=== PATIENT | male | born 1950 | race Caucasian/White ===

== ENCOUNTER 2019-10-03 09:22 | Outpatient (CLI) | payer MEDICARE, MEDICAID, SELFPAY ==
[2019-10-03 09:47] LABS: Basophils # 0.1 10^3/uL (0.0-0.1); Basophils % 0.7 %; Eosinophils # 0.1 10^3/uL (0.0-0.8); Hematocrit 51.9 % (42.0-52.0); Hemoglobin 16.6 g/dL (11.7-16.6); Lymphocytes # 1.9 10^3/uL (0.8-4.8); Mean Corpuscular Hemoglobin 32.9 pg (28.0-34.0); Mean Corpuscular Volume 102.8 fL (80-94); Mean Platelet Volume 9.7 fL (7.4-10.4); Monocytes # 0.8 10^3/uL (0.2-0.9); Monocytes % 8.4 %; Neutrophils # 6.6 10^3/uL (1.8-7.7); Neutrophils % 69.5 %; Nucleated Red Blood Cells % 0 %; Platelet Count 248 10^3/cmm (130-400); Red Blood Count 5.05 10^6/uL (4.1-5.3); Red Cell Distribution Width 13.2 % (12.1-15.1); White Blood Count 9.5 10^3/uL (4.0-10.0)
[2019-10-03 10:20] LABS: Estmated Average Glucose 157; Hemoglobin A1C 7.1 % (4.0-6.0)
[2019-10-03 10:49] LABS: Alanine Aminotransferase 20 U/L (0-41); Albumin Level 4.3 g/dL (3.5-5.2); Alkaline Phosphatase 73 IU/L (40-130); Anion Gap 18.2 (5-19); Aspartate Amino Transferase 20 U/L (0-40); Blood Urea Nitrogen 7 mg/dL (8-23); Calcium 9.3 mg/dL (8.5-10.5); Carbon Dioxide 30 mmol/L (22-29); Chloride 93 mmol/L (98-107); Chol HDL Ratio 4.61 mg/dL (1.0-5.00); Cholesterol 235 mg/dL (0-200); Globulin 3.3 g/dL (1.3-4.6); Glomerular Filtration Rate 83.9 mL/min (90-130); Glucose 134 mg/dL (65-115); HDL Cholesterol 51 mg/dL (60-100); LDL Cholesterol Calculated 143 mg/dL (50-129); Lactate Dehydrogenase 101 U/L (135-225); Magnesium 1.9 mg/dL (1.7-2.3); Osmolality Calculated 280 mOsm/kg (285-295); Potassium 5.2 mmol/L (3.5-5.1); Sodium 136 mmol/L (136-145); Total Bilirubin 0.6 mg/dL (0.15-1.2); Total Protein 7.6 g/dL (6.6-8.7); Triglycerides 206 mg/dL (0-150)
[2019-10-03 11:14] LABS: Prostate Specific Antigen 0.36 ng/mL (0-4)
== END 2019-10-03 09:23 | disposition home or self-care (01) ==
LOC: LAB 09:26
PROVIDERS: Family Provider Family Medicine; PCP Family Medicine; Visit Provider Family Medicine
DX: E11.65 Type 2 diabetes mellitus with hyperglycemia (principal); N42.9 Disorder of prostate, unspecified; I10 Essential (primary) hypertension; I48.91 Unspecified atrial fibrillation; J44.9 Chronic obstructive pulmonary disease, unspecified; E78.00 Pure hypercholesterolemia, unspecified
CPT/HCPCS: 80053; 80061; 82248; 83036; 83615; 83735; 84153; 85025

== ENCOUNTER 2019-12-28 13:21 | Outpatient (CLI) | payer MEDICARE, MEDICAID, SELFPAY ==
--- NOTE | 2019-12-28 13:32 | XR_ITS ---
WS: [id number] LUMBAR SPINE TECHNIQUE: 3 views of the lumbar spine CLINICAL INFORMATION: LOW BACK PAIN COMPARISON: None. FINDINGS: Osteopenia. Mild lumbar curve convex left. Disc space narrowing worse L4-5. Slight anterolisthesis L5 on S1 measuring 5.4 mm. Mild chronic compression superior endplate L3. Aortic calcification. Moderat e facet arthropathy L4-L5 and L5-S1. XR/XR lumbar spine 2-3V* [id number] IMPRESSION: 1. Mild lumbar curve convex left. Osteopenia. 2. Disc space narrowing worse L4-5. 3. Mild chronic compression inferior endplate L3. 4. 5.4 mm anterolisthesis L5 on S1.
--- NOTE | 2019-12-28 13:32 | XR_ITS ---
WS: [id number] HIP WITH PELVIS RIGHT TECHNIQUE: 3 views of the right hip with pelvis CLINICAL INFORMATION: RIGHT HIP PAIN COMPARISON: None. FINDINGS: Osteopenia. Moderate degenerative arthritis right hip. Joint space narrowing. No acute fractures. XR/XR hip RT 2-3V wo/w pel* [id number] IMPRESSION: Moderate degenerative arthritis right hip.
== END 2019-12-28 13:22 | disposition home or self-care (01) ==
LOC: LAB 13:27
PROVIDERS: Family Provider Family Medicine; PCP Family Medicine; Visit Provider Nurse Practitioner Family
DX: M54.5 Low back pain (principal); M25.551 Pain in right hip; M85.88 Other specified disorders of bone density and structure, other site; M48.56XA Collapsed vertebra, not elsewhere classified, lumbar region, initial encounter for fracture; M16.11 Unilateral primary osteoarthritis, right hip
CPT/HCPCS: 72100; 73502

== ENCOUNTER 2020-01-25 07:54 | Outpatient (CLI) | payer MEDICARE, MEDICAID, SELFPAY ==
--- NOTE | 2020-01-25 08:15 | CT_ITS ---
WS: [id number] CT LUMBAR SPINE TECHNIQUE: Noncontrast CT of the lumbar spine with coronal and sagittal reformatted images. CLINICAL INFORMATION: Low back pain COMPARISON: Radiograph December 28, 2019 DLP: 2043.[address] scans at [facility] use at least one of these dose optimization techniques: automat ed exposure control; mA and/or kV adjustment per patient size (includes targeted exams where dose is matched to clinical indication); or iterative reconstruction. FINDINGS: Mild lumbar curve convex left. Mild compression of the inferior endplate L3 with a small fracture steve ft. No retropulsion. This is new since 2017. Fracture cleft has a subacute appearance. Recommend shanta elation for low back pain. Small amount of sclerosis along the fracture. L1-L2: Normal. L2-L3: Disc osteophyte complex with slight impingement on the left subarticular recess. Mild central canal stenosis. Moderate facet arthropathy. Mild to moderate left and no significant right foraminal narrowing. Contact of the exiting left L2 nerve root. Mild facet arthropathy. L3-L4: Shallow right pericentral protrusion. Impingement on the traversing L3 nerve root. Moderate ce ntral canal stenosis. Mild left foraminal narrowing. Mild to moderate facet arthropathy. L4-L5: Disc osteophytic ridging. Slight effacement of ventral thecal sac. Mild central canal stenosis . Impingement on the exiting right L4 nerve root with moderate right foraminal narrowing. Mild left f oraminal narrowing. Moderate facet arthropathy. L5-S1: Tiny shallow central protrusion. Slight effacement of ventral thecal sac. Mild left and no sig nificant right foraminal narrowing. Mild facet arthropathy. Slightly ectatic distal abdominal aorta measuring 2.1 x 2.[address]/CT lumbar spine wo con* [id number] IMPRESSION: 1. Mild lumbar curve. 2. Mild compression of the inferior endplate L3 with fracture cleft has a suba cute appearance. Small amount of surrounding sclerosis. No retropulsion. Recomm end correlation for low back pain. This is new since 2017. 3. Mild central canal stenosis L2-L3, moderate central canal stenosis L3-4, an d mild central canal stenosis L4-5. 4. Shallow right subarticular protrusion L3-4 impinges the traversing right L4 nerve root. 5. Disc osteophyte complex L4-5 impinges the exiting right L4 nerve root with moderate right foraminal narrowing. Impingement right subarticular recess at th is level on traversing right L5 nerve root. 6. Shallow central protrusion L5-S1 with slight contact of the traversing S1 n erve roots without significant impingement.
--- NOTE | 2020-01-25 08:30 | XR_ITS ---
WS: [id number] LUMBAR SPINE FLEXION AND EXTENSION TECHNIQUE: 3 views of the lumbar spine: Lateral neutral, flexion, and extension views. CLINICAL INFORMATION: Low back pain COMPARISON: None. FINDINGS: Advanced spondylitic changes. Aortic calcification. Advanced facet arthropathy L5-S1 with bony forami nal narrowing. Mild compression inferior endplate L3 described on lumbar spine CT. Disc space narrowi ng worse at L4-L5. Osteopenia. No instability on flexion-extension. XR/XR lumbar spine f/e only [id number] IMPRESSION: 1. Mild compression inferior endplate L3 described on the lumbar spine CT. 2. Osteopenia. 3. No instability on flexion extension. 4. Disc space narrowing worse L4-5.
== END 2020-01-25 07:55 | disposition home or self-care (01) ==
LOC: RADWPI 07:57
PROVIDERS: Family Provider Family Medicine; PCP Family Medicine; Visit Provider Licensed Practical Nurse
DX: M48.56XA Collapsed vertebra, not elsewhere classified, lumbar region, initial encounter for fracture (principal); M85.88 Other specified disorders of bone density and structure, other site; M48.061 Spinal stenosis, lumbar region without neurogenic claudication; M25.78 Osteophyte, vertebrae; M51.27 Other intervertebral disc displacement, lumbosacral region
CPT/HCPCS: 72120; 72131

== ENCOUNTER 2020-02-28 09:44 | Outpatient (CLI) | payer MEDICARE, MEDICAID, SELFPAY ==
--- NOTE | 2020-02-28 10:00 | CT_ITS ---
WS: [id number] CT LUMBAR SPINE, noncontrast. HISTORY: Fracture TECHNIQUE: Contiguous 2.5 mm axial imaging are performed. Sagittal and coronal reformats are submitte d and reviewed. All CT scans at [facility] use at least one of these dose optimization te chniques: automated exposure control; mA and/or kV adjustment per patient size (includes targeted exa ms where dose is matched to clinical indication); or iterative reconstruction. IV contrast: None DLP: 1836.28 mGycm COMPARISON: 01/25/2020 Mild curvature the lower lumbar spine to the LEFT. There is asymmetric disc space narrowing at L4-5 w ith more significant narrowing on the RIGHT. Mild compression of the inferior endplate of L3 with a f racture still identified. No progression of the fracture and no displacement posteriorly. Approximate ly 20% fracture. L1-2: Normal. L2-3: Disc osteophyte complex encroaching upon the LEFT subarticular recess. Mild central stenosis du e to annular disc bulging, osteophytes and facet disease. Mild LEFT foraminal stenosis. L3-4: Mild annular disc bulging and facet arthritis. Mild osteophyte contact on the LEFT L3 nerve claude t. L4-5: Diffuse annular disc bulging and osteophytic ridging. Mild central stenosis and moderate RIGHT foraminal stenosis due to combination of osteophyte and facet arthritis. Mild stenosis LEFT foramen. L5-S1: Mild annular disc bulging with a central disc protrusion, mild effacement of the ventral theca l sac. Mild bilateral foraminal stenosis. Moderate atherosclerosis of aorta. Mild ectasia with no aneurysm. CT/CT lumbar spine wo con* [id number] IMPRESSION: 1. Unchanged subacute L3 compression fracture involving the inferior endplate without retropulsion. No progression. 2. Moderate RIGHT foraminal stenosis at L4-5 with mild central and LEFT forami nal stenosis, unchanged. 3. Are bilateral foraminal stenosis at L5-S1. 4. Disc osteophyte encroachment into the LEFT subarticular recess at L2-3 with mild LEFT foraminal stenosis. 5. Mild central stenosis at L2-3 and L3-4.
== END 2020-02-28 09:45 | disposition home or self-care (01) ==
LOC: RADWPI 09:47
PROVIDERS: Family Provider Family Medicine; PCP Family Medicine; Visit Provider Licensed Practical Nurse
DX: S32.030A Wedge compression fracture of third lumbar vertebra, initial encounter for closed fracture (principal); X58.XXXA Exposure to other specified factors, initial encounter; M48.061 Spinal stenosis, lumbar region without neurogenic claudication; M48.07 Spinal stenosis, lumbosacral region; M25.78 Osteophyte, vertebrae
CPT/HCPCS: 72131

== ENCOUNTER → 2020-03-01 13:26 | Outpatient (BNVA) | payer MEDICARE, MEDICAID, SELFPAY | PROVIDERS: Family Provider Family Medicine; PCP Family Medicine; Visit Provider Licensed Practical Nurse | DX: S32.030S Wedge compression fracture of third lumbar vertebra, sequela (principal); X58.XXXS Exposure to other specified factors, sequela; M51.16 Intervertebral disc disorders with radiculopathy, lumbar region; M48.062 Spinal stenosis, lumbar region with neurogenic claudication; M43.17 Spondylolisthesis, lumbosacral region; F17.210 Nicotine dependence, cigarettes, uncomplicated | CPT/HCPCS: 99213 ==

== ENCOUNTER → 2020-03-07 08:35 | Outpatient (BNVA) | payer MEDICARE, MEDICAID, SELFPAY | PROVIDERS: Family Provider Family Medicine; PCP Family Medicine; Visit Provider Urology | DX: Z12.5 Encounter for screening for malignant neoplasm of prostate (principal); N40.0 Benign prostatic hyperplasia without lower urinary tract symptoms; N40.1 Benign prostatic hyperplasia with lower urinary tract symptoms; N13.8 Other obstructive and reflux uropathy | CPT/HCPCS: 81001; 84153 ==

== ENCOUNTER → 2020-03-29 11:03 | Outpatient (BNVA) | payer MEDICARE, MEDICAID, SELFPAY | PROVIDERS: Family Provider Family Medicine; PCP Family Medicine; Visit Provider Specialist | DX: R05 Cough (principal); F17.210 Nicotine dependence, cigarettes, uncomplicated | CPT/HCPCS: 99213 ==

== ENCOUNTER 2020-05-01 09:37 | Outpatient (CLI) | payer MEDICARE, MEDICAID, SELFPAY ==
--- NOTE | 2020-05-01 10:00 | CT_ITS ---
WS: [id number] CT LUMBAR SPINE TECHNIQUE: Noncontrast CT of the lumbar spine with coronal and sagittal reformatted images. CLINICAL INFORMATION: Fracture COMPARISON: CT February 28, 2020 and 01/25/2020 DLP: 1798.[address] scans at [facility] use at least one of these dose optimization techniques: automat ed exposure control; mA and/or kV adjustment per patient size (includes targeted exams where dose is matched to clinical indication); or iterative reconstruction. FINDINGS: Mild lumbar curve. Again seen is mild compression inferior endplate L3 with fracture cleft. Small amount of sclerosis along the inferior endplate fracture cleft. No significant progression of the compression fracture. No significant retropulsion. Approximately 20% loss vertebral body height Disc space narrowing worse L4-5 with endplate sclerosis. L1-L2: Normal. L2-L3: Disc osteophyte complex with slight impingement on the left subarticular recess. Mild central canal stenosis. Moderate facet arthropathy. Mild to moderate left and no significant right foraminal narrowing. Contact of the exiting left L2 nerve root. Mild facet arthropathy. L3-L4: Shallow right pericentral protrusion. Impingement on the traversing right L3 nerve root. Moder ate central canal stenosis. Mild left foraminal narrowing. Mild to moderate facet arthropathy. L4-L5: Disc osteophytic ridging. Slight effacement of ventral thecal sac. Mild central canal stenosis . Impingement on the exiting right L4 nerve root with moderate right foraminal narrowing. Mild left f oraminal narrowing. Moderate facet arthropathy. L5-S1: Tiny shallow central protrusion. Slight effacement of ventral thecal sac. Mild left and no sig nificant right foraminal narrowing. Mild facet arthropathy. Slightly ectatic distal abdominal aorta measuring 2.1 x 2.[address]/CT lumbar spine wo con* [id number] IMPRESSION: 1. Unchanged L3 compression fracture involving the inferior endplate measuring approximately 20%. No retropulsion. This is unchanged. 2. No other significant changes from the prior examinations. 3. Stable ectatic distal abdominal aorta.
== END 2020-05-01 09:38 | disposition home or self-care (01) ==
LOC: RADWPI 09:47
PROVIDERS: Family Provider Family Medicine; PCP Family Medicine; Visit Provider Licensed Practical Nurse
DX: S32.030A Wedge compression fracture of third lumbar vertebra, initial encounter for closed fracture (principal); X58.XXXA Exposure to other specified factors, initial encounter; I77.811 Abdominal aortic ectasia
CPT/HCPCS: 72131

== ENCOUNTER → 2020-05-24 10:47 | Outpatient (BNVA) | payer MEDICARE, MEDICAID, SELFPAY | PROVIDERS: Family Provider Family Medicine; PCP Family Medicine; Visit Provider Licensed Practical Nurse | DX: S32.030S Wedge compression fracture of third lumbar vertebra, sequela (principal); M51.16 Intervertebral disc disorders with radiculopathy, lumbar region; M48.062 Spinal stenosis, lumbar region with neurogenic claudication; M43.17 Spondylolisthesis, lumbosacral region; X58.XXXS Exposure to other specified factors, sequela; F17.210 Nicotine dependence, cigarettes, uncomplicated | CPT/HCPCS: 99213 ==

== ENCOUNTER → 2020-06-12 10:34 | Outpatient (BNVA) | payer MEDICARE, MEDICAID, SELFPAY | PROVIDERS: Family Provider Family Medicine; PCP Family Medicine; Referring Provider Licensed Practical Nurse; Visit Provider Anesthesiology Pain Medicine | DX: M51.16 Intervertebral disc disorders with radiculopathy, lumbar region (principal); M47.816 Spondylosis without myelopathy or radiculopathy, lumbar region; M54.9 Dorsalgia, unspecified; S32.030S Wedge compression fracture of third lumbar vertebra, sequela; X58.XXXS Exposure to other specified factors, sequela; F17.210 Nicotine dependence, cigarettes, uncomplicated | CPT/HCPCS: 99204 ==

== ENCOUNTER → 2020-06-21 13:15 | Outpatient (BNVA) | payer MEDICARE, MEDICAID, SELFPAY | PROVIDERS: Family Provider Family Medicine; PCP Family Medicine; Visit Provider Anesthesiology Pain Medicine | DX: M51.16 Intervertebral disc disorders with radiculopathy, lumbar region (principal); M54.9 Dorsalgia, unspecified; F17.210 Nicotine dependence, cigarettes, uncomplicated | CPT/HCPCS: 64483; 64484; J1100; J3490 ==

== ENCOUNTER 2020-07-17 10:24 | Outpatient (CLI) | payer MEDICARE, MEDICAID, SELFPAY | END 2020-07-17 10:25 | disposition home or self-care (01) | PROVIDERS: PCP Family Medicine; Visit Provider Family Medicine | DX: B19.20 Unspecified viral hepatitis C without hepatic coma (principal) | CPT/HCPCS: 36416 ==

== ENCOUNTER 2020-10-14 08:22 | Outpatient (CLI) | payer MEDICARE, MEDICAID, SELFPAY ==
[2020-10-14 09:11] LABS: Basophils # 0.1 10^3/uL (0.0-0.1); Basophils % 1.3 %; Eosinophils # 0.2 10^3/uL (0.0-0.8); Eosinophils % 1.6 %; Hematocrit 47.9 % (42.0-52.0); Hemoglobin 16.2 g/dL (11.7-16.6); Lymphocytes # 1.8 10^3/uL (0.8-4.8); Lymphocytes % 19.2 %; Mean Corpuscular HGB Conc 33.8 g/dL (30.0-36.0); Mean Corpuscular Hemoglobin 32.5 pg (28.0-34.0); Mean Platelet Volume 9.6 fL (7.4-10.4); Monocytes # 0.8 10^3/uL (0.2-0.9); Monocytes % 8.8 %; Neutrophils # 6.62 10^3/uL (1.8-7.7); Neutrophils % 68.8 %; Nucleated Red Blood Cells % 0 %; Platelet Count 288 10^3/cmm (130-400); Red Blood Count 4.99 10^6/uL (4.1-5.3); Red Cell Distribution Width 13.8 % (12.1-15.1); White Blood Count 9.6 10^3/uL (4.0-10.0)
[2020-10-14 09:29] LABS: Alanine Aminotransferase 17 U/L (0-41); Albumin Level 4.1 g/dL (3.5-5.2); Alkaline Phosphatase 74 IU/L (40-130); Aspartate Amino Transferase 16 U/L (0-40); Blood Urea Nitrogen 10 mg/dL (8-23); Calcium 9.2 mg/dL (8.5-10.5); Carbon Dioxide 24 mmol/L (22-29); Chloride 96 mmol/L (98-107); Cholesterol 216 mg/dL (0-200); Globulin 3.3 g/dL (1.3-4.6); Glomerular Filtration Rate 111.8 mL/min (90-130); Glucose 126 mg/dL (65-115); HDL Cholesterol 48 mg/dL (60-100); LDL Cholesterol Calculated 118 mg/dL (50-129); LDL HDL Ratio 2.46 RATIO (0.00-3.22); Magnesium 1.8 mg/dL (1.7-2.3); Osmolality Calculated 281 mOsm/kg (285-295); Sodium 135 mmol/L (136-145); Total Bilirubin 0.6 mg/dL (0.15-1.2); Total Protein 7.4 g/dL (6.6-8.7); Triglycerides 252 mg/dL (0-150)
[2020-10-14 09:37] LABS: Anion Gap 18.8 (5-19); Potassium 3.8 mmol/L (3.5-5.1)
[2020-10-14 09:46] LABS: Lactate Dehydrogenase 144 U/L (135-225)
== END 2020-10-14 08:23 | disposition home or self-care (01) ==
LOC: LAB 08:26
PROVIDERS: PCP Family Medicine; Visit Provider Family Medicine
DX: R53.83 Other fatigue (principal); E11.65 Type 2 diabetes mellitus with hyperglycemia; E78.5 Hyperlipidemia, unspecified
CPT/HCPCS: 36415; 80053; 80061; 82248; 83615; 83735; 85025

== ENCOUNTER → 2021-03-07 07:56 | Outpatient (BNVA) | payer MEDICARE, MEDICAID, SELFPAY | PROVIDERS: PCP Family Medicine; Visit Provider Urology | DX: N40.1 Benign prostatic hyperplasia with lower urinary tract symptoms (principal); N13.8 Other obstructive and reflux uropathy; Z12.5 Encounter for screening for malignant neoplasm of prostate | CPT/HCPCS: G0103 ==

== ENCOUNTER → 2021-03-28 09:16 | Outpatient (BNVA) | payer MEDICARE, MEDICAID, SELFPAY | PROVIDERS: PCP Family Medicine; Visit Provider Specialist | DX: R05 Cough (principal); R55 Syncope and collapse | CPT/HCPCS: 99213 ==

== ENCOUNTER 2021-03-30 09:06 | Outpatient (CLI) | payer MEDICARE, MEDICAID, SELFPAY ==
[2021-03-30 09:24] VITALS: BMI 36.4
--- NOTE | 2021-03-30 09:24 | ECG_ITS ---
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 Interpretive Statements Name Of study: Lexiscan stress test Indication: Exertional dyspnea PROCEDURE: At the baseline, the blood pressure was 139/66 mmHg, oxygen saturation 93% with a heart rate of 73 bpm. The electrocardiogram showed normal sinus rhythm, normal axis with nonspecific T wave changes. The Lexiscan was infused over a period of 20 seconds. A total of 0.4 milligrams of Lexiscan was infused. The stress phase was continued for a total of 5 minutes. Heart rate at the end of the stress phase was 86 bpm, oxygen saturation 92% with a blood pressure of 123/56 mmHg. The EKG at the peak infusion revealed sinus rhythm with no significant ST-T wave changes. The study was terminated to protocol completion. Sestamibi was injected 20 seconds after the Lexiscan infusion. Blood pressure at the end of the recovery phase was 117/60 mmHg, oxygen saturation 91% with a heart rate of 87 beats per minute. CONCLUSION: 1. No significant EKG changes with the LexiScan infusion. 2. No LexiScan induced chest pain or cardiac arrhythmia. 3. Normal blood pressure and heart rate response. 4. Sestamibi/sestamibi perfusion scan pending; see separate report. Electronically Signed On 03-31-2021 18:04:08 CDT by Erna Sloan M.D. [id number]
--- NOTE | 2021-03-30 09:25 | NMCV_ITS ---
NM mejia perf SPECT r/s* [id number] Keith Pennington Age: 71 Gender: M : 1950 Exam Date: 03/30/2021 10:13 Ordering Phys: Erna Sloan MD ([email or web address]) Technologist: JAKUB Sellers Exam Location: [facility] Indications: CHEST PAIN STRESS TEST Please [facility] for [facility] IMAGE PROTOCOL Rest/Stress 1 Lexiscan Day Radiopharmaceutical Dose (mCi) Administration Site Administered by Rest: Tc-99m 10.7 IV JAKUB Pablo Sestamibi Stress:Tc-99m 33.0 IV JAKUB Pablo Sestamibi Rest: 30-Mar-2021 60 Discovery 630 Stress: 30-Mar-2021 30 Discovery 630 0.4mg Lexiscan. Images obtained in supine and prone position. SPECT RESULTS Technical Quality: Excellent Raw Data Analysis: Normal Image Corrections: No attenuation or motion correction applied Summed Stress Score: 8 Summed Rest Score: 5 Summed Difference Score: 3 PERFUSION FINDINGS Small sized perfusion abnormality of mild severity of mid to apical inferior and apical lateral wall on rest images with subtle reversibility in basal inferior and mid inferolateral dang on stress images. FUNCTIONAL RESULTS (calculated via Gated SPECT) Stress Image LV EF (%): 65 Stress EDV (mL):113 TID: 0.89 Stress ESV (mL):39 FUNCTIONAL FINDINGS: The left ventricle is normal in size. Transient Ischemia Dilatation of 0.89. There is normal left ventricular systolic function. The left ventricular ejection fraction is normal with a value of 65%. There is normal left ventricular wall thickening with no regional wall motion abnormality. IMPRESSIONS 1. Small sized partially reversible perfusion abnormality of basal to apical inferior, mid inferolateral and apical laterals. 2. This may represent old myocardial infarction in right coronary artery/circumflex artery territory with mild cheng-infarct ischemia. 3. Overall left ventricular systolic function is normal without regional wall motion abnormalities. 4. The left ventricular ejection fraction is normal with a value of 65%. 5. No significant EKG changes with Lexiscan infusion. Please refer to separate report for details. Erna Sloan MD (Electronically Signed) Final Date: 31 March 2021 18:05 S
[2021-03-30] MEDS: regadenoson 0.4 Mg/5 ml Syringe IVP (11:10)
[2021-03-30 11:16] VITALS: BP 117/60; PULSE 86
== END 2021-03-30 09:07 | disposition home or self-care (01) ==
LOC: CDL 09:09
PROVIDERS: PCP Family Medicine; Visit Provider Internal Medicine Cardiovascular Disease
DX: R07.9 Chest pain, unspecified (principal); R94.39 Abnormal result of other cardiovascular function study
CPT/HCPCS: 78452; 93017; A9500; J2785

== ENCOUNTER 2021-08-29 08:12 | Outpatient (CLI) | payer MEDICARE, MEDICAID, SELFPAY ==
[2021-08-29 08:56] LABS: Basophils # 0.1 10^3/uL (0.0-0.1); Basophils % 1.2 %; Eosinophils # 0.1 10^3/uL (0.0-0.8); Eosinophils % 1.1 %; Hematocrit 48.9 % (42.0-52.0); Hemoglobin 16.4 g/dL (11.7-16.6); Lymphocytes % 18.9 %; Mean Corpuscular HGB Conc 33.5 g/dL (30.0-36.0); Mean Corpuscular Hemoglobin 32.9 pg (28.0-34.0); Mean Platelet Volume 9.2 fL (7.4-10.4); Monocytes # 0.9 10^3/uL (0.2-0.9); Monocytes % 8.3 %; Neutrophils # 7.21 10^3/uL (1.8-7.7); Nucleated Red Blood Cells % 0 %; Platelet Count 309 10^3/cmm (130-400); Red Blood Count 4.99 10^6/uL (4.1-5.3); Red Cell Distribution Width 13.2 % (12.1-15.1); White Blood Count 10.3 10^3/uL (4.0-10.0)
[2021-08-29 09:32] LABS: Alanine Aminotransferase 18 U/L (0-41); Albumin Level 4.4 g/dL (3.5-5.2); Alkaline Phosphatase 79 IU/L (40-130); Blood Urea Nitrogen 12 mg/dL (8-23); Calcium 10.1 mg/dL (8.5-10.5); Carbon Dioxide 23 mmol/L (22-29); Chloride 94 mmol/L (98-107); Chol HDL Ratio 4.96 mg/dL (1.0-5.00); Cholesterol 233 mg/dL (0-200); Glomerular Filtration Rate 111.5 mL/min (90-130); Glucose 122 mg/dL (65-115); HDL Cholesterol 47 mg/dL (60-100); LDL Cholesterol Calculated 130 mg/dL (50-129); LDL HDL Ratio 2.77 RATIO (0.00-3.22); Magnesium 1.8 mg/dL (1.7-2.3); Osmolality Calculated 271 mOsm/kg (285-295); Prostate Specific Antigen 0.424 ng/mL (0-4); Sodium 130 mmol/L (136-145); Total Bilirubin 0.6 mg/dL (0.15-1.2); Total Protein 7.4 g/dL (6.6-8.7); Triglycerides 282 mg/dL (0-150)
[2021-08-29 09:38] LABS: Anion Gap 18.1 (5-19); Aspartate Amino Transferase 16 U/L (0-40); Potassium 5.1 mmol/L (3.5-5.1)
[2021-08-29 10:47] LABS: Lactate Dehydrogenase 199 U/L (135-225)
== END 2021-08-29 08:13 | disposition home or self-care (01) ==
PROVIDERS: PCP Family Medicine; Visit Provider Family Medicine
DX: Z01.89 Encounter for other specified special examinations (principal); R53.83 Other fatigue; Z79.899 Other long term (current) drug therapy
CPT/HCPCS: 36415; 80053; 80061; 82248; 83615; 83735; 84153; 85025; 86900

== ENCOUNTER 2021-09-12 09:46 | Outpatient (CLI) | payer MEDICARE, MEDICAID, SELFPAY ==
--- NOTE | 2021-09-12 09:56 | XR_ITS ---
WS: [id number] Exam: XR lumbar spine 2-3V* [id number] Date/Time of Exam: 09/12/2021 9:58 AM Reason For Exam: LOW BACK PAIN Comparison 01/25/2020. There is an old low-grade compression fracture of the inferior endplate of the L3. No other sign of l umbar fracture. A biconcave compression fracture of T12 has occurred since the prior study. No signif icant displacement. About 20% loss of vertebral height. Facet DJD at all levels. Disc degeneration a t L4-5. Mild spondylosis. Extensive aortoiliac atherosclerosis. XR/XR lumbar spine 2-3V* [id number] IMPRESSION: 1. Old low-grade compression fracture of the lower endplate of L3 without signi ficant displacement or loss of vertebral height. 2. No acute lumbar fracture is seen. 3. Biconcave compression fracture of T12 with about 20% loss of vertebral heigh t and no posterior displacement. This has occurred since the prior study. Fract ure age is indeterminate but the appearance is most suggestive of a healed frac ture. 4. Moderately advanced degenerative changes.
== END 2021-09-12 09:47 | disposition home or self-care (01) ==
PROVIDERS: PCP Family Medicine; Visit Provider Nurse Practitioner Family
DX: S22.088A Other fracture of T11-T12 vertebra, initial encounter for closed fracture (principal); X58.XXXA Exposure to other specified factors, initial encounter
CPT/HCPCS: 72100

== ENCOUNTER 2021-12-07 10:24 | Inpatient (IN) | payer MEDICARE, MEDICAID, SELFPAY ==
[2021-12-07] VITALS (11 sets, daily range): BP systolic 106–148; BP diastolic 60–79; PULSE 88–93; RESP 17–20; TEMP 36.6–36.8; O2SAT 87–94; BMI 33.4
--- NOTE | 2021-12-07 10:50 | ECG_ITS ---
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 Measurements Intervals [place] Rate: 90 P: 82 AK: 120 QRS: 53 QRSD: 82 T: 66 QT: 365 QTc: 449 Interpretive Statements SINUS RHYTHM NONSPECIFIC ST & T-WAVE ABNORMALITY No previous ECG available for comparison Electronically Signed On 12-07-2021 16:17:40 CDT by Erna Sloan M.D. [id number]
--- NOTE | 2021-12-07 10:50 | XR_ITS ---
WS: [id number] Portable AP upright chest, 12/07/2021 Clinical Data: chest pain Comparison: PA and lateral chest, 12/08/2017. Findings: There is a 7.9 cm density adjacent to the right tracheobronchial region. This has irregular border and is consistent with cancer of the lung. There is patchy opacity in the right lower lobe w hich may represent atelectasis or obstructive pneumonia. The left lung is clear. There is a recording device over the left hilum. No pneumothorax is present. The heart is normal. Monitor leads are on th e chest wall. XR/XR chest 1V portable [id number] Impression: 1. Probable right upper lobe mass suggestive of cancer of the lung. 2. Patchy opacity in right lower lobe which could represent obstructive pneumon ia or atelectasis. 3. Recommend CT scan of the chest.
--- NOTE | 2021-12-07 10:52 | PC.NURSE ---
Pt O2 Sat 82% after ambulation. Placed on O2 at 4L/NC once in bed, SpO2 up to 93% at rest
--- NOTE | 2021-12-07 10:58 | PC.NURSE ---
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
--- NOTE | 2021-12-07 11:11 | W.ED.CHESTPA ---
HPI - Chest Pain General: Chief Complaint: Chest Pain Stated Complaint: Low O2 Time Seen by Provider: 12/07/21 10:50 Source: patient Mode of arrival: ambulatory Limitations: no limitations History of Present Illness: 71-year-old male who states over the last 3 to 4 days has been having this cough with increasing shortness of breath. States his cough has been productive with low-grade fevers does have a history of COPD and longtime smoker patient is requiring 3 to 4 L of oxygen here does not wear oxygen at home baseline oxygen here was in the 80s. He has had some slight chest pain from coughing no vomiting no diarrhea Associated symptoms: Reports dyspnea and fever(s); Deny abdominal pain, nausea or vomiting Review of Systems Const: Reports: fever(s); Denies: chills, body aches or change in appetite Eyes: Denies: blurry vision or eye discomfort ENMT: Denies: throat pain or dental pain Card: Denies: chest pain Resp: Reports: dyspnea and non-productive cough GI: Denies: abdominal pain, nausea, vomiting or diarrhea : Denies: dysuria Musc: Denies: neck pain or back pain Skin/Breast: Denies: rash Neuro: Denies: headache(s) Psych: Denies: depression Jovany/Lymph: Denies: easy bruising All/Imm: Denies: urticaria PFSH ED PFSH: Medical History Asthmatic bronchitis Atrial fibrillation BPH (benign prostatic hyperplasia) BPH w urinary obs/LUTS COPD (chronic obstructive pulmonary disease) Cough syncope Diabetes Gross hematuria High cholesterol Intervertebral disc disorder with radiculopathy of lumbar region Kidney lesion Lumbar compression fracture 12/10/2019 Lumbar stenosis with neurogenic claudication Myalgia Seizure Sinusitis Skin cancer Spondylolisthesis of lumbosacral region Syncope and collapse Tobacco abuse Surgical History History of appendectomy History of eye surgery (~01/18/20) Status post placement of implantable loop recorder 12/17/2018 Family History Father , at age 80 CAD (coronary artery disease) Mother , at age 85 CAD (coronary artery disease) Stroke Family/Other CAD (coronary artery disease) Cancer Hyperlipidemia Sister Cancer Social History Alcohol intake: never Household members: significant other and children Marital status: Life Partner Current occupational status: disabled History of recent travel: No Physical Exam Const: COMMON NORMALS: patient oriented x3 GENERAL APPEARANCE: in distress and ill appearing HENMT: COMMON NORMALS: normocephalic and atraumatic HEAD & SCALP: normocephalic and atraumatic Eye: COMMON NORMALS: Equal, round and reactive pupils present and EOMs intact bilaterally PUPIL: Yes Equal, round and reactive pupils present Neck/C-Spine: COMMON NORMALS: full ROM and supple Chest: COMMONS NORMALS: normal inspection of the chest and normal palpation of entire chest wall Resp: EFFORT & INSPECTION: Yes tachypneic and Yes respiratory distress AUSCULTATION: rales Cardio: COMMON NORMALS: regular rate, regular rhythm and No murmurs present (Cardio) RATE: regular rate RHYTHM: regular rhythm GI: COMMON NORMALS: Normal to inspection, nondistended, normoactive bowel sounds present, Soft to palpation, non-tender and no masses PALPATION: Yes Soft to palpation Extremity: COMMON NORMALS: normal to inspection and full ROM Neuro: COMMON NORMALS: patient oriented x3, moves all extremities and no focal motor deficits Psych: COMMON NORMALS: mental status grossly normal, Normal thought process present and cooperative THOUGHT PROCESS: Normal thought process present Skin: COMMON NORMALS: no rashes or lesions noted and no wounds GENERAL SKIN EXAM: no rashes or lesions noted Course Vital Signs: Vital signs: Vital Signs Temperature 97.8 F 12/07/21 10:40 Pulse Rate 90 12/07/21 11:47 Respiratory Rate 18 12/07/21 11:42 Blood Pressure 106/63 12/07/21 10:40 Pulse Oximetry 94 12/07/21 11:42 MDM - Chest Pain Medical Decision Making Patient presents here with cough fever found to have a pneumonia along with a possible lung mass he is hypoxic as well requiring oxygen I spoke to hospitalist will admit at this time. Lab Data : 12/07/21 11:13 12/07/21 11:13 Radiology Impressions Chest X-Ray 12/07/21 10:50 Impression: 1. Probable right upper lobe mass suggestive of cancer of the lung. 2. Patchy opacity in right lower lobe which could represent obstructive pneumonia or atelectasis. 3. Recommend CT scan of the chest. Laboratory Results WBC 14.2 10^3/uL (4.0-10.0) H 12/07/21 11:13 RBC 4.54 10^6/uL (4.1-5.3) 12/07/21 11:13 Hgb 14.1 g/dL (11.7-16.6) 12/07/21 11:13 Hct 41.8 % (42.0-52.0) L 12/07/21 11:13 MCV 92.1 fl (80-94) 12/07/21 11:13 MCH 31.1 pg (28.0-34.0) 12/07/21 11:13 MCHC 33.7 g/dL (30.0-36.0) 12/07/21 11:13 RDW 13.3 % (12.1-15.1) 12/07/21 11:13 Plt Count 501 10^3/cmm (130-400) H 12/07/21 11:13 MPV 9.1 fL (7.4-10.4) 12/07/21 11:13 Neut % (Auto) 80.4 % 12/07/21 11:13 Lymph % (Auto) 11.4 % 12/07/21 11:13 Stewart % (Auto) 6.6 % 12/07/21 11:13 Eos % (Auto) 0.4 % 12/07/21 11:13 Baso % (Auto) 0.5 % 12/07/21 11:13 Neut # (Auto) 11.39 10^3/uL (1.8-7.7) H 12/07/21 11:13 Lymph # (Auto) 1.6 10^3/uL (0.8-4.8) 12/07/21 11:13 Stewart # (Auto) 0.9 10^3/uL (0.2-0.9) 12/07/21 11:13 Eos # (Auto) 0.1 10^3/uL (0.0-0.8) 12/07/21 11:13 Baso # (Auto) 0.1 10^3/uL (0.0-0.1) 12/07/21 11:13 Nucleated RBC % (auto) 0 % 12/07/21 11:13 Nucleated RBCs # 0.0 /100WBC 12/07/21 11:13 Sodium 127 mmol/L (136-145) L 12/07/21 11:13 Potassium 3.8 mmol/L (3.5-5.1) 12/07/21 11:13 Chloride 90 mmol/L (98-107) L 12/07/21 11:13 Carbon Dioxide 22 mmol/L (22-29) 12/07/21 11:13 Anion Gap 19.8 (5-19) H 12/07/21 11:13 BUN 7 mg/dL (8-23) L 12/07/21 11:13 Creatinine 0.6 mg/dL (0.7-1.2) L 12/07/21 11:13 GFR Calculation 133.2 mL/min (90-130) H 12/07/21 11:13 Glucose 134 mg/dL (65-115) H 12/07/21 11:13 Calculated Osmolality 264 mOsm/kg (285-295) L 12/07/21 11:13 Calcium 8.9 mg/dL (8.5-10.5) 12/07/21 11:13 Total Bilirubin 0.5 mg/dL (0.15-1.2) 12/07/21 11:13 AST 28 U/L (0-40) 12/07/21 11:13 ALT 20 U/L (0-41) 12/07/21 11:13 Alkaline Phosphatase 181 IU/L (40-130) H 12/07/21 11:13 Troponin T Baseline 12 ng/L (0-15) 12/07/21 11:13 Total Protein 7.3 g/dL (6.6-8.7) 12/07/21 11:13 Albumin 3.0 g/dL (3.5-5.2) L 12/07/21 11:13 Globulin 4.1 g/dL (1.3-4.6) 12/07/21 11:13 SARS-CoV-2 Ag (Rapid) Negative (Negative) 12/07/21 11:20 EKG Data EKG 1: I personally reviewed and interpreted this EKG as follows: EKG interpretation date: 12/07/21 EKG interpretation time: 10:36 Interpretation: nsr hr [address] or t wave abnormalities qrs 82 qtc 413 Critical Care Time Critical Care Time: Critical Care Time: Yes Total Critical Care Time: 40 Attestation: The high probability of a clinically significant, sudden or life threatening deterioration of the patient's pulm system(s) required my full and direct attention, intervention and personal management. The critical care time is as shown. This time is in addition to time spent performing any reported procedures but includes the following: [x] Data and vital sign review and interpretation [x] Patient assessment, examination and intervention [x] Documentation [x] Medication orders and management Discharge Plan Discharge Patient Disposition: Admitted As Inpatient Clinical Impression: Pneumonia, Lung mass, Acute respiratory failure with hypoxemia Condition: Stable Coding Level of Care Code ED Bath Mix Operator for José Miguel Fwerendira Exam Comprehensive
--- NOTE | 2021-12-07 11:26 | CTR_ITS ---
PROCEDURE INFORMATION: Exam: CT Chest Without Contrast; Diagnostic Exam date and time: 12/07/2021 11:37 AM Age: 71 years old Clinical indication: Shortness of breath; Additional info: SOB TECHNIQUE: Imaging protocol: Diagnostic computed tomography of the chest without contrast. Radiation optimization: All CT scans at this facility use at least one of these dose optimization techniques: automated exposure control; mA and/or kV adjustment per patient size (includes targeted exams where dose is matched to clinical indication); or iterative reconstruction. COMPARISON: CT chest w con* [id number] 12/17/2017 8:46 AM RADIATION DOSE METRICS: Total DLP (mGy-cm): 989.86 FINDINGS: Lungs: Patulous consolidative opacities centered in the medial and posterior aspects of the right upper lobe. Broad regions of ground-glass opacity also noted within the right middle and lower lobes. These findings are new from most recent comparison. Pleural spaces: Small volume parapneumonic effusion. No pneumothorax. Heart: Coronary artery calcifications noted. No cardiomegaly. No pericardial effusion. Lymph nodes: Unremarkable. No enlarged lymph nodes. Vasculature: Unremarkable. No aortic aneurysm. Bones/joints: Moderate chronic appearing compression deformity with sclerosis involving the L1 vertebral body. Soft tissues: Loop recorder device noted in the left chest wall. CT/CT chest wo con [id number] IMPRESSION: Multifocal pneumonia throughout the right lung with small volume parapneumonic effusion.
[2021-12-07 11:33] LABS: Basophils # 0.1 10^3/uL (0.0-0.1); Basophils % 0.5 %; Eosinophils # 0.1 10^3/uL (0.0-0.8); Eosinophils % 0.4 %; Hematocrit 41.8 % (42.0-52.0); Hemoglobin 14.1 g/dL (11.7-16.6); Lymphocytes # 1.6 10^3/uL (0.8-4.8); Lymphocytes % 11.4 %; Mean Corpuscular HGB Conc 33.7 g/dL (30.0-36.0); Mean Corpuscular Hemoglobin 31.1 pg (28.0-34.0); Mean Corpuscular Volume 92.1 fl (80-94); Mean Platelet Volume 9.1 fL (7.4-10.4); Monocytes # 0.9 10^3/uL (0.2-0.9); Monocytes % 6.6 %; Neutrophils # 11.39 10^3/uL (1.8-7.7); Neutrophils % 80.4 %; Nucleated Red Blood Cells % 0 %; Platelet Count 501 10^3/cmm (130-400); Red Blood Count 4.54 10^6/uL (4.1-5.3); Red Cell Distribution Width 13.3 % (12.1-15.1); White Blood Count 14.2 10^3/uL (4.0-10.0)
[2021-12-07] MEDS: ipratropium-albuterol 3 mL Neb INHALATION ×3 (11:42→20:01)
[2021-12-07 11:55] LABS: Alanine Aminotransferase 20 U/L (0-41); Aspartate Amino Transferase 28 U/L (0-40); Calcium 8.9 mg/dL (8.5-10.5); Carbon Dioxide 22 mmol/L (22-29); Total Bilirubin 0.5 mg/dL (0.15-1.2); Total Protein 7.3 g/dL (6.6-8.7)
[2021-12-07 11:56] LABS: Troponin(5th) Baseline 12 ng/L (0-15)
[2021-12-07 11:58] LABS: SARS Covid-2 Antigen Negative (Negative)
[2021-12-07 12:05] LABS: Alkaline Phosphatase 181 IU/L (40-130); Blood Urea Nitrogen 7 mg/dL (8-23); Chloride 90 mmol/L (98-107); Globulin 4.1 g/dL (1.3-4.6); Glomerular Filtration Rate 133.2 mL/min (90-130); Glucose 134 mg/dL (65-115); Osmolality Calculated 264 mOsm/kg (285-295); Sodium 127 mmol/L (136-145)
[2021-12-07 12:06] LABS: Anion Gap 19.8 (5-19); Potassium 3.8 mmol/L (3.5-5.1)
[2021-12-07] MEDS: cefTRIAXone 1,000 MG in sodium chloride 0.9% (plus) 50 ML 100 MG IV (12:21)
[2021-12-07] MEDS: azithromycin 500 MG in sodium chloride 0.9% 250 ML 250 MG IV (12:25)
--- NOTE | 2021-12-07 12:50 | ECG_ITS ---
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 Measurements Intervals [place] Rate: 88 P: 82 WA: 124 QRS: 55 QRSD: 82 T: 63 QT: 372 QTc: 451 Interpretive Statements SINUS RHYTHM NONSPECIFIC T-WAVE ABNORMALITY Compared to ECG 12/07/2021 10:36:47 No significant changes Electronically Signed On 12-07-2021 16:24:09 CDT by Erna Sloan M.D. [id number]
--- NOTE | 2021-12-07 13:05 | P.HP_ITS ---
Providers/Chief Complaint Admitting Physician: Yinka Hernandez MD Primary Care Provider: Fox Alston Chief Complaint: Low O2 History of Present Illness Keith Pennington is a 71 year old male with past medical history of atrial fibrillation, chronic smoker, COPD, recurrent episode of syncope with implantable loop recorder, CAD, recent positive stress test awaiting cardiac cat heterization. He presents to the ER today with worsening shortness of breath over the last 3 weeks along with cough and expectoration which he attributes to a possible congestive heart failure Denies any hemoptysis. States shortness of breath gets worse on walking around and on talking. Denies any orthopnea and PND. usually is not able to sleep at night because of prostate issues but never woken up because of difficulty in breathing. States he has lost around 15 pounds over the last 2 weeks. Has noticed some swelling in his legs. Complaining of runny nose and postnasal drip. Denies any sick contact or recent travels. Review of Systems General: Reports: 10 or more systems reviewed and unremarkable except in HPI and below Const: Denies: fever(s), chills, body aches, change in appetite, change in weight, malaise, night sweats, diaphoresis, change in sleep pattern, daytime sleepiness or snoring Eyes: Denies: change in vision, blurry vision, photophobia, eye discomfort or eye discharge ENMT: Denies: throat pain, enlarged tonsils, hoarseness, mouth pain, oral sores, dry mouth, tinnitus, nasal congestion or post nasal drip Card: Denies: chest pain, palpitations, irregular heart rhythm, edema, swelling of feet/ankles, lightheadedness, syncope, pre-syncope, dyspnea on exe rtion, orthopnea, leg pain with exertion or acrocyanosis Resp: Denies: dyspnea, productive cough, non-productive cough, wheezing, stridor, pain on inspiration, change in phlegm color, hemoptysis or chest congestion GI: Denies: abdominal pain, nausea, vomiting, hematemesis, coffee ground emesis, dysphagia, heartburn, diarrhea, constipation, bloating, GI cramping, change in bowel habits, pain on defecation, hematochezia or melena : Denies: flank pain, difficulty urinating, dysuria, urinary frequency, urin jose urgency, urinary hesitancy, urinary dribbling, difficulty starting urination, change in urine stream, nocturia or hematuria Musc: Denies: neck pain, back pain, extremity pain, joint pain, joint swelling, joint redness, joint stiffness or limited range of motion Neuro: Denies: headache(s), numbness in extremities, weakness in extremities, sensory changes, lack of coordination, difficulty walking, frequent falls, dizziness, vertigo, confusion, Slurred speech present, difficulty communicating thoughts or seizure-like activity Psych: Denies: anxiety, depression, mood swings, panic attacks, hopelessness or irritability Endo: Denies: polyuria, polydipsia, tired all the time, cold intolerance, excessive sweating, flushing or heat intolerance Jovany/Lymph: Denies: easy bruising or easy bleeding All/Imm: Denies: tongue swelling, facial swelling or acute wheezing Medications/Allergies Home Medications Medication Instructions Recorded Confirmed Last Taken Type albuterol sulfate 90 mcg/actuation 2 puff INHALATION Q6H PRN 08/05/19 12/07/21 12/07/21 History aerosol inhaler (ProAir HFA) amlodipine 10 mg tablet 10 mg PO QDAY 08/05/19 12/07/21 12/06/21 History budesonide-formoterol HFA 160 2 puff INHALATION BID 08/05/19 12/07/21 12/07/21 History mcg-4.5 mcg/actuation aerosol inhaler (Symbicort) fluticasone furoate 200 1 inh INHALATION Q24H 08/05/19 12/07/21 12/07/21 History mcg-vilanterol 25 mcg/dose inhalation powder (Breo Ellipta) fluticasone propionate 50 1 spray INTRANASAL BID 08/05/19 12/07/21 12/07/21 History mcg/actuation nasal spray,suspension ibuprofen 800 mg tablet 800 mg PO Q8H 08/05/19 12/07/21 12/06/21 History metformin 500 mg tablet 500 mg PO BID 08/05/19 12/07/21 12/07/21 History tiotropium bromide 18 mcg capsule 1 cap INHALATION QDAY 08/05/19 12/07/21 12/07/21 History with inhalation device (Spiriva with HandiHaler) tizanidine 4 mg tablet 4 mg PO Q8H PRN 08/05/19 12/07/21 Unknown History nitroglycerin 2.5 mg 2.5 mg PO DAILY cap 02/07/20 12/07/21 12/06/21 History capsule,extended release fluoxetine 20 mg capsule (Prozac) 20 mg PO BID cap 03/07/20 12/07/21 12/07/21 History omeprazole 20 mg capsule,delayed 20 mg PO BID cap 03/07/20 12/07/21 12/07/21 History release simvastatin 20 mg tablet 40 mg PO QDAY tab 03/07/20 12/07/21 12/06/21 History finasteride 5 mg tablet 5 mg PO DAILY 03/07/21 12/07/21 12/06/21 History levetiracetam 500 mg tablet 500 mg PO BID 90 Days #180 tab 03/28/21 12/07/21 12/07/21 Rx (Keppra) metoprolol succinate 25 mg 25 mg PO BID #180 tab 05/04/21 12/07/21 12/07/21 Rx tablet,extended release 24 hr aspirin 81 mg tablet,delayed 81 mg PO QDAY #90 tab 06/08/21 12/07/21 12/07/21 Rx release (Adult Low Dose Aspirin) tamsulosin 0.4 mg capsule 0.4 mg PO DAILY #90 cap 06/27/21 12/07/21 12/07/21 Rx furosemide 20 mg tablet 20 mg PO QAM tab 08/03/21 12/07/21 12/06/21 History semaglutide 3 mg tablet (Rybelsus) 3 mg PO DAILY 08/03/21 12/07/21 12/07/21 History apixaban 5 mg tablet (Eliquis) 5 mg PO BID #180 tab 10/12/21 12/07/21 12/07/21 Rx isosorbide dinitrate 5 mg tablet 5 mg PO BID 12/07/21 12/07/21 12/07/21 History promethazine-DM 6.25 mg-15 mg/5 mL 5 ml PO Q6H PRN 12/07/21 12/07/21 12/07/21 History oral syrup Allergies Allergy/AdvReac Type Severity Reaction Status Date / Time No Known Allergies Allergy Verified 12/07/21 12:37 PFSH Acute PFSH: Medical History (Updated 12/07/21 @ 13:33 by Yinka Hernandez MD) Asthmatic bronchitis Atrial fibrillation BPH (benign prostatic hyperplasia) BPH w urinary obs/LUTS COPD (chronic obstructive pulmonary disease) Cough syncope Diabetes Facet arthropathy, lumbar Gross hematuria High cholesterol Intervertebral disc disorder with radiculopathy of lumbar region Kidney lesion Kidney lesion Lumbar compression fracture 12/10/2019 Lumbar stenosis with neurogenic claudication Myalgia Positive cardiac stress test Seizure Sinusitis Skin cancer Spinal stenosis, lumbar region with neurogenic claudication Spondylolisthesis of lumbosacral region Syncope and collapse Tobacco abuse Surgical History History of appendectomy History of eye surgery (~01/18/20) Status post placement of implantable loop recorder 12/17/2018 Family History Father , at age 80 CAD (coronary artery disease) Mother , at age 85 CAD (coronary artery disease) Stroke Family/Other CAD (coronary artery disease) Cancer Hyperlipidemia Sister Cancer Social History Alcohol intake: never Household members: significant other and children Marital status: Life Partner Current occupational status: disabled History of recent travel: No Vitals/I&O/Wt Last Vital Signs Temp 97.8 F 12/07/21 10:40 Pulse 88 12/07/21 12:43 Resp 18 12/07/21 12:43 BP 121/79 12/07/21 12:43 Pulse Ox 93 12/07/21 12:43 Weight last 48 hrs Weight 105.687 kg Physical Exam Narrative: General: No acute distress, AO x3 HEENT: PERRLA, pupils bilaterally equal and reactive Chest: Bilateral bronchial breath sounds, coarse crackles present in right lower zone, decreased air entry right upper zone, coarse crackles present bilateral lower zones CVS: S1-S2 regular, no murmurs, no tachycardia, no gallops, no rubs Abdomen: Soft, nontender, no organomegaly, bowel sounds present Neuro: No focal deficits, no facial deformity, AO x3, power 5/5 in all limbs Data : 12/07/21 11:13 12/07/21 11:13 Micro: Microbiology 12/07/21 11:22 Blood Culture - Preliminary Blood SPECIMEN COLLECTED 12/07/21 11:13 Blood Culture - Preliminary Blood SPECIMEN COLLECTED A&P Assessment and plan (1) Acute respiratory failure with hypoxemia: Status: Acute (2) Dyspnea on exertion: Status: Acute (3) Pneumonia: Status: Acute (4) Lung mass: Status: Acute (5) COPD (chronic obstructive pulmonary disease): Status: Acute (6) Atrial fibrillation: Status: Acute Qualifiers: Atrial fibrillation type: paroxysmal Qualified Code(s): I48.0 - Paroxysmal atrial fibrillation (7) Diabetes: Status: Acute Qualifiers: Diabetes mellitus complication status: without complication Diabetes mellitus terminal computer operator insulin use: without terminal computer operator use Diabetes mellitus type: type 2 Qualified Code(s): E11.9 - Type 2 diabetes mellitus without comp lications (8) Positive cardiac stress test: Status: Acute (9) Smoking: Status: Acute (10) Hyponatremia: Most likely secondary to hypervolemic hyponatremia cannot rule out SIADH given possibility of lung malignancy. Check urine lites, urine osmolality. IV Lasix 40 mg once. Fluid restriction. Continue to monitor daily for now. Status: Acute Plan Hypoxic respiratory failure: Chest x-ray done today concerning for possible lung mass in right upper lobe, postobstructive pneumonia in right lower lobe leading to COPD exacerbation. Check D-dimer, sputum culture, urine Legionella, bacterial antigen, MRSA swab, flu swab, sputum culture, COVID-19 PCR, proBNP. Depending on level of D-dimer will plan for CT chest versus CTA. For now continue with treatment for community-acquired pneumonia with azithromycin 500 mg oral daily, ceftriaxone IV 1 g daily. Cannot rule out mucous plug. Aggressive pulmonary toilet with incentive spirometry and chest vest. For COPD exacerbation: DuoNebs every 6 hour, budesonide twice daily. IV Solu-Medrol 40 mg twice daily for now. Will do a quick taper. Cannot rule out possible congestive heart failure. Patient has history of positive stress test with CAD. Fluid restriction up to 1500 cc. Check proBNP. IV Lasix 40 mg once. Will dose Lasix as per clinical picture. Strict input output charting, daily weights. Chronic smoker. History of seizures. Atrial fibrillation: Continue with home dose of metoprolol. Eliquis for anticoagulation. History of CAD: Positive stress test within last 6 months. Awaiting early cardiac angiogram. Continue with home dose of aspirin, statin, beta-gracie, Imdur. Hypertension: Goal blood pressure less than 140/90 mmHg. Full code. Cardiac carb consistent diet. Eliquis will suffice for DVT prophylaxis. Famotidine for PUD prophylaxis. Attestations Medical Necessity Statement*: Admission for more than 2 midnights for management of hypoxic respiratory failure secondary to postobstructive pneumonia, possible right lung mass Time Spent in Patient Care: Greater than 35 minutes Coding Level of Care Code Acute Articulation Officer for [facility] Diagnoses Acute respiratory failure with hypoxemia J96.01 Dyspnea on exertion R06.00 Pneumonia J18.9 Lung mass R91.8 COPD (chronic obstructive pulmonary disease) J44.9 Atrial fibrillation I48.0 Atrial fibrillation type: paroxysmal Diabetes E11.9 Diabetes mellitus complication status: without complication Diabetes mellitus long-term insulin use: without long-term use Diabetes mellitus type: type 2 Positive cardiac stress test R94.39 Smoking F17.200 Hyponatremia E87.1
--- NOTE | 2021-12-07 13:09 | USCV_ITS ---
Keith Pennington Age: 71 Gender: M : 1950 Exam Date: 12/07/2021 16:11 Ordering Phys: Yinka Hernandez MD Technologist: Lucero Michaud Exam Location: [facility] [place] Indication: chf BP: 121 / 79 HR: 124 Rhythm: Sinus Technical Quality: Adequate MEASUREMENTS (Male / Female) Normal Values 2D ECHO LV Diastolic Diameter PLAX 5.1 cm 4.2 - 5.9 / 3.9 - 5.3 cm LV Systolic Diameter PLAX 3.4 cm LV Chamber Size 4.0 cm IVS Diastolic Thickness 1.2 cm 0.6 - 1.0 / 0.6 - 0.9 cm IVS Systolic Thickness 1.2 cm LVPW Diastolic Thickness 1.8 cm 0.6 - 1.0 / 0.6 - 0.9 cm LVPW Systolic Thickness 1.5 cm RV Chamber Size 3.3 cm LVOT Diameter 2.0 cm LV Ejection Fraction 2D Teich 59.9 % LV Ejection Fraction MOD 2C 47.1 % LV Ejection Fraction 2C AL 48.5 % LA Diameter 3.3 cm LA Width 3.3 cm LA Height 5.0 cm RA Width 3.1 cm RA Height 4.8 cm Aorta at Sinotubular Diameter 2.9 cm IVC Diameter 1.9 cm M-MODE Aortic Annulus Diameter 3.6 cm LA Ao Ratio MM 1.0 MV E Point Septal Separation 0.8 cm DOPPLER AV Peak Velocity 163.0 cm/s LVOT Peak Velocity 114.0 cm/s AV Area Cont Eq vti 2.8 cm squared AV Area Cont Eq pk 2.2 cm squared MV Area PHT 3.7 cm squared Mitral E to A Ratio 0.8 MV E' Velocity 46.5 cm/s Mitral E to MV E' Ratio 12.3 Mitral E to LV E' Lateral Ratio 11.8 Mitral E to LV E' Septal Ratio 13.1 TR Peak Velocity 198.3 cm/s TR Peak Gradient 15.7 mmHg TR Mean Velocity 138.3 cm/s TR Mean Gradient 8.9 mmHg TR Velocity Time Integral 42.4 cm TV Peak E Velocity 56.0 cm/s Right Atrial Pressure 3.0 mmHg Pulmonary Artery Systolic Pressu 18.7 mmHg PV Peak Velocity 72.0 cm/s RV Acceleration Time 0.2 s RV Ejection Time 0.3 s RV AcT/ET 0.5 FINDINGS Left Ventricle Normal left ventricular size. LV systolic function is borderline normal with EF of 50-55%. Normal wall motion abnormalities are seen. Grade 1 diastolic dysfunction Right Ventricle The right ventricle is normal in size and function. Right Atrium The right atrium is normal in size. Left Atrium The left atrium is normal in size. Mitral Valve Mitral valve is thickened without significant stenosis or prolapse. There is no mitral regurgitation. Aortic Valve Aortic valve is thickened without significant stenosis. There is no aortic regurgitation. Tricuspid Valve Structurally normal tricuspid valve without significant stenosis. Trace tricuspid regurgitation. Pulmonary artery systolic pressure is normal. Pulmonic Valve Not well visualized Pericardium Trace pericardial effusion Aorta Normal ascending aorta dimension. IVC CONCLUSIONS LV systolic function is borderline normal with EF of 50-55%. Grade 1 diastolic dysfunction Mitral valve is thickened and aortic valve is thickened Trace tricuspid regurgitaion No comparison studies are available Carlton Wilson MD (Electronically Signed) Final Date: 08 Dec 2021 10:01 S
[2021-12-07 13:41] LABS: NT Pro B Type Natriuretic Pept 519 pg/mL (0-125); Thyroid Stimulating Hormone 2.11 uIU/mL (0.27-4.20)
[2021-12-07 13:47] LABS: D Dimer 0.98 ug/mIFEU (0-0.59)
[2021-12-07 13:52] LABS: Iron 20 ug/dL (59-158); Percent Saturation 8.2 % (20-50); Total Iron Binding Capacity 243 mcg/dl; Unsaturated Iron Binding 223 ug/dL (112-347)
[2021-12-07 14:05] LABS: Troponin 5 2HR 11.64 ng/L (0-15)
[2021-12-07 14:26] LABS: Troponin 5 2HR Delta -0.36 ABS# (0-10)
[2021-12-07 14:37] LABS: Add Urine Microscopic? NO; Charge for UA Resulting for Rev
[2021-12-07 14:41] LABS: Potassium, Radom Urine 31 mmol/L; Urine Random Chloride 39 mmol/L; Urine Random Sodium 33 mmol/L
[2021-12-07 14:47] LABS: Bilirubin Urine Neg (Negative); Blood Urine Neg (Negative); Glucose Urine UA Norm (Normal); Ketones Urine Negative (Negative); Leukocyte Esterase Urine Negative (Negative); Nitrate Urine Negative (Negative); Protein Urine Neg (Negative); Specific Gravity, Urine 1.005 (1.005-1.030); Urine Appearance Clear (CLEAR); Urine Color Yellow (Yellow); Urobilinogen Urine Norm (Negative); pH Urine 7 (5-7)
[2021-12-07] MEDS: famotidine 20 mg/2 mL INJ IVP (14:59)
[2021-12-07] MEDS: FUROsemide 10 mg/mL SDV 4mL 40 MG IVP (14:59)
[2021-12-07] MEDS: benzonatate 100 mg Capsule PO ×2 (14:59→22:12)
[2021-12-07 16:36] LABS: Adenovirus Not Detected (NOT DETECT); Chlamydia Pneumoniae Not Detected (NOT DETECT); Coronavirus 229E,HKU1,NL63,OC4 Not Detected (NOT DETECT); Human Metapneumovirus Not Detected (NOT DETECT); Human Rhinovirus/Enterovirus Not Detected (NOT DETECT); Influenza A Not Detected (NOT DETECT); Influenza A H1 Not Detected (NOT DETECT); Influenza A H1-2009 Not Detected (NOT DETECT); Influenza A H3 Not Detected (NOT DETECT); Influenza B Not Detected (NOT DETECT); Mycoplasma Pneumoniae Not Detected (NOT DETECT); Parainfluenza Virus Type 1 Not Detected (NOT DETECT); Parainfluenza Virus Type 2 Not Detected (NOT DETECT); Parainfluenza Virus Type 3 Not Detected (NOT DETECT); Parainfluenza Virus Type 4 Not Detected (NOT DETECT); Respiratory Syncytial Virus A Not Detected (NOT DETECT); Respiratory Syncytial Virus B Not Detected (NOT DETECT); SARS-COV-2 Not Detected (NOT DETECT)
[2021-12-07 16:38] LABS: Results from GENMARK
--- NOTE | 2021-12-07 16:50 | ECG_ITS ---
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 Measurements Intervals [place] Rate: 98 P: 69 SC: 143 QRS: 53 QRSD: 80 T: 67 QT: 337 QTc: 431 Interpretive Statements SINUS RHYTHM NONSPECIFIC ST & T-WAVE ABNORMALITY Compared to ECG 12/07/2021 13:21:19 No significant changes Electronically Signed On 12-07-2021 16:36:05 CDT by Erna Sloan M.D. [id number]
[2021-12-07] MEDS: metoprolol succinate ER (24 HR) 25 mg Tablet PO (17:09)
[2021-12-07] MEDS: levETIRAcetam 500 mg Tablet PO (17:09)
[2021-12-07] MEDS: apixaban 5 mg Tablet PO (17:09)
[2021-12-07] MEDS: ferrous gluconate 324 mg Tablet PO (17:09)
[2021-12-07 17:10] LABS: Glucose Point of Care 253 mg/dL (70-110)
[2021-12-07] MEDS: isosorbide dinitrate 20 mg Tablet 5 MG PO (17:10)
[2021-12-07] MEDS: fluoxetine 20 mg Capsule PO (17:10)
[2021-12-07] MEDS: insulin lispro 100 unit/1 mL SUBCUT ×2 (17:40→22:12)
[2021-12-07 17:48] LABS: Troponin 5 6HR 10.39 ng/L (0-15)
--- NOTE | 2021-12-07 18:28 | PC.NURSE ---
Patient arrived to floor earlier in shift with no c/o pain, AAOx4, low oxygen with remaining VSS, Placed on telemetry and continuous Pulse ox. Patient has redness to face and says its his normal. Refuses to remove jeans but did put on gown. Has urinal at bedside but has complications making it in time. Patient stated he has not bathed in a month because of fear of falling in tub so may need CM assistance. Pleasant and calm. took medications home with her. No new events or needs. Room clean and clutter free. Call light in reach. Will report to oncoming nurse at bedside at shift change. Frequently repositions self. Bed rails padded with suctioning at bedside for seizure precautions.
[2021-12-07] MEDS: budesonide 0.5 mg/2 mL Neb INHALATION (19:40)
[2021-12-07 21:40] LABS: Glucose Point of Care 286 mg/dL (70-110)
[2021-12-08] VITALS (15 sets, daily range): BP systolic 114–132; BP diastolic 53–72; PULSE 84–95; RESP 16–18; TEMP 36.4–37.3; O2SAT 90–99
[2021-12-08] MEDS: ipratropium-albuterol 3 mL Neb INHALATION ×4 (03:48→20:01)
[2021-12-08] MEDS: famotidine 20 mg/2 mL INJ IVP ×2 (04:10→17:37)
[2021-12-08 04:11] LABS: Basophils % 0.1 %; Hematocrit 40.5 % (42.0-52.0); Hemoglobin 13.7 g/dL (11.7-16.6); Lymphocytes # 0.7 10^3/uL (0.8-4.8); Lymphocytes % 6.1 %; Mean Corpuscular HGB Conc 33.8 g/dL (30.0-36.0); Mean Corpuscular Hemoglobin 31.2 pg (28.0-34.0); Mean Corpuscular Volume 92.3 fl (80-94); Mean Platelet Volume 9.1 fL (7.4-10.4); Monocytes # 0.7 10^3/uL (0.2-0.9); Monocytes % 6.1 %; Neutrophils # 9.41 10^3/uL (1.8-7.7); Neutrophils % 87.1 %; Nucleated Red Blood Cells % 0 %; Platelet Count 476 10^3/cmm (130-400); Red Blood Count 4.39 10^6/uL (4.1-5.3); Red Cell Distribution Width 13.2 % (12.1-15.1); White Blood Count 10.8 10^3/uL (4.0-10.0)
[2021-12-08 04:29] LABS: Alanine Aminotransferase 16 U/L (0-41); Albumin Level 2.7 g/dL (3.5-5.2); Alkaline Phosphatase 158 IU/L (40-130); Aspartate Amino Transferase 20 U/L (0-40); Blood Urea Nitrogen 13 mg/dL (8-23); Calcium 8.3 mg/dL (8.5-10.5); Carbon Dioxide 27 mmol/L (22-29); Chloride 95 mmol/L (98-107); Chol HDL Ratio 6.21 mg/dL (1.0-5.00); Cholesterol 180 mg/dL (0-200); Globulin 3.7 g/dL (1.3-4.6); Glomerular Filtration Rate 164.4 mL/min (90-130); Glucose 209 mg/dL (65-115); HDL Cholesterol 29 mg/dL (60-100); LDL Cholesterol Calculated 120 mg/dL (50-129); Magnesium 1.8 mg/dL (1.7-2.3); Osmolality Calculated 282 mOsm/kg (285-295); Phosphorus 3.1 mg/dL (2.5-4.5); Sodium 133 mmol/L (136-145); Total Bilirubin 0.4 mg/dL (0.15-1.2); Total Protein 6.4 g/dL (6.6-8.7); Triglycerides 155 mg/dL (0-150); VLDL Cholestrol Calculation 31 mg/dL (0-30)
[2021-12-08 04:36] LABS: Estmated Average Glucose 163; Hemoglobin A1C 7.3 % (4.0-6.0)
[2021-12-08 04:43] LABS: Anion Gap 15.6 (5-19); Potassium 4.6 mmol/L (3.5-5.1)
[2021-12-08 07:57] LABS: Glucose Point of Care 227 mg/dL (70-110)
[2021-12-08] MEDS: finasteride 5 mg Tablet PO (08:20)
[2021-12-08] MEDS: atorvastatin 40 mg Tablet 20 MG PO (08:20)
[2021-12-08] MEDS: aspirin 81 mg EC Tablet PO (08:21)
[2021-12-08] MEDS: tamsulosin 0.4 mg Capsule PO (08:21)
[2021-12-08] MEDS: azithromycin 250 mg Tablet 500 MG PO (08:21)
[2021-12-08] MEDS: metoprolol succinate ER (24 HR) 25 mg Tablet PO ×2 (08:21→17:36)
[2021-12-08] MEDS: isosorbide dinitrate 20 mg Tablet 5 MG PO ×2 (08:21→17:36)
[2021-12-08] MEDS: benzonatate 100 mg Capsule PO ×3 (08:23→21:29)
[2021-12-08] MEDS: amlodipine 10 mg Tablet PO (08:23)
[2021-12-08] MEDS: fluoxetine 20 mg Capsule PO ×2 (08:23→17:36)
[2021-12-08] MEDS: apixaban 5 mg Tablet PO ×2 (08:23→17:36)
[2021-12-08] MEDS: levETIRAcetam 500 mg Tablet PO ×2 (08:23→17:36)
[2021-12-08] MEDS: insulin lispro 100 unit/1 mL SUBCUT ×4 (08:23→21:29)
[2021-12-08] MEDS: ferrous gluconate 324 mg Tablet PO ×2 (08:23→17:36)
[2021-12-08] MEDS: budesonide 0.5 mg/2 mL Neb INHALATION ×2 (08:59→20:01)
[2021-12-08] MEDS: cefTRIAXone 1,000 MG in sodium chloride 0.9% (plus) 50 ML 100 MG IV (09:16)
[2021-12-08] MEDS: FUROsemide 10 mg/mL SDV 4mL 40 MG IVP (10:22)
[2021-12-08 12:34] LABS: Glucose Point of Care 197 mg/dL (70-110)
--- NOTE | 2021-12-08 13:24 | PM.PN ---
Subjective Subjective: Documents overnight. Denies any nausea, vomiting, headache. Patient states he is feeling slightly better than yesterday. Still on 5 L oxygen supplementation laying comfortably in bed on examination. Hemodynamically stable. Vitals/I&O/Wt Last Vital Signs Temp 98.0 F 12/08/21 11:22 Pulse 90 12/08/21 11:22 Resp 16 12/08/21 11:22 BP 124/68 12/08/21 11:22 Pulse Ox 90 12/08/21 11:22 12/07/21 12/08/21 12/08/21 22:59 06:59 14:59 Intake Total 420 / 720 Output Total 1475 / 1475 375 / 375 Balance -1055 / -755 -375 / -375 Weight last 48 hrs Weight 103.419 kg Weight 105.687 kg Physical Exam Narrative: General: No acute distress, AO x3 HEENT: PERRLA, pupils bilaterally equal and reactive Chest: Bilateral bronchial breath sounds, coarse crackles present on right hemithorax, fine crackles in left lower zone CVS: S1-S2 regular, no murmurs, no tachycardia, no gallops, no rubs Abdomen: Soft, nontender, no organomegaly, bowel sounds present Neuro: No focal deficits, no facial deformity, AO x3, power 5/5 in all limbs Data : 12/08/21 03:30 12/08/21 03:30 Micro: Microbiology 12/07/21 14:30 Gram Stain - Final Sputum - Expectorated Sputum Sputum Culture - Preliminary 12/07/21 14:30 MRSA Culture - Final Nose 12/07/21 11:22 Blood Culture - Preliminary Blood NEGATIVE TO DATE 12/07/21 11:13 Blood Culture - Preliminary Blood NEGATIVE TO DATE 12/07/21 13:15 Legionella Urinary Antigen - Final Urine,Voided 12/07/21 13:15 Bacterial Antigens - Final Urine Kidney A&P Assessment and plan (1) Acute respiratory failure with hypoxemia: Status: Acute (2) Dyspnea on exertion: Status: Acute (3) Pneumonia: Status: Acute (4) Lung mass: Status: Acute (5) COPD (chronic obstructive pulmonary disease): Status: Acute (6) Atrial fibrillation: Status: Acute Qualifiers: Atrial fibrillation type: paroxysmal Qualified Code(s): I48.0 - Paroxysmal atrial fibrillation (7) Diabetes: Status: Acute Qualifiers: Diabetes mellitus type: type 2 Diabetes mellitus fci insulin use: without termite renewal inspector use Diabetes mellitus complication status: without complication Qualified Code(s): E11.9 - Type 2 diabetes mellitus without complications (8) Positive cardiac stress test: Status: Acute (9) Smoking: Status: Acute (10) Hyponatremia: Most likely secondary to hypervolemic hyponatremia though cannot rule out SIADH given possibility of lung malignancy. Urine lites appreciated. Resolving. Repeat 1 dose of IV Lasix today. Continue to monitor daily for now. Status: Acute Plan Hypoxic respiratory failure: CT chest results appreciated. Concerning for diffuse multifocal pneumonia to the right lung. No concerns on CT chest as per the report for possibility of lung mass though could not rule out as per my read. We will confirm again with radiology. D-dimer slightly elevated. Urine Legionella, bacterial antigen, MRSA swab, flu swab, COVID-19 PCR negative. For now continue with treatment for community-acquired pneumonia with azithromycin 500 mg oral daily, ceftriaxone IV 1 g daily. Cannot rule out mucous plug. Aggressive pulmonary toilet with incentive spirometry and chest vest. Mucomyst every 6 hours. For COPD exacerbation: DuoNebs every 6 hour, budesonide twice daily. IV Solu-Medrol 40 mg twice daily for now. Will do a quick taper. Oxygen supplementation keeping saturation over 88%. Will consult pulmonology for possible bronchoscopy. Repeat chest x-ray in a.m. Cannot rule out possible congestive heart failure. Patient has history of positive stress test with CAD. Fluid restriction up to 1500 cc. proBNP slightly elevated. IV Lasix 40 mg once. Strict input output charting, daily weights. Chronic smoker. History of seizures. Atrial fibrillation: Continue with home dose of metoprolol. Eliquis for anticoagulation. History of CAD: Positive stress test within last 6 months. Awaiting early cardiac angiogram. No current chest pain. Echocardiogram results shows an EF 50 to 55%, grade 1 diastolic dysfunction, no regional wall motion abnormality, trace TR. Continue with home dose of aspirin, statin, beta-gracie, Imdur. Hypertension: Goal blood pressure less than 140/90 mmHg. Full code. Cardiac carb consistent diet. Eliquis will suffice for DVT prophylaxis. Famotidine for PUD prophylaxis. Attestations Medical Necessity Statement*: Requires further hospitalization for management of hypoxic respiratory failure secondary to pneumonia while right lung mass versus mucous plug is evaluated. 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
[2021-12-08] MEDS: acetylcysteine 200 mg/mL SDV 4 mL 100 MG INHALATION ×2 (15:08→20:01)
[2021-12-08 16:51] LABS: Glucose Point of Care 175 mg/dL (70-110)
[2021-12-08 20:49] LABS: Glucose Point of Care 261 mg/dL (70-110)
[2021-12-09] VITALS (17 sets, daily range): BP systolic 113–142; BP diastolic 65–80; PULSE 76–90; RESP 16–22; TEMP 36.2–36.7; O2SAT 88–97
[2021-12-09] MEDS: ipratropium-albuterol 3 mL Neb INHALATION ×4 (02:32→20:03)
[2021-12-09] MEDS: acetylcysteine 200 mg/mL SDV 4 mL 100 MG INHALATION ×4 (03:15→20:03)
[2021-12-09] MEDS: famotidine 20 mg/2 mL INJ IVP ×2 (06:35→16:18)
[2021-12-09 07:14] LABS: Glucose Point of Care 173 mg/dL (70-110)
[2021-12-09] MEDS: budesonide 0.5 mg/2 mL Neb INHALATION ×2 (08:38→20:03)
[2021-12-09] MEDS: finasteride 5 mg Tablet PO (10:19)
[2021-12-09] MEDS: tamsulosin 0.4 mg Capsule PO (10:20)
[2021-12-09] MEDS: ferrous gluconate 324 mg Tablet PO ×2 (10:20→16:18)
[2021-12-09] MEDS: levoFLOXacin 500 mg Tablet PO (10:20)
[2021-12-09] MEDS: fluoxetine 20 mg Capsule PO ×2 (10:20→16:18)
[2021-12-09] MEDS: isosorbide dinitrate 20 mg Tablet 5 MG PO ×2 (10:20→16:16)
[2021-12-09] MEDS: azithromycin 250 mg Tablet 500 MG PO ×2 (10:21→10:22)
[2021-12-09] MEDS: atorvastatin 40 mg Tablet 20 MG PO (10:22)
[2021-12-09] MEDS: levETIRAcetam 500 mg Tablet PO ×2 (10:22→16:16)
[2021-12-09] MEDS: benzonatate 100 mg Capsule PO ×3 (10:22→20:38)
[2021-12-09] MEDS: metoprolol succinate ER (24 HR) 25 mg Tablet PO ×2 (10:23→16:18)
[2021-12-09] MEDS: aspirin 81 mg EC Tablet PO (10:23)
[2021-12-09] MEDS: apixaban 5 mg Tablet PO ×2 (10:24→16:19)
[2021-12-09] MEDS: piperacillin-tazobactam 3.375 GM in sodium chloride 0.9% (plus) 50 ML IV ×2 (10:24→16:16)
[2021-12-09] MEDS: amlodipine 10 mg Tablet PO (10:25)
[2021-12-09 11:41] LABS: Basophils % 0.1 %; Hematocrit 44.4 % (42.0-52.0); Hemoglobin 14.5 g/dL (11.7-16.6); Lymphocytes # 0.5 10^3/uL (0.8-4.8); Lymphocytes % 3.1 %; Mean Corpuscular HGB Conc 32.7 g/dL (30.0-36.0); Mean Corpuscular Hemoglobin 30.9 pg (28.0-34.0); Mean Corpuscular Volume 94.5 fl (80-94); Mean Platelet Volume 9.2 fL (7.4-10.4); Monocytes # 0.6 10^3/uL (0.2-0.9); Monocytes % 3.8 %; Neutrophils % 92.6 %; Nucleated Red Blood Cells % 0 %; Platelet Count 545 10^3/cmm (130-400); Red Cell Distribution Width 13.3 % (12.1-15.1)
[2021-12-09 12:05] LABS: Glucose Point of Care 239 mg/dL (70-110)
[2021-12-09 12:08] LABS: Procalcitonin 0.14 ng/mL (0-0.5)
--- NOTE | 2021-12-09 12:27 | PM.PN ---
Subjective Subjective: No acute events overnight. Patient denies any nausea, vomiting, headache. Working well with chest rest and physical therapy. Laying down in bed. Continues 5 to 6 liters oxygen supplementation. Denies any hemoptysis. Discussed in detail with him for need for him to be out of bed and sitting in chair for long as possible. Also discussed the need for possible bronchoscopy to rule out malignancy. Vitals/I&O/Wt Last Vital Signs Temp 97.7 F 12/09/21 11:07 Pulse 83 12/09/21 11:07 Resp 18 12/09/21 11:07 BP 114/65 12/09/21 11:07 Pulse Ox 92 12/09/21 11:07 12/08/21 12/09/21 12/09/21 22:59 06:59 14:59 Intake Total 360 / 530 Output Total 350 / 725 780 / 1505 Balance 10 195 -780 / -975 Weight last 48 hrs Weight 102.682 kg Weight 103.419 kg Physical Exam Narrative: General: No acute distress, AO x3 HEENT: PERRLA, pupils bilaterally equal and reactive Chest: Bilateral bronchial breath sounds, coarse crackles present on right hemithorax, fine crackles in left lower zone CVS: S1-S2 regular, no murmurs, no tachycardia, no gallops, no rubs Abdomen: Soft, nontender, no organomegaly, bowel sounds present Neuro: No focal deficits, no facial deformity, AO x3, power 5/5 in all limbs Data : 12/10/21 04:35 12/10/21 04:35 Micro: Microbiology 12/07/21 14:30 Gram Stain - Final Sputum - Expectorated Sputum Sputum Culture - Final 12/07/21 14:30 MRSA Culture - Final Nose 12/07/21 11:22 Blood Culture - Preliminary Blood NEGATIVE TO DATE 12/07/21 11:13 Blood Culture - Preliminary Blood NEGATIVE TO DATE A&P Assessment and plan (1) Acute respiratory failure with hypoxemia: Status: Acute (2) Dyspnea on exertion: Status: Acute (3) Pneumonia: Status: Acute (4) Lung mass: Status: Acute (5) COPD (chronic obstructive pulmonary disease): Status: Acute (6) Atrial fibrillation: Status: Acute Qualifiers: Atrial fibrillation type: paroxysmal Qualified Code(s): I48.0 - Paroxysmal atrial fibrillation (7) Diabetes: Status: Acute Qualifiers: Diabetes mellitus complication status: without complication Diabetes mellitus detention insulin use: without 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 Urine lites appreciated. Resolving. Repeat 1 dose of IV Lasix today. Continue to monitor daily for now. Status: Acute Plan Hypoxic respiratory failure: CT chest results appreciated. Concerning for diffuse multifocal pneumonia to the right lung. No concerns on CT chest as per the report for possibility of lung mass though could not rule out as per my read. We will confirm again with radiology. D-dimer slightly elevated. Urine Legionella, bacterial antigen, MRSA swab, flu swab, COVID-19 PCR negative. For now continue with treatment for community-acquired pneumonia with azithromycin 500 mg oral daily, ceftriaxone IV 1 g daily. Cannot rule out mucous plug. Aggressive pulmonary toilet with incentive spirometry and chest vest. Mucomyst every 6 hours. For COPD exacerbation: DuoNebs every 6 hour, budesonide twice daily. IV Solu-Medrol 40 mg twice daily for now. Will do a quick taper. Oxygen supplementation keeping saturation over 88%. Will consult pulmonology for possible bronchoscopy. Repeat chest x-ray in a.m. Cannot rule out possible congestive heart failure. Patient has history of positive stress test with CAD. Fluid restriction up to 1500 cc. proBNP slightly elevated. IV Lasix 40 mg once. Strict input output charting, daily weights. Chronic smoker. History of seizures. Atrial fibrillation: Continue with home dose of metoprolol. Eliquis for anticoagulation. History of CAD: Positive stress test within last 6 months. Awaiting early cardiac angiogram. No current chest pain. Echocardiogram results shows an EF 50 to 55%, grade 1 diastolic dysfunction, no regional wall motion abnormality, trace TR. Continue with home dose of aspirin, statin, beta-gracie, Imdur. Hypertension: Goal blood pressure less than 140/90 mmHg. Full code. Cardiac carb consistent diet. Eliquis will suffice for DVT prophylaxis. Famotidine for PUD prophylaxis. Plan for today: Continue with Mucomyst, DuoNebs, budesonide. Continue with Zosyn, Levaquin. Stop vancomycin as MRSA is negative. Stop azithromycin. Will consult pulmonology tomorrow for possible bronchoscopy. For now continue with Eliquis. Wean off oxygen keeping saturation of 88%. Lasix 40 mg once. 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
[2021-12-09 12:30] LABS: Alanine Aminotransferase 149 U/L (0-41); Blood Urea Nitrogen 17 mg/dL (8-23); Chloride 92 mmol/L (98-107); Sodium 130 mmol/L (136-145); Total Bilirubin 0.4 mg/dL (0.15-1.2)
[2021-12-09] MEDS: insulin lispro 100 unit/1 mL SUBCUT ×3 (12:36→21:38)
[2021-12-09 12:54] LABS: Albumin Level 3.1 g/dL (3.5-5.2); Alkaline Phosphatase 190 IU/L (40-130); Glomerular Filtration Rate 164.4 mL/min (90-130); Glucose 264 mg/dL (65-115); Osmolality Calculated 281 mOsm/kg (285-295)
[2021-12-09 13:10] LABS: Anion Gap 16.7 (5-19); Aspartate Amino Transferase 244 U/L (0-40); Calcium 9.5 mg/dL (8.5-10.5); Carbon Dioxide 26 mmol/L (22-29); Globulin 4.2 g/dL (1.3-4.6); Potassium 4.7 mmol/L (3.5-5.1); Total Protein 7.3 g/dL (6.6-8.7)
[2021-12-09 16:57] LABS: Glucose Point of Care 158 mg/dL (70-110)
[2021-12-09 21:21] LABS: Glucose Point of Care 315 mg/dL (70-110)
[2021-12-10] VITALS (16 sets, daily range): BP systolic 115–150; BP diastolic 54–75; PULSE 79–95; RESP 17–22; TEMP 36.5–37.1; O2SAT 86–96
[2021-12-10] MEDS: piperacillin-tazobactam 3.375 GM in sodium chloride 0.9% (plus) 50 ML IV ×3 (00:38→17:50)
[2021-12-10] MEDS: acetylcysteine 200 mg/mL SDV 4 mL 100 MG INHALATION ×4 (02:01→20:51)
[2021-12-10] MEDS: ipratropium-albuterol 3 mL Neb INHALATION ×4 (02:01→20:51)
[2021-12-10 04:57] LABS: Basophils % 0.1 %; Hematocrit 40.1 % (42.0-52.0); Hemoglobin 13.1 g/dL (11.7-16.6); Lymphocytes # 1.1 10^3/uL (0.8-4.8); Lymphocytes % 8.2 %; Mean Corpuscular HGB Conc 32.7 g/dL (30.0-36.0); Mean Corpuscular Hemoglobin 30.9 pg (28.0-34.0); Mean Corpuscular Volume 94.6 fl (80-94); Monocytes # 1.2 10^3/uL (0.2-0.9); Monocytes % 8.5 %; Neutrophils # 11.35 10^3/uL (1.8-7.7); Neutrophils % 82.7 %; Nucleated Red Blood Cells % 0 %; Platelet Count 458 10^3/cmm (130-400); Red Blood Count 4.24 10^6/uL (4.1-5.3); Red Cell Distribution Width 13.2 % (12.1-15.1); White Blood Count 13.7 10^3/uL (4.0-10.0)
[2021-12-10] MEDS: famotidine 20 mg/2 mL INJ IVP (05:10)
[2021-12-10] MEDS: levoFLOXacin 500 mg Tablet PO (05:10)
[2021-12-10 05:13] LABS: Alanine Aminotransferase 190 U/L (0-41); Albumin Level 2.9 g/dL (3.5-5.2); Alkaline Phosphatase 169 IU/L (40-130); Anion Gap 13.5 (5-19); Aspartate Amino Transferase 258 U/L (0-40); Blood Urea Nitrogen 17 mg/dL (8-23); Calcium 9.2 mg/dL (8.5-10.5); Carbon Dioxide 28 mmol/L (22-29); Chloride 96 mmol/L (98-107); Globulin 3.8 g/dL (1.3-4.6); Glomerular Filtration Rate 164.4 mL/min (90-130); Glucose 216 mg/dL (65-115); Osmolality Calculated 284 mOsm/kg (285-295); Potassium 4.5 mmol/L (3.5-5.1); Sodium 133 mmol/L (136-145); Total Bilirubin 0.4 mg/dL (0.15-1.2); Total Protein 6.7 g/dL (6.6-8.7)
--- NOTE | 2021-12-10 06:00 | XR_ITS ---
WS: [id number] Exam: XR chest 1V portable [id number] Date/Time of Exam: 12/10/2021 5:41 AM Reason For Exam: pna Comparison 12/07/2021. Large masslike density at the right hilar region suspicious for malignancy. There are interstitial in filtrates seen throughout the right lung slightly improved. Postobstructive pneumonia might be a cons ideration. The left lung is clear. No pneumothorax or pleural effusion. Normal heart size. Small beatriz shawna pack seen along the left pulmonary hilum. Bony structures are intact. XR/XR chest 1V portable [id number] IMPRESSION: 1. Large masslike right hilar density suspicious for malignancy. 2. Diffuse interstitial infiltrates throughout the right lung that may represen t postobstructive pneumonitis. This is slightly improved since prior study.
[2021-12-10 06:52] LABS: Glucose Point of Care 199 mg/dL (70-110)
[2021-12-10] MEDS: budesonide 0.5 mg/2 mL Neb INHALATION ×2 (08:33→20:51)
[2021-12-10] MEDS: insulin lispro 100 unit/1 mL SUBCUT ×4 (08:45→21:38)
[2021-12-10] MEDS: ferrous gluconate 324 mg Tablet PO ×2 (08:50→17:48)
[2021-12-10] MEDS: apixaban 5 mg Tablet PO ×2 (08:51→17:50)
[2021-12-10] MEDS: amlodipine 10 mg Tablet PO (08:51)
[2021-12-10] MEDS: aspirin 81 mg EC Tablet PO (08:52)
[2021-12-10] MEDS: finasteride 5 mg Tablet PO (08:52)
[2021-12-10] MEDS: atorvastatin 40 mg Tablet 20 MG PO (08:52)
[2021-12-10] MEDS: benzonatate 100 mg Capsule PO ×3 (08:52→20:23)
[2021-12-10] MEDS: levETIRAcetam 500 mg Tablet PO ×2 (08:53→17:50)
[2021-12-10] MEDS: fluoxetine 20 mg Capsule PO ×2 (08:53→17:50)
[2021-12-10] MEDS: isosorbide dinitrate 20 mg Tablet 5 MG PO ×2 (08:53→17:48)
[2021-12-10] MEDS: metoprolol succinate ER (24 HR) 25 mg Tablet PO ×2 (08:54→17:48)
[2021-12-10] MEDS: tamsulosin 0.4 mg Capsule PO (08:54)
--- NOTE | 2021-12-10 11:26 | PC.SOCIAL ---
IMM update IMM updated with patient. Verbalized an understanding. Copy Pg 2 provided. Initialled, dated, timed, and placed in chart.
[2021-12-10 11:35] LABS: Glucose Point of Care 233 mg/dL (70-110)
--- NOTE | 2021-12-10 13:52 | P.PN_ITS ---
Subjective Subjective: No acute events overnight. Patient remains on 4 to 5 L oxygen supplementation. Could not tolerate BiPAP yesterday. Denies any nausea, vomiting, headache. Seen sitting in chair today. Vitals/I&O/Wt Last Vital Signs Temp 98.7 F 12/10/21 11:11 Pulse 86 12/10/21 11:11 Resp 17 12/10/21 11:11 BP 130/69 12/10/21 11:11 Pulse Ox 90 12/10/21 11:11 12/09/21 12/10/21 12/10/21 22:59 06:59 14:59 Intake Total 50 / 100 290 / 390 960 / 960 Output Total 400 / 900 940 / 1840 500 / 500 Balance -350 / -800 -650 / -1450 460 / 460 Weight last 48 hrs Weight 103.079 kg Weight 102.682 kg Physical Exam Narrative: General: No acute distress, AO x3 HEENT: PERRLA, pupils bilaterally equal and reactive Chest: Bilateral bronchial breath sounds, coarse crackles present on right hemithorax, fine crackles in left lower zone CVS: S1-S2 regular, no murmurs, no tachycardia, no gallops, no rubs Abdomen: Soft, nontender, no organomegaly, bowel sounds present Neuro: No focal deficits, no facial deformity, AO x3, power 5/5 in all limbs Data : 12/10/21 04:35 12/10/21 04:35 Micro: Microbiology 12/07/21 14:30 Gram Stain - Final Sputum - Expectorated Sputum Sputum Culture - Final A&P Assessment and plan (1) Acute respiratory failure with hypoxemia: Status: Acute (2) Dyspnea on exertion: Status: Acute (3) Pneumonia: Status: Acute (4) Lung mass: Status: Acute (5) COPD (chronic obstructive pulmonary disease): Status: Acute (6) Atrial fibrillation: Status: Acute Qualifiers: Atrial fibrillation type: paroxysmal Qualified Code(s): I48.0 - Paroxysmal atrial fibrillation (7) Diabetes: Status: Acute Qualifiers: Diabetes mellitus type: type 2 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 Urine lites appreciated. Resolving. Repeat 1 dose of IV Lasix today. Continue to monitor daily for now. Status: Acute Plan Hypoxic respiratory failure: CT chest results appreciated. Concerning for diffuse multifocal pneumonia to the right lung. No concerns on CT chest as per the report for possibility of lung mass though could not rule out as per my read. We will confirm again with radiology. D-dimer slightly elevated. Urine Legionella, bacterial antigen, MRSA swab, flu swab, COVID-19 PCR negative. High susceptibility of postobstructive pneumonia. Continue with Levaquin, Zosyn. Chest vest, incentive spirometry. Mucomyst every 6 hour, desonide twice daily, DuoNebs every 6 hour. Wean off Solu-Medrol to 40 mg daily for now. Oxygen supplementation keeping saturation over 88%. Discussed in detail with pulmonology. Patient would most likely need bronchoscopy but unfortunately cannot do currently because he is on Eliquis. Will need to stop Eliquis for at least 3 days for possible biopsy. High chances of malignancy. Plan to schedule bronchoscopy as an outpatient. Repeat chest x-ray appreciated. Cannot rule out possible congestive heart failure. Patient has history of positive stress test with CAD. Fluid restriction up to 1500 cc. proBNP slightly elevated. Oral 40 mg Lasix. Strict input output charting, daily weights. Chronic smoker. History of seizures. Atrial fibrillation: Continue with home dose of metoprolol. Eliquis for anticoagulation. History of CAD: Positive stress test within last 6 months. Awaiting early cardiac angiogram. No current chest pain. Echocardiogram results shows an EF 50 to 55%, grade 1 diastolic dysfunction, no regional wall motion abnormality, trace TR. Continue with home dose of aspirin, statin, beta-gracie, Imdur. Hypertension: Goal blood pressure less than 140/90 mmHg. Full code. Cardiac carb consistent diet. Eliquis will suffice for DVT prophylaxis. Famotidine for PUD prophylaxis. 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
--- NOTE | 2021-12-10 14:08 | PM.CONSULT ---
Providers/Reason For Consult Consulting Physician/Specialty*: Pulmonary critical care medicine Reason for Consult*: Suspected lung cancer Attending Physician: Yinka Hernandez MD Primary Care Provider: Fox Alston History of Present Illness History of Present Illness Keith Pennington is a 71 year old male who presented to the hospital on December 15 with worsening shortness of breath for 3 weeks. The patient was also complaining of cough, sputum production. The patient has a diagnosis of atrial fibrillation, COPD, active smoker. The patient also recently had a positive stress test and is awaiting cardiac catheterization. As a part of work-up, the patient underwent a chest x-ray which revealed a masslike lesion in the right paratracheal area, there is also infiltrate in the right mid and lower lung zone. This was followed with a CT scan of the chest. The patient had a masslike lesion in the right upper lobe. There are areas where it looks more like consolidation however a mass in the anterior segment of the right upper lobe is very concerning for malignancy. In fact, it disrupts the right upper lobe anterior segmental bronchus. The patient is currently being treated for pneumonia and COPD exacerbation. He has developed acute hypoxic respiratory failure however his oxygen saturation is slowly getting better. The patient also has mild right-sided effusion. The patient also has hyponatremia concerning for SIADH. He has liver enzyme elevations. There was no comment on the liver on the CT chest. The patient was seen and examined. He appears to be comfortable. The patient tells me that he is feeling better than how he did when he came to the hospital. He is currently on broad-spectrum antibiotic. The patient reports weight loss somewhere between 15 to 30 pounds in the past 2 weeks. His Pro-Rodolfo level is normal. Review of Systems Narrative: General: No fevers, chills. Reports significant weight loss. Skin: No rash HEENT: No nasal congestion, rhinitis, sinusitis Neck: There is no neck swelling, mass or swollen glands. Respiratory: Cough, sputum production, exertional shortness of breath Cardiovascular: No active chest pain Gastrointestinal: No abdominal pain, nausea, vomiting Musculoskeletal: No joint pain or swelling, muscle weakness, morning stiffness, numbness or tingling. Neurological: Patient is awake alert and oriented x3, no paralysis, gross motor function is normal. Psychiatric: No anxiety or depression. Medications/Allergies Home Medications Medication Instructions Recorded Confirmed Last Taken Type albuterol sulfate 90 mcg/actuation 2 puff INHALATION Q6H PRN 08/05/19 12/07/21 12/07/21 History aerosol inhaler (ProAir HFA) amlodipine 10 mg tablet 10 mg PO QDAY 08/05/19 12/07/21 12/06/21 History budesonide-formoterol HFA 160 2 puff INHALATION BID 08/05/19 12/07/21 12/07/21 History mcg-4.5 mcg/actuation aerosol inhaler (Symbicort) fluticasone furoate 200 1 inh INHALATION Q24H 08/05/19 12/07/21 12/07/21 History mcg-vilanterol 25 mcg/dose inhalation powder (Breo Ellipta) fluticasone propionate 50 1 spray INTRANASAL BID 08/05/19 12/07/21 12/07/21 History mcg/actuation nasal spray,suspension ibuprofen 800 mg tablet 800 mg PO Q8H 08/05/19 12/07/21 12/06/21 History metformin 500 mg tablet 500 mg PO BID 08/05/19 12/07/21 12/07/21 History tiotropium bromide 18 mcg capsule 1 cap INHALATION QDAY 08/05/19 12/07/21 12/07/21 History with inhalation device (Spiriva with HandiHaler) tizanidine 4 mg tablet 4 mg PO Q8H PRN 08/05/19 12/07/21 Unknown History nitroglycerin 2.5 mg 2.5 mg PO DAILY cap 02/07/20 12/07/21 12/06/21 History capsule,extended release fluoxetine 20 mg capsule (Prozac) 20 mg PO BID cap 03/07/20 12/07/21 12/07/21 History omeprazole 20 mg capsule,delayed 20 mg PO BID cap 03/07/20 12/07/21 12/07/21 History release simvastatin 20 mg tablet 40 mg PO QDAY tab 03/07/20 12/07/21 12/06/21 History finasteride 5 mg tablet 5 mg PO DAILY 03/07/21 12/07/21 12/06/21 History levetiracetam 500 mg tablet 500 mg PO BID 90 Days #180 tab 03/28/21 12/07/21 12/07/21 Rx (Lexy) metoprolol succinate 25 mg 25 mg PO BID #180 tab 05/04/21 12/07/21 12/07/21 Rx tablet,extended release 24 hr aspirin 81 mg tablet,delayed 81 mg PO QDAY #90 tab 06/08/21 12/07/21 12/07/21 Rx release (Adult Low Dose Aspirin) tamsulosin 0.4 mg capsule 0.4 mg PO DAILY #90 cap 06/27/21 12/07/21 12/07/21 Rx furosemide 20 mg tablet 20 mg PO QAM tab 08/03/21 12/07/21 12/06/21 History semaglutide 3 mg tablet (Rybelsus) 3 mg PO DAILY 08/03/21 12/07/21 12/07/21 History apixaban 5 mg tablet (Eliquis) 5 mg PO BID #180 tab 10/12/21 12/07/21 12/07/21 Rx isosorbide dinitrate 5 mg tablet 5 mg PO BID 12/07/21 12/07/21 12/07/21 History promethazine-DM 6.25 mg-15 mg/5 mL 5 ml PO Q6H PRN 12/07/21 12/07/21 12/07/21 History oral syrup Allergies Allergy/AdvReac Type Severity Reaction Status Date / Time No Known Allergies Allergy Verified 12/07/21 12:37 Current Medications Generic Name Dose Route Start Last Admin Trade Name Freq PRN Reason Stop Dose Admin Acetylcysteine 100 mg 12/09/21 09:00 12/10/21 08:33 Acetylcysteine 200 Mg/Ml Sdv 4 Ml INHALATION 100 mg Q6H.RESPIRATORY CATHI Administration Albuterol/Ipratropium 3 ml 12/07/21 15:00 12/10/21 08:33 Ipratropium-Albuterol 3 Ml Neb INHALATION 3 ml Q6H.RESPIRATORY CATHI Administration Amlodipine Besylate 10 mg 12/08/21 09:00 12/10/21 08:51 Amlodipine 10 Mg Tablet PO 10 mg DAILY CATHI Administration Apixaban 5 mg 12/07/21 18:00 12/10/21 08:51 Apixaban 5 Mg Tablet PO 5 mg BID CATHI Administration Aspirin 81 mg 12/08/21 09:00 12/10/21 08:52 Aspirin 81 Mg Ec Tablet PO 81 mg DAILY CATHI Administration Atorvastatin Calcium 20 mg 12/08/21 09:00 12/10/21 08:52 Atorvastatin 40 Mg Tablet PO 20 mg DAILY CATHI Administration Benzonatate 100 mg 12/07/21 15:00 12/10/21 08:52 Benzonatate 100 Mg Capsule PO 100 mg TID CATHI Administration Budesonide 0.5 mg 12/07/21 18:00 12/10/21 08:33 Budesonide 0.5 Mg/2 Ml Neb INHALATION 0.5 mg BID CATHI Administration Ferrous Gluconate 324 mg 12/07/21 18:00 12/10/21 08:50 Ferrous Gluconate 324 Mg Tablet PO 324 mg BIDWM CATHI Administration Finasteride 5 mg 12/08/21 09:00 12/10/21 08:52 Finasteride 5 Mg Tablet PO 5 mg DAILY CATHI Administration Fluoxetine HCl 20 mg 12/07/21 18:00 12/10/21 08:53 Fluoxetine 20 Mg Capsule PO 20 mg BID CATHI Administration Piperacillin Sod/Tazobactam 50 mls @ 12.5 mls/hr 12/09/21 09:00 12/10/21 08:59 Sod 3.375 gm/ Sodium Chloride IV 12.5 mls/hr Q8H [facility] Administration Protocol Insulin Human Lispro 0 unit 12/07/21 18:00 12/10/21 12:24 Insulin Lispro 100 Unit/1 Ml SUBCUT 6 unit WM&BEDTIME [facility] Administration Protocol Isosorbide Dinitrate 5 mg 12/07/21 18:00 12/10/21 08:53 Isosorbide Dinitrate 20 Mg Tablet PO 5 mg BID CATHI Administration Levetiracetam 500 mg 12/07/21 18:00 12/10/21 08:53 Levetiracetam 500 Mg Tablet PO 500 mg BID CATHI Administration Levofloxacin 500 mg 12/09/21 08:30 12/10/21 05:10 Levofloxacin 500 Mg Tablet PO 12/14/21 08:29 500 mg DAILY@0600 [facility] Administration Protocol Metoprolol Succinate 25 mg 12/07/21 18:00 12/10/21 08:54 Metoprolol Succinate Er (24 Hr) 25 Mg Tablet PO 25 mg BID CATHI Administration Nitroglycerin 2.5 mg 12/08/21 09:00 12/10/21 08:54 Nitroglycerin Er 2.5 Mg Capsule PO 2.5 mg DAILY CATHI Administration Tamsulosin HCl 0.4 mg 12/08/21 09:00 12/10/21 08:54 Tamsulosin 0.4 Mg Capsule PO 0.4 mg DAILY CATHI Administration PFSH Acute PFSH: Medical History Asthmatic bronchitis Atrial fibrillation BPH (benign prostatic hyperplasia) BPH w urinary obs/LUTS COPD (chronic obstructive pulmonary disease) Cough syncope Diabetes Facet arthropathy, lumbar Gross hematuria High cholesterol Intervertebral disc disorder with radiculopathy of lumbar region Kidney lesion Kidney lesion Lumbar compression fracture 12/10/2019 Lumbar stenosis with neurogenic claudication Myalgia Positive cardiac stress test Seizure Sinusitis Skin cancer Spinal stenosis, lumbar region with neurogenic claudication Spondylolisthesis of lumbosacral region Syncope and collapse Tobacco abuse Surgical History History of appendectomy History of eye surgery (~01/18/20) Status post placement of implantable loop recorder 12/17/2018 Family History Father , at age 80 CAD (coronary artery disease) Mother , at age 85 CAD (coronary artery disease) Stroke Family/Other CAD (coronary artery disease) Cancer Hyperlipidemia Sister Cancer Social History Alcohol intake: never Household members: significant other and children Marital status: Life Partner Current occupational status: disabled History of recent travel: No Vitals/I&O/Wt Last Vital Signs Temp 98.7 F 12/10/21 11:11 Pulse 86 12/10/21 11:11 Resp 17 12/10/21 11:11 BP 130/69 12/10/21 11:11 Pulse Ox 90 12/10/21 11:11 12/09/21 12/10/21 12/10/21 22:59 06:59 14:59 Intake Total 50 / 100 290 / 390 960 / 960 Output Total 400 / 900 940 / 1840 500 / 500 Balance -350 / -800 -650 / -1450 460 / 460 Weight last 48 hrs Weight 227 lb 4 oz Weight 226 lb 6 oz Physical Exam Narrative: General: Patient is awake alert and oriented, in no distress. Neck: No JVD Respiratory: Auscultation: Reduced breath sound bilaterally, no crackles or wheezing, occasional rhonchi Cardiovascular: Regular rate and rhythm, S1-S2 present, distant heart sound, no murmur, no right ventricular heave, minimal to no peripheral edema. Abdomen: Soft, nontender, mildly distended from obesity, positive bowel sound Musculoskeletal: No obvious joint deformity Skin: No rash Neuro: Mental status is normal, no gross cranial nerve deficit, normal gross motor function Data : 12/10/21 04:35 12/10/21 04:35 Micro: Microbiology 12/07/21 14:30 Gram Stain - Final Sputum - Expectorated Sputum Sputum Culture - Final Other data: I have reviewed the patient's laboratory microbiologic and rheologic data. Please see the HPI. A&P Assessment and plan (1) Lung mass: This is a 71-year-old gentleman who was admitted to the hospital with acute hypoxic respiratory failure. The patient has an extensive history of smoking. He has emphysematous changes on CT scan of the chest. He also has evidence of infiltrate involving right middle, right lower lobes. The patient also has infiltrate in the right upper lobe however this is more passenger representative of masslike lesion rather than actual consolidation. The mass in fact occludes the anterior segmental right upper lobe bronchus completely. He also gives history of weight loss approximately 15 to 30 pounds in the past 2 months. I have very strong suspicion for this right upper lobe lesion to be malignant. The patient needs bronchoscopic evaluation. However, he is currently on Eliquis which needs to be held for at least 3 days before doing transbronchial biopsies and fine-needle aspiration. I would tentatively plan on doing the procedure next Friday on the . However, the patient also had a recent stress test that was suggestive of myocardial ischemia and is in the process of undergoing cardiac catheterization. However, if the patient does not of getting stents at this time, he would not be a candidate for any procedure for approximately 3 months. Given the possibility of this lesion being malignant, I would like to proceed with biopsy as soon as possible so that the patient can get his cardiac evaluation done. Status: Acute (2) COPD (chronic obstructive pulmonary disease): The patient has evidence of emphysematous changes and carries a diagnosis of COPD. I do not have any pulmonary function test. This will need to be done as outpatient in the future. Status: Acute (3) Acute and chronic respiratory failure with hypoxia: The patient is currently using 4 to 5 L of oxygen. He has diffuse infiltrate not only in the upper lobe on the right side but also the middle and lower lobes. This is going to take some time. However, if the patient stable hemodynamically, he can possibly be discharged home to get the procedure done as an outpatient. Status: Acute (4) Pneumonia: The patient is currently covered with broad-spectrum antibiotics. He is also on steroid for COPD exacerbation. Status: Acute (5) Atrial fibrillation: The patient is on Eliquis for A. fib. This will need to be held for 3 days prior to his procedure. I will coordinate his care as an outpatient. Status: Acute Qualifiers: Atrial fibrillation type: paroxysmal Qualified Code(s): I48.0 - Paroxysmal atrial fibrillation Coding Level of Care Code Acute Materials Director for [facility] Diagnoses Lung mass R91.8 COPD (chronic obstructive pulmonary disease) J44.9 Acute and chronic respiratory failure with hypoxia J96.21 Pneumonia J18.9 Atrial fibrillation I48.0 Atrial fibrillation type: paroxysmal
[2021-12-10] MEDS: FUROsemide 40 mg Tablet PO (15:20)
[2021-12-10 16:44] LABS: Glucose Point of Care 209 mg/dL (70-110)
[2021-12-10] MEDS: famotidine 20 mg Tablet PO (17:50)
--- NOTE | 2021-12-10 20:59 | PC.RESP ---
pt stated that he doesn't want to do the chest vest and will do it in the morning, refused cpap as he said when it was attempted before he couldn't tolerate it and it made his oxygen drop, pt said he wants to be allowed to sleep at night and does not want to be woke up for breathing tx and will call if he needs one.
[2021-12-10 21:04] LABS: Glucose Point of Care 166 mg/dL (70-110)
[2021-12-11] VITALS (9 sets, daily range): BP systolic 125–129; BP diastolic 68–72; PULSE 84–93; RESP 15–22; TEMP 36.7–36.8; O2SAT 87–93
[2021-12-11] MEDS: piperacillin-tazobactam 3.375 GM in sodium chloride 0.9% (plus) 50 ML IV ×2 (00:37→07:58)
[2021-12-11] MEDS: ipratropium-albuterol 3 mL Neb INHALATION ×2 (03:56→08:29)
[2021-12-11] MEDS: acetylcysteine 200 mg/mL SDV 4 mL 100 MG INHALATION ×2 (03:56→08:30)
[2021-12-11] MEDS: levoFLOXacin 500 mg Tablet PO (04:52)
[2021-12-11 04:59] LABS: Basophils % 0.1 %; Eosinophils % 0.1 %; Hematocrit 43.1 % (42.0-52.0); Hemoglobin 14.1 g/dL (11.7-16.6); Lymphocytes # 1.6 10^3/uL (0.8-4.8); Mean Corpuscular HGB Conc 32.7 g/dL (30.0-36.0); Mean Corpuscular Hemoglobin 31.1 pg (28.0-34.0); Mean Corpuscular Volume 95.1 fl (80-94); Mean Platelet Volume 9.1 fL (7.4-10.4); Monocytes # 1.3 10^3/uL (0.2-0.9); Monocytes % 9.4 %; Neutrophils % 77.7 %; Nucleated Red Blood Cells % 0 %; Platelet Count 480 10^3/cmm (130-400); Red Blood Count 4.53 10^6/uL (4.1-5.3); Red Cell Distribution Width 13.3 % (12.1-15.1); White Blood Count 13.5 10^3/uL (4.0-10.0)
[2021-12-11 05:19] LABS: Alanine Aminotransferase 258 U/L (0-41); Albumin Level 2.9 g/dL (3.5-5.2); Alkaline Phosphatase 166 IU/L (40-130); Blood Urea Nitrogen 14 mg/dL (8-23); Calcium 9.2 mg/dL (8.5-10.5); Carbon Dioxide 29 mmol/L (22-29); Chloride 92 mmol/L (98-107); Globulin 3.5 g/dL (1.3-4.6); Glomerular Filtration Rate 164.4 mL/min (90-130); Glucose 178 mg/dL (65-115); Osmolality Calculated 279 mOsm/kg (285-295); Sodium 132 mmol/L (136-145); Total Bilirubin 0.5 mg/dL (0.15-1.2); Total Protein 6.4 g/dL (6.6-8.7)
[2021-12-11 05:46] LABS: Anion Gap 15.3 (5-19); Aspartate Amino Transferase 238 U/L (0-40); Potassium 4.3 mmol/L (3.5-5.1)
[2021-12-11 06:30] LABS: Glucose Point of Care 192 mg/dL (70-110)
[2021-12-11] MEDS: tamsulosin 0.4 mg Capsule PO (07:49)
[2021-12-11] MEDS: benzonatate 100 mg Capsule PO (07:49)
[2021-12-11] MEDS: FUROsemide 40 mg Tablet PO (07:49)
[2021-12-11] MEDS: ferrous gluconate 324 mg Tablet PO (07:49)
[2021-12-11] MEDS: levETIRAcetam 500 mg Tablet PO (07:49)
[2021-12-11] MEDS: isosorbide dinitrate 20 mg Tablet 5 MG PO (07:50)
[2021-12-11] MEDS: famotidine 20 mg Tablet PO (07:50)
[2021-12-11] MEDS: atorvastatin 40 mg Tablet 20 MG PO (07:51)
[2021-12-11] MEDS: amlodipine 10 mg Tablet PO (07:51)
[2021-12-11] MEDS: apixaban 5 mg Tablet PO (07:52)
[2021-12-11] MEDS: fluoxetine 20 mg Capsule PO (07:53)
[2021-12-11] MEDS: aspirin 81 mg EC Tablet PO (07:53)
[2021-12-11] MEDS: metoprolol succinate ER (24 HR) 25 mg Tablet PO (07:54)
[2021-12-11] MEDS: finasteride 5 mg Tablet PO (07:57)
[2021-12-11] MEDS: insulin lispro 100 unit/1 mL SUBCUT ×2 (07:57→12:57)
[2021-12-11] MEDS: budesonide 0.5 mg/2 mL Neb INHALATION (08:29)
[2021-12-11 11:07] LABS: Glucose Point of Care 258 mg/dL (70-110)
--- NOTE | 2021-12-11 11:11 | P.DS_ITS ---
Discharge Providers Date of Admission: 12/07/21 12:03 Date of Discharge: December 11, 2021 Attending Provider at Admission: Yinka Hernandez MD Attending Provider at Discharge: Yinka Hernandez MD Consults: Pulmonology: Dr. Mirza Primary Care Provider: Fox Alston Diagnoses at Discharge Discharge Diagnosis (1) Lung mass: Status: Acute (2) COPD (chronic obstructive pulmonary disease): Status: Acute (3) Acute and chronic respiratory failure with hypoxia: Status: Acute (4) Pneumonia: Status: Acute (5) Atrial fibrillation: Status: Acute Qualifiers: Atrial fibrillation type: paroxysmal Qualified Code(s): I48.0 - Paroxysmal atrial fibrillation Reason for Visit Reason for Visit: Low O2 Hospital Course Hospital Course Keith Pennington is a 71 year old male with past medical history of atrial fibrillation, chronic smoker, COPD, recurrent episode of syncope with implantable loop recorder, CAD, recent positive stress test awaiting cardiac catheterization.? He presents to the ER today with worsening shortness of breath over the last 3 weeks along with cough and expectoration which he attributes to a possible congestive heart failure? Denies any hemoptysis.? States shortness of breath gets worse on walking around and on talking.? Denies any orthopnea and PND.? States usually is not able to sleep at night because of prostate issues but never woken up because of difficulty in breathing.? States he has lost around 15 pounds over the last 2 weeks.? Has noticed some swelling in his legs.? Complaining of runny nose and postnasal drip.? Denies any sick contact or recent travels. Patient was admitted to the hospital further evaluation and management of acute hypoxic respiratory failure. On admission chest imaging was concerning for right-sided upper lobe masslike lesion along with possible postobstructive pneumonia. It was confirmed by CT chest. Viral etiology was ruled out by negative influenza and COVID-19 PCR. MRSA swab was negative. Patient was started on aggressive pulmonary toilet with chest vest on incentive spirometry. He was started on broad-spectrum antibiotics, occasional diuresis as per fluid balance and inhalation treatment. Patient remained on 4 to 5 L oxygen supplementation which is new to him. Admission patient was also found to be in hyponatremia. 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 He was started on fluid restriction and IV diuresis to which he responded well. Sodium level has been stable since last 2 to 3 days. For further evaluation of masslike lesion and further treatment patient would need bronchoscopy for which pulmonology was consulted. As patient has been taking Eliquis for atrial fibrillation bronchoscopy could not be done as of now. Patient is scheduled for bronchoscopy on 12/18. He is advised to stop his Eliquis on Friday which will be on 12/15. He has been discharged in hemodynamically stable condition on oral Augmentin and Levaquin for next 7 days, oral Lasix 40 mg daily, with advised to stop Eliquis on 12/15 and to follow-up with pulmonology as per recommendations. He is advised in detail for smoking cessation. He is advised to continue doing incentive spirometry and flutter valve at home. Physical Exam Narrative: General: No acute distress, AO x3 HEENT: PERRLA, pupils bilaterally equal and reactive Chest: Bilateral bronchial breath sounds, coarse crackles present on right hemithorax, fine crackles in left lower zone CVS: S1-S2 regular, no murmurs, no tachycardia, no gallops, no rubs Abdomen: Soft, nontender, no organomegaly, bowel sounds present Neuro: No focal deficits, no facial deformity, AO x3, power 5/5 in all limbs Discharge Data Studies Completed and Pending Completed Studies During Hospitalization Category Date Time Status CT chest wo con [id number] Urgent Cat Scan 12/07/21 11:26 Completed XR chest 1V portable [id number] Routine Exams 12/10/21 06:00 Completed XR chest 1V portable [id number] Stat Exams 12/07/21 10:50 Completed CV. echo complete* [id number] Routine Ultrasound 12/07/21 13:09 Completed Pending at discharge Category Date Time Status Blood Culture Stat Lab 12/07/21 11:22 Results Radiology Impressions Chest CT 12/07/21 11:26 IMPRESSION: Multifocal pneumonia throughout the right lung with small volume parapneumonic effusion. Chest X-Ray 12/10/21 06:00 IMPRESSION: 1. Large masslike right hilar density suspicious for malignancy. 2. Diffuse interstitial infiltrates throughout the right lung that may represent postobstructive pneumonitis. This is slightly improved since prior study. Echocardiogram: ?CONCLUSIONS ?LV systolic function is borderline normal with EF of 50-55%. ?Grade 1 diastolic dysfunction ?Mitral valve is thickened and aortic valve is thickened ?Trace tricuspid regurgitaion ?No comparison studies are available ?Carlton Wilson MD ?(Electronically Signed) ?Final Date:? ? ? 08 Dec 2021 10:01 Microbiology 12/07/21 14:30 Sputum - Expectorated Sputum Gram Stain - Final 12/07/21 14:30 Sputum - Expectorated Sputum Sputum Culture - Final 12/07/21 14:30 Nose MRSA Culture - Final 12/07/21 11:22 Blood Blood Culture - Preliminary NEGATIVE TO DATE 12/07/21 11:13 Blood Blood Culture - Preliminary NEGATIVE TO DATE 12/07/21 13:15 Urine,Voided Legionella Urinary Antigen - Final 12/07/21 13:15 Urine Kidney Bacterial Antigens - Final Laboratory Results WBC 13.5 10^3/uL (4.0-10.0) H 12/11/21 04:21 RBC 4.53 10^6/uL (4.1-5.3) 12/11/21 04:21 Hgb 14.1 g/dL (11.7-16.6) 12/11/21 04:21 Hct 43.1 % (42.0-52.0) 12/11/21 04:21 MCV 95.1 fl (80-94) H 12/11/21 04:21 MCH 31.1 pg (28.0-34.0) 12/11/21 04:21 MCHC 32.7 g/dL (30.0-36.0) 12/11/21 04:21 RDW 13.3 % (12.1-15.1) 12/11/21 04:21 Plt Count 480 10^3/cmm (130-400) H 12/11/21 04:21 MPV 9.1 fL (7.4-10.4) 12/11/21 04:21 Neut % (Auto) 77.7 % 12/11/21 04:21 Lymph % (Auto) 12.0 % 12/11/21 04:21 [place] % (Auto) 9.4 % 12/11/21 04:21 Eos % (Auto) 0.1 % 12/11/21 04:21 Baso % (Auto) 0.1 % 12/11/21 04:21 Neut # (Auto) 10.50 10^3/uL (1.8-7.7) H 12/11/21 04:21 Lymph # (Auto) 1.6 10^3/uL (0.8-4.8) 12/11/21 04:21 [place] # (Auto) 1.3 10^3/uL (0.2-0.9) H 12/11/21 04:21 Eos # (Auto) 0.0 10^3/uL (0.0-0.8) 12/11/21 04:21 Baso # (Auto) 0.0 10^3/uL (0.0-0.1) 12/11/21 04:21 Nucleated RBC % (auto) 0 % 12/11/21 04:21 Nucleated RBCs # 0.0 /100WBC 12/11/21 04:21 D-Dimer 0.98 ug/mIFEU (0-0.59) H 12/07/21 11:13 Sodium 132 mmol/L (136-145) L 12/11/21 04:21 Potassium 4.3 mmol/L (3.5-5.1) 12/11/21 04:21 Chloride 92 mmol/L (98-107) L 12/11/21 04:21 Carbon Dioxide 29 mmol/L (22-29) 12/11/21 04:21 Anion Gap 15.3 (5-19) 12/11/21 04:21 BUN 14 mg/dL (8-23) 12/11/21 04:21 Creatinine 0.5 mg/dL (0.7-1.2) L 12/11/21 04:21 GFR Calculation 164.4 mL/min (90-130) H 12/11/21 04:21 Glucose 178 mg/dL (65-115) H 12/11/21 04:21 POC Glucose 258 mg/dL (70-110) H 12/11/21 11:04 Estimat Average Glucose 163 12/08/21 03:30 Hemoglobin A1c 7.3 % (4.0-6.0) H 12/08/21 03:30 Calculated Osmolality 279 mOsm/kg (285-295) L 12/11/21 04:21 Calcium 9.2 mg/dL (8.5-10.5) 12/11/21 04:21 Phosphorus 3.1 mg/dL (2.5-4.5) 12/08/21 03:30 Magnesium 1.8 mg/dL (1.7-2.3) 12/08/21 03:30 Iron 20 ug/dL (59-158) L 12/07/21 11:13 TIBC 243 mcg/dl 12/07/21 11:13 % Saturation 8.2 % (20-50) L 12/07/21 11:13 Unsat Iron Binding 223 ug/dL (112-347) 12/07/21 11:13 Total Bilirubin 0.5 mg/dL (0.15-1.2) 12/11/21 04:21 AST 238 U/L (0-40) H 12/11/21 04:21 ALT 258 U/L (0-41) H 12/11/21 04:21 Alkaline Phosphatase 166 IU/L (40-130) H 12/11/21 04:21 Troponin T Baseline 12 ng/L (0-15) 12/07/21 11:13 Troponin T 120 Minute 11.64 ng/L (0-15) 12/07/21 13:20 Delta Troponin T -0.36 ABS# (0-10) L 12/07/21 13:20 Troponin T Hi Sens 6Hr 10.39 ng/L (0-15) 12/07/21 17:15 Troponin T Hi Sens 6Hr Delta Not Reportable 12/07/21 17:15 NT-Pro-B Natriuret Pep 519 pg/mL (0-125) H 12/07/21 11:13 Total Protein 6.4 g/dL (6.6-8.7) L 12/11/21 04:21 Albumin 2.9 g/dL (3.5-5.2) L 12/11/21 04:21 Globulin 3.5 g/dL (1.3-4.6) 12/11/21 04:21 Triglycerides 155 mg/dL (0-150) H 12/08/21 03:30 Cholesterol 180 mg/dL (0-200) 12/08/21 03:30 LDL Cholesterol, Calc 120 mg/dL (50-129) 12/08/21 03:30 Total VLDL Cholesterol 31 mg/dL (0-30) H 12/08/21 03:30 HDL Cholesterol 29 mg/dL (60-100) L 12/08/21 03:30 Cholesterol/HDL Ratio 6.21 mg/dL (1.0-5.00) H 12/08/21 03:30 Procalcitonin 0.14 ng/mL (0-0.5) 12/09/21 11:00 TSH 2.11 uIU/mL (0.27-4.20) 12/07/21 11:13 Urine Color Yellow (Yellow) 12/07/21 13:15 Urine Appearance Clear (CLEAR) 12/07/21 13:15 Urine pH 7 (5-7) 12/07/21 13:15 Ur Specific [place] 1.005 (1.005-1.030) 12/07/21 13:15 Urine Protein Neg (Negative) 12/07/21 13:15 Urine Glucose (UA) Norm (Normal) 12/07/21 13:15 Urine Ketones Negative (Negative) 12/07/21 13:15 Urine Blood Neg (Negative) 12/07/21 13:15 Urine Nitrate Negative (Negative) 12/07/21 13:15 Urine Bilirubin Neg (Negative) 12/07/21 13:15 Urine Urobilinogen Norm mg/dL (Negative) 12/07/21 13:15 Ur Leukocyte Esterase Negative (Negative) 12/07/21 13:15 Ur Random Sodium 33 mmol/L 12/07/21 13:15 Ur Random Potassium 31 mmol/L 12/07/21 13:15 Ur Random Chloride 39 mmol/L 12/07/21 13:15 Nasal Influ A H1 2009 PCR Not detected (NOT DETECT) 12/07/21 14:30 Coronavirus 229E (PCR) Not detected (NOT DETECT) 12/07/21 14:30 Influenza A (H1) PCR Not detected (NOT DETECT) 12/07/21 14:30 Influenza A (H3) PCR Not detected (NOT DETECT) 12/07/21 14:30 Influenza Type A Ag Cancelled 12/07/21 14:30 Influenza Type A (PCR) Not detected (NOT DETECT) 12/07/21 14:30 Influenza Type B Ag Cancelled 12/07/21 14:30 Influenza Type B (PCR) Not detected (NOT DETECT) 12/07/21 14:30 SARS-CoV-2 (PCR) Not detected (NOT DETECT) 12/07/21 14:30 SARS-CoV-2 Ag (Rapid) Negative (Negative) 12/07/21 11:20 Vitals Last Vital Signs Temp 98.2 F 05/24/22 08:00 Pulse 90 12/11/21 08:41 Resp 18 12/11/21 08:34 BP 126/72 12/11/21 08:00 Pulse Ox 87 L 12/11/21 10:36 Discharge Plan Discharge Patient Disposition: Home Condition: Stable Prescriptions: New ferrous gluconate 324 mg (37.5 mg iron) Tablet 324 mg PO BIDWM Qty: 60 0RF prednisone 50 mg tablet 50 mg PO DAILY Qty: 10 0RF Augmentin 500-125 mg tablet 1 tab PO Q8H 7 Days Qty: 21 0RF levofloxacin 500 mg tablet 500 mg PO Q24H 7 Days Qty: 7 0RF Continued amlodipine 10 mg tablet 10 mg PO QDAY 0RF Breo Ellipta 200-25 mcg/dose blister with device 1 inh INHALATION Q24H 0RF fluticasone propionate 50 mcg/actuation spray,suspension 1 spray INTRANASAL BID 0RF ibuprofen 800 mg tablet 800 mg PO Q8H 0RF metformin 500 mg tablet 500 mg PO BID 0RF albuterol sulfate [ProAir HFA] 90 mcg/actuation HFA aerosol inhaler 2 puff INHALATION Q6H PRN (Reason: Shortness Of Breath) 0RF Spiriva with HandiHaler 18 mcg capsule, w/inhalation device 1 cap INHALATION QDAY 0RF Symbicort 160-4.5 mcg/actuation HFA aerosol inhaler 2 puff INHALATION BID 0RF tizanidine 4 mg tablet 4 mg PO Q8H PRN (Reason: Spasms) 0RF fluoxetine [Prozac] 20 mg capsule 20 mg PO BID 0RF simvastatin 20 mg tablet 40 mg PO QDAY 0RF omeprazole 20 mg capsule,delayed release(DR/EC) 20 mg PO BID 0RF nitroglycerin 2.5 mg capsule, extended release 2.5 mg PO DAILY 0RF Rx Instructions: allow nitrate-free interval of approx. 10-12 hrs per 24-hour period levetiracetam [Keppra] 500 mg tablet 500 mg PO BID 90 Days Qty: 180 4RF Rx Instructions: Please give regular Keppra until XR is available. Rybelsus 3 mg tablet 3 mg PO DAILY 0RF finasteride 5 mg tablet 5 mg PO DAILY 0RF metoprolol succinate 25 mg tablet extended release 24 hr 25 mg PO BID Qty: 180 3RF aspirin [Adult Low Dose Aspirin] 81 mg tablet,delayed release (DR/EC) 81 mg PO QDAY Qty: 90 3RF tamsulosin 0.4 mg capsule 0.4 mg PO DAILY Qty: 90 3RF Eliquis 5 mg tablet 5 mg PO BID Qty: 180 3RF promethazine-DM 6.25-15 mg/5 mL Syrup 5 ml PO Q6H PRN (Reason: Cough) 0RF isosorbide dinitrate 5 mg Tablet 5 mg PO BID 0RF Rx Instructions: allow nitrate-free interval of 12-14 hrs per 24-hr period Changed furosemide 20 mg tablet 40 mg PO QAM Qty: 0 0RF Discharge Orders: Discharge Order (Routine); Ordered 12/11/21 Ordered By: Yinka Hernandez Other Ambulatory Orders: DME: Commode (Order) Location: None Selected Ordered By: Yinka Hernandez DME: Oxygen (Order) Location: None Selected Ordered By: Yinka Hernandez DME: Walker (Order) Location: None Selected Ordered By: Yinka Hernandez Referrals: Fox Alston DO [Primary Care Provider] - 2 weeks Discharge Diet: Cardiac Discharge Activity: Resume usual activity and Increase activity as tolerated Patient Instructions: Opioid Safety Discharge Attestations Time Spent in Discharge Care*: greater than 30 min Specific Discharge Activities: educating patient, discussing with pcp/other providers, discussing with top case assembler/social workers/dc planners, documenting/other paperwork and evaluating patient/reviewing data Time Spent in Smoking Cessation: more than 10 minutes Status at Discharge: Cognitive status at discharge: cognitively intact , Behavioral status at discharge: cooperative , Functional status at discharge: uses cane/walker , Overall status at discharge: patient is not back to baseline Quality Metrics Clinical Quality Measures [ No reported AMI, CVA or VTE this stay] Coding Level of Care Code Acute Chg FW DC note Diagnoses Lung mass R91.8 COPD (chronic obstructive pulmonary disease) J44.9 Acute and chronic respiratory failure with hypoxia J96.21 Pneumonia J18.9 Atrial fibrillation I48.0 Atrial fibrillation type: paroxysmal
== END 2021-12-11 14:25 | disposition home or self-care (01) | DRG 189 ==
LOC: ER 12:07 → MEDSURG 12:46
PROVIDERS: Family Medicine; Admitting Provider Student in an Organized Health Care Education/Training Program; Emergency Provider Emergency Medicine; PCP Family Medicine; Visit Provider Student in an Organized Health Care Education/Training Program
DX: J96.01 Acute respiratory failure with hypoxia (principal); J18.9 Pneumonia, unspecified organism; J44.0 Chronic obstructive pulmonary disease with (acute) lower respiratory infection; J44.1 Chronic obstructive pulmonary disease with (acute) exacerbation; N13.8 Other obstructive and reflux uropathy; I50.32 Chronic diastolic (congestive) heart failure; I48.0 Paroxysmal atrial fibrillation; N40.1 Benign prostatic hyperplasia with lower urinary tract symptoms; E11.9 Type 2 diabetes mellitus without complications; M48.062 Spinal stenosis, lumbar region with neurogenic claudication; M54.16 Radiculopathy, lumbar region; Z85.828 Personal history of other malignant neoplasm of skin; M43.17 Spondylolisthesis, lumbosacral region; R91.8 Other nonspecific abnormal finding of lung field; F17.200 Nicotine dependence, unspecified, uncomplicated; I25.10 Atherosclerotic heart disease of native coronary artery without angina pectoris; R94.39 Abnormal result of other cardiovascular function study; Z79.01 Long term (current) use of anticoagulants; Z79.82 Long term (current) use of aspirin; Z79.51 Long term (current) use of inhaled steroids; Z79.84 Long term (current) use of oral hypoglycemic drugs
CPT/HCPCS: 36415; 36416; 71045; 71250; 80053; 80061; 81003; 82436; 82962; 83036; 83540; 83550; 83735; 83880; 84100; 84133; 84145; 84300; 84443; 84484; 85025; 85378; 86403; 87040; 87070; 87205; 87426; 87449; 87631; 87635; 87641; 93005; 93306; 94640; 94660; 94664; 94669; 96372; J0456; J0696; J1815; J1940; J2543; J2920; J2930; J3490; J7050; J7608; J7626; Q0144

== ENCOUNTER 2021-12-18 05:32 | Day surgery (SDC) | payer MEDICARE, MEDICAID, SELFPAY ==
[2021-12-14 09:59] VITALS: BMI 31.2
[2021-12-18] VITALS (7 sets, daily range): BP systolic 92–145; BP diastolic 46–83; PULSE 93–102; RESP 18–20; TEMP 36.4–37.3; O2SAT 90–94
[2021-12-18] MEDS: sodium chloride 0.9% 1,000 ML 30 ML IV (06:18)
--- NOTE | 2021-12-18 06:52 | ANES.PREANE2 ---
Documented by User: Meliton Oropeza CRNA 12/18/21 06:57 Pre-Anesthetic Assessment Height/Weight: Height 1.78 m Weight 98.883 kg Temp Pulse Resp BP Pulse Ox 99.1 F 95 20 H 145/83 94 12/18/21 06:10 12/18/21 06:10 12/18/21 06:10 12/18/21 06:10 12/18/21 06:10 Preop Diagnosis: lung mass Operation Date: 12/18/21 07:00 Proposed Procedures p Bronchoscopy, Transbronch [id number](Not Applicable) - You Mirza MD s Ebus(Not Applicable) - You Mirza MD Familial anesthetic complications: none Was Beta Amparo taken within 24 hours: Yes Was Clonidine taken within 24 hours: N/A Last intake: Intake Last Liquid Date 12/17/21 Last Liquid Time 18:30 Last Solid Date 12/17/21 Last Solid Time 18:30 Social Tobacco and No alcohol 3-4 cigs per day pack(s) per day Exam alert, oriented x 3, clear to auscultation bilaterally and regular rate & rhythm Airway Submandibular: within normal limits Cervical ROM: within normal limits Mallampati: Class II Dentition: false Pulmonary Asthma, Chronic Obstructive Pulmonary Disease, Cough, Exertional Dyspnea and Shortness of Breath CV/HEM Atrial Fibrillation, Congestive Heart Failure, Hypertension and Myocardial Infarction None reported Hepatic None reported GI Gastroesophageal Reflux Disease Metabolic Diabetes Mellitus and Hyperlipidemia Musc/skel Lower Back Pain and Osteoarthritis/DJD Neuropsych None reported Anesthetic Plan ASA status: 3 Anesthesia: General Risk of > 500 ml blood loss (7ml/kg in children): No Medications/Allergies Home Medications Medication Instructions Recorded Confirmed Last Taken Type amlodipine 10 mg tablet 10 mg PO QDAY 08/05/19 12/18/21 12/17/21 History ibuprofen 800 mg tablet 800 mg PO Q8H 08/05/19 12/18/21 12/17/21 History metformin 500 mg tablet 500 mg PO BID 08/05/19 12/18/21 12/17/21 History tizanidine 4 mg tablet 4 mg PO Q8H PRN 08/05/19 12/18/21 12/17/21 History nitroglycerin 2.5 mg 2.5 mg PO DAILY cap 02/07/20 12/18/21 12/17/21 History capsule,extended release fluoxetine 20 mg capsule (Prozac) 20 mg PO DAILY cap 03/07/20 12/18/21 12/17/21 History omeprazole 20 mg capsule,delayed 20 mg PO BID cap 03/07/20 12/18/21 12/17/21 History release simvastatin 20 mg tablet 40 mg PO QDAY tab 03/07/20 12/18/21 12/17/21 History finasteride 5 mg tablet 5 mg PO DAILY 03/07/21 12/18/21 12/17/21 History levetiracetam 500 mg tablet 500 mg PO BID 90 Days #180 tab 03/28/21 12/18/21 12/17/21 Rx (Keppra) metoprolol succinate 25 mg 25 mg PO BID #180 tab 05/04/21 12/18/21 12/17/21 Rx tablet,extended release 24 hr tamsulosin 0.4 mg capsule 0.4 mg PO DAILY #90 cap 06/27/21 12/18/21 12/17/21 Rx semaglutide 3 mg tablet (Rybelsus) 3 mg PO DAILY 08/03/21 12/18/21 12/17/21 History apixaban 5 mg tablet (Eliquis) 5 mg PO BID #180 tab 10/12/21 12/18/21 12/11/21 Rx isosorbide dinitrate 5 mg tablet 5 mg PO BID 12/07/21 12/18/21 12/17/21 History promethazine-DM 6.25 mg-15 mg/5 mL 5 ml PO Q6H PRN 12/07/21 12/18/21 12/17/21 History oral syrup ferrous gluconate 324 mg (37.5 mg 324 mg PO BIDWM #60 tab 12/11/21 12/18/21 12/17/21 Rx iron) tablet furosemide 20 mg tablet 40 mg PO QAM #0 tab 12/11/21 12/18/21 12/17/21 Rx prednisone 50 mg tablet 50 mg PO DAILY #10 tab 12/11/21 12/18/21 12/17/21 Rx aspirin 81 mg tablet,delayed 81 mg PO DAILY 12/18/21 12/18/21 12/11/21 History release Allergies Allergy/AdvReac Type Severity Reaction Status Date / Time No Known Allergies Allergy Verified 12/18/21 06:03 Current Medications Generic Name Dose Route Start Last Admin Trade Name Freq PRN Reason Stop Dose Admin Sodium Chloride 1,000 mls @ 30 mls/hr 12/18/21 06:00 12/18/21 06:18 Sodium Chloride 0.9% IV 12/19/21 05:59 30 mls/hr .Q24H CATHI Administration PFSH Anesthesia Medical History Asthmatic bronchitis Atrial fibrillation BPH (benign prostatic hyperplasia) BPH w urinary obs/LUTS COPD (chronic obstructive pulmonary disease) Cough syncope Diabetes Facet arthropathy, lumbar Gross hematuria High cholesterol Intervertebral disc disorder with radiculopathy of lumbar region Kidney lesion Kidney lesion Lumbar compression fracture 12/10/2019 Lumbar stenosis with neurogenic claudication Myalgia Positive cardiac stress test Seizure Sinusitis Skin cancer Spinal stenosis, lumbar region with neurogenic claudication Spondylolisthesis of lumbosacral region Syncope and collapse Tobacco abuse Surgical History History of appendectomy History of eye surgery (~01/18/20) Status post placement of implantable loop recorder 12/17/2018 Family History Father , at age 80 CAD (coronary artery disease) Mother , at age 85 CAD (coronary artery disease) Stroke Family/Other CAD (coronary artery disease) Cancer Hyperlipidemia Sister Cancer Social History Alcohol intake: never Household members: significant other and children Marital status: Life Partner Current occupational status: disabled History of recent travel: No Data Anesthesia Cardiac Studies: Echocardiogram 12/07/21 Sestamibi Stress Test (Cardiology) 03/30/21
--- NOTE | 2021-12-18 06:53 | W.PM.OPSUD ---
Surgery/Procedure H&P Update DATE OF PROCEDURE: December 18, 2021 DATE H&P PERFORMED: 12/10/21 PREOP DIAGNOSIS: Suspected lung cancer PRIMARY INDICATION FOR PROCEDURE: Suspected lung cancer. PLANNED PROCEDURE: Bronchoscopy with inspection of the airway, possible endobronchial biopsies, bronchoalveolar lavage, transbronchial biopsies, Cytobrush, endobronchial sound guided transbronchial needle aspiration of lymph nodes and control of bleeding. Operation Date: 12/18/21 07:00 Proposed Procedures p Bronchoscopy, Transbronch [id number](Not Applicable) - You Mirza MD s Ebus(Not Applicable) - You Mirza MD
[2021-12-18] MEDS: lidocaine 1% INJ 20 mL XX (07:24)
--- NOTE | 2021-12-18 08:16 | PM.OP ---
Operative Report Date of procedure: December 18, 2021 Pre-op diagnosis: Preop Diagnosis lung mass Post-op diagnosis: Same Brief History: This is a 71-year-old gentleman with extensive history of smoking who presented to the hospital in end of November with right upper lobe lung mass suspicious for lung malignancy. In addition the patient also had evidence of pneumonia. The patient is here today for bronchoscopic evaluation. Procedure: Name of the procedure: Bronchoscopy with inspection of the airway, bronchoalveolar lavage, endobronchial biopsies, endobronchial ultrasound-guided transbronchial needle aspiration of lymph nodes and control of bleeding. Indication: Suspected lung cancer Anesthesia: General anesthesia. Local anesthesia: The vocal cords, trachea, david and the right and left mainstem bronchi were anesthetized with 1% lidocaine, 7mL. Description of the procedure: The procedure was explained to the patient and the consent was obtained. The patient was brought to the OR. The patient underwent laryngeal mask airway placement for general anesthesia. Following induction of general anesthesia, the bronchoscope was advanced through the LMA. The vocal cords are normal. The vocal cords were anesthetized with 1% lidocaine, 3 mL lidocaine was used. The bronchoscope was introduced through the vocal cords under direct visualization. The upper and lower trachea appeared to be normal. The trachea was anesthetized with 1% lidocaine. The david was sharp. The david, the right and left mainstem bronchi are anesthetized with 1% lidocaine. In a systematic manner bilateral bronchial tree was then examined. The bronchoscope was advanced into the left mainstem bronchus. The left upper lobe, lingula and left lower lobe bronchi were examined up to the third subsegmental level and no abnormalities were identified. The bronchoscope was then introduced into the right mainstem bronchus. There was mucosal irregularities consistent with endobronchial malignancy noted at the entrance and all segmental bronchi of the right upper lobe. The area bled easily to touch. There was narrowing of the segmental bronchi. The right middle lobe and right lower lobe bronchi were examined up to the third subsegmental level and no abnormalities were identified. There was mucus throughout the airways. Endobronchial biopsies were performed from the right upper lobe. 6 specimens were obtained. Bronchoalveolar lavage was performed from the right upper lobe. 30 cc of saline was introduced, fluid return was 15 mL. The fluid was bloody. The endobronchial ultrasound was introduced through the ET tube. Mediastinal and hilar lymphadenopathy was identified with the ultrasound. Fine-needle aspiration was performed from station 4R and 10 R. Samples: 1. Bronchoalveolar lavage specimen was sent for cytology with cell block. 2. The endobronchial biopsies are sent for histopathology. 3. The transbronchial needle aspirations were sent for histopathology. Complications: There was no immediate complications. Chest x-ray: Pending
--- NOTE | 2021-12-18 08:25 | XR_ITS ---
WS: [id number] Portable AP upright chest, 12/18/2021 Clinical Data: POST EBUS Comparison: Portable chest, 12/10/2021. Findings: The right upper lobe mass with an irregular border remains the same. There are irregular de nsities in the hilum which may represent a postobstructive pneumonia. There are interstitial markings throughout the right lung. There is no mediastinal shift. The heart is normal. The left lung is meli r. The pulmonary vascularity is not increased. Monitor leads are on the chest wall. XR/XR chest 1V portable [id number] Impression: 1. Right upper lobe mass suspicious for cancer of the lung with probable postob structive interstitial infiltrate throughout the right lung especially in the r ight hilum. 2. Worsening postobstructive interstitial infiltrate of the right lung.
--- NOTE | 2021-12-18 08:31 | P.PCN_ITS ---
PACU note Narrative: VSS, Good respiratory effort, report to LAND RECLAMATION SPECIALIST Exam: awake
--- NOTE | 2021-12-18 08:31 | PM.PACU ---
PACU note Narrative: VSS, Good respiratory effort, report to SYSTEM PLANNING ENGINEER Exam: awake
--- NOTE | 2021-12-18 13:58 | ANE.PACU2 ---
Inpatient post-anesthesia follow up: Airway intact: Yes Vital signs: Temperature 97.5 F Pulse Rate 95 Respiratory Rate 18 Blood Pressure 92/62 Pulse Oximetry 90 Oxygen Delivery Me thod Nasal Cannula Oxygen Flow Rate 4 Fraction of Inspir ed Oxygen Hydration adequate: Yes Nausea and vomiting: No Pain level: 2 Mental status: Baseline
[2021-12-21 12:03] LABS: Miscellaneous Test See Scanned Lab Rpt
== END 2021-12-18 09:07 | disposition home or self-care (01) ==
PROVIDERS: PCP Family Medicine; Visit Provider Internal Medicine Critical Care Medicine
PROC: 0BJ08ZZ Inspection of Tracheobronchial Tree, Via Natural or Artificial Opening Endoscopic (ICD-10-PCS; CPT 31622; principal; 2021-12-18 07:00)
PROC: BB4BZZZ Ultrasonography of Pleura (ICD-10-PCS; 2021-12-18 07:00)
DX: C34.90 Malignant neoplasm of unspecified part of unspecified bronchus or lung (principal); J44.9 Chronic obstructive pulmonary disease, unspecified; I48.91 Unspecified atrial fibrillation; I11.0 Hypertensive heart disease with heart failure; I50.9 Heart failure, unspecified; I25.2 Old myocardial infarction; E11.9 Type 2 diabetes mellitus without complications; E78.5 Hyperlipidemia, unspecified
CPT/HCPCS: 31624; 31625; 31652; 71045; 88108; 88305; 88342; J2405; J2704; J3010; J3490; J7030

== ENCOUNTER 2021-12-27 13:46 | Oncology outpatient (recurring) (ONCR) | payer MEDICARE, MEDICAID, SELFPAY | END 2021-12-27 23:59 | disposition home or self-care (01) | PROVIDERS: PCP Family Medicine; Visit Provider Internal Medicine Hematology & Oncology | DX: C34.91 Malignant neoplasm of unspecified part of right bronchus or lung (principal); N40.1 Benign prostatic hyperplasia with lower urinary tract symptoms; N13.8 Other obstructive and reflux uropathy; S32.030S Wedge compression fracture of third lumbar vertebra, sequela; S32.000A Wedge compression fracture of unspecified lumbar vertebra, initial encounter for closed fracture; M43.17 Spondylolisthesis, lumbosacral region; M48.062 Spinal stenosis, lumbar region with neurogenic claudication; R55 Syncope and collapse; Z95.818 Presence of other cardiac implants and grafts; J96.21 Acute and chronic respiratory failure with hypoxia; F17.210 Nicotine dependence, cigarettes, uncomplicated | CPT/HCPCS: 99204 ==

== ENCOUNTER → 2021-12-31 08:46 | Outpatient (BNVA) | payer MEDICARE, MEDICAID, SELFPAY | PROVIDERS: PCP Family Medicine; Visit Provider Surgery | DX: C34.91 Malignant neoplasm of unspecified part of right bronchus or lung (principal) | CPT/HCPCS: 99203 ==

== ENCOUNTER 2022-01-07 13:36 | Oncology outpatient (recurring) (ONCR) | payer MEDICARE, MEDICAID, SELFPAY ==
--- NOTE | 2022-01-07 15:00 | CT_ITS ---
WS: [id number] CT HEAD TECHNIQUE: Noncontrast and contrast-enhanced CT of the head. CLINICAL INFORMATION: Staging COMPARISON: MRI 2019 DLP: 2193.[address] scans at [facility] use at least one of these dose optimization techniques: automated e xposure control; mA and/or kV adjustment per patient size (includes targeted exams where dose is matc hed to clinical indication); or iterative reconstruction. FINDINGS: No evidence of intracranial hemorrhage or mass effect. No abnormal intracranial enhancement. No evide nce of intracranial metastatic disease. No mass effect or edema. Moderate small vessel changes with moderate parenchymal volume loss. Intracranial vascular calcificat ion. Paranasal sinuses are well aerated. Mild mucosal thickening in the posterior ethmoid air cells. Normal posterior nasopharynx. CT/CT head wo/w con [id number] IMPRESSION: 1. No evidence of intracranial enhancing metastatic disease. 2. Moderate small vessel changes with moderate parenchymal volume loss.
[2022-01-07] MEDS: iohexol 300 mg/mL 100 mL Btl IV (15:12)
== END 2022-01-17 23:59 | disposition home or self-care (01) ==
PROVIDERS: PCP Family Medicine; Visit Provider Internal Medicine Hematology & Oncology
DX: C34.91 Malignant neoplasm of unspecified part of right bronchus or lung (principal)
CPT/HCPCS: 70470

== ENCOUNTER 2022-01-14 11:18 | Day surgery (SDC) | payer MEDICARE, MEDICAID, SELFPAY ==
[2022-01-11 08:44] VITALS: BMI 31.1
--- NOTE | 2022-01-14 | SCC_ITS ---
Procedure done: Mediport placement 2.3 seconds of fluoroscopic guidance, for a cumulative dose of 1.29 mGy, was provided to Dr. Humphreys by the radiology department. C-arm images of the chest were saved for the patient's permanent record. [facility]
--- NOTE | 2022-01-14 11:30 | SC_ITS ---
WS: [id number] C-ARM RADIOGRAPHS CHEST; 3 IMAGES HISTORY: mediport placement COMPARISON: None available. Intraoperative imaging during Mediport placement. LEFT subclavian Mediport terminates in the mid SVC. SC/C-arm [place] for CVA [id number] IMPRESSION: Intraoperative imaging during LEFT subclavian Mediport placement.
--- NOTE | 2022-01-14 11:30 | XR_ITS ---
WS: [id number] PORTABLE CHEST HISTORY: post mediport placement COMPARISON: 12/18/2021. Placement of a left-sided Mediport with tip terminating in the mid SVC. Dense area of consolidation in the RIGHT upper lobe. This is probably related to the patient's progre ssion of tumor. Less likely due to the placement of the Mediport. Patient has a known large RIGHT upp er lobe malignancy. No pleural effusion. There is mild irregular interstitial thickening throughout t he RIGHT lung which may be lymphangitic spread of tumor. LEFT lung is clear. Cardiac size: Normal. Mediastinum/Aorta: Obscuration of the RIGHT paratracheal region to by the large RIGHT upper lobe cons olidation. No osseous abnormality seen. XR/XR chest 1V portable [id number] IMPRESSION: 1. Placement of a LEFT subclavian Port-A-Cath. 2. Dense area of consolidation in the RIGHT upper lung is most likely due to patient's known progressive malignancy and not complications from the Mediport placement.
[2022-01-14 11:36] VITALS: BP 108/60; PULSE 106; RESP 20; O2SAT 92
--- NOTE | 2022-01-14 11:59 | W.PM.OPSUD ---
Surgery/Procedure H&P Update DATE OF PROCEDURE: January 14, 2022 DATE H&P PERFORMED: 12/31/21 CHANGES TO PREVIOUS DOCUMENTATION: none PREOP DIAGNOSIS: Lung cancer PLANNED PROCEDURE: Operation Date: 01/14/22 13:00 Proposed Procedures p port a cath placement 86645,C34.91(Not Applicable) - Jerson Humphreys DO
[2022-01-14 12:11] LABS: Glucose Point of Care 159 mg/dL (70-110)
[2022-01-14] MEDS: sodium chloride 0.9% 1,000 ML 30 ML IV (12:23)
[2022-01-14 12:47] LABS: Anion Gap 16.9 (5-19); Blood Urea Nitrogen 7 mg/dL (8-23); Calcium 9.3 mg/dL (8.5-10.5); Carbon Dioxide 27 mmol/L (22-29); Chloride 91 mmol/L (98-107); Glomerular Filtration Rate 212.7 mL/min (90-130); Glucose 169 mg/dL (65-115); Osmolality Calculated 274 mOsm/kg (285-295); Potassium 3.9 mmol/L (3.5-5.1); Sodium 131 mmol/L (136-145)
--- NOTE | 2022-01-14 13:43 | P.ANESASSM_ITS ---
Pre-Anesthetic Assessment Height/Weight: Height 1.78 m Weight 98.543 kg Pulse Resp BP Pulse Ox 106 H 20 H 108/60 92 01/14/22 11:36 01/14/22 11:36 01/14/22 11:36 01/14/22 11:36 Preop Diagnosis: Lung cancer Operation Date: 01/14/22 13:00 Proposed Procedures p port a cath placement 44078,C34.91(Not Applicable) - Jerson Humphreys DO Familial anesthetic complications: none Was Beta Amparo taken within 24 hours: N/A Was Clonidine taken within 24 hours: N/A Last intake: Intake Last Liquid Date 01/14/22 Last Liquid Time 08:00 Last Solid Date 01/13/22 Last Solid Time 16:30 Social Tobacco and No alcohol Exam alert, oriented x 3, clear to auscultation bilaterally and regular rate & rhythm Airway Mallampati: Class III Dentition: full Pulmonary Chronic Obstructive Pulmonary Disease (has been on O2 previously) CV/HEM Atrial Fibrillation and Coronary Artery Disease Metabolic Diabetes Mellitus Musc/skel Lower Back Pain Anesthetic Plan ASA status: 4 Anesthesia: MAC Risk of > 500 ml blood loss (7ml/kg in children): No Medications/Allergies Home Medications Medication Instructions Recorded Confirmed Last Taken Type amlodipine 10 mg tablet 10 mg PO QDAY 08/05/19 01/14/22 01/14/22 History ibuprofen 800 mg tablet 800 mg PO Q8H 08/05/19 01/14/22 01/11/22 History metformin 500 mg tablet 500 mg PO BID 08/05/19 01/14/22 01/13/22 History tizanidine 4 mg tablet 4 mg PO Q8H PRN 08/05/19 01/14/22 01/13/22 History nitroglycerin 2.5 mg 2.5 mg PO DAILY cap 02/07/20 01/14/22 12/17/21 History capsule,extended release fluoxetine 20 mg capsule (Prozac) 20 mg PO DAILY cap 03/07/20 01/14/22 01/13/22 History omeprazole 20 mg capsule,delayed 20 mg PO BID cap 03/07/20 01/14/22 01/14/22 History release simvastatin 20 mg tablet 40 mg PO QDAY tab 03/07/20 01/14/22 01/13/22 History finasteride 5 mg tablet 5 mg PO DAILY 03/07/21 01/14/22 01/13/22 History levetiracetam 500 mg tablet 500 mg PO BID 90 Days #180 tab 03/28/21 01/14/22 01/13/22 Rx (Keppra) metoprolol succinate 25 mg 25 mg PO BID #180 tab 05/04/21 01/14/22 01/13/22 Rx tablet,extended release 24 hr tamsulosin 0.4 mg capsule 0.4 mg PO DAILY #90 cap 06/27/21 01/14/22 01/13/22 Rx semaglutide 3 mg tablet (Rybelsus) 3 mg PO DAILY 08/03/21 01/14/22 01/13/22 His tory apixaban 5 mg tablet (Eliquis) 5 mg PO BID #180 tab 10/12/21 01/14/22 01/11/22 Rx isosorbide dinitrate 5 mg tablet 5 mg PO BID 12/07/21 01/14/22 01/13/22 History ferrous gluconate 324 mg (37.5 mg 324 mg PO BIDWM #60 tab 12/11/21 01/14/22 01/13/22 Rx iron) tablet furosemide 20 mg tablet 40 mg PO QAM #0 tab 12/11/21 01/14/22 01/13/22 Rx aspirin 81 mg tablet,delayed 81 mg PO DAILY 12/18/21 01/14/22 01/11/22 History release albuterol sulfate 90 mcg/actuation 1 puff INHALATION DIRECTED 01/11/22 01/14/22 01/13/22 History aerosol inhaler budesonide-formoterol HFA 160 1 puff INHALATION DIRECTED 01/11/22 01/14/22 01/13/22 History mcg-4.5 mcg/actuation aerosol inhaler fluticasone furoate 200 INHALATION 01/11/22 01/13/22 History mcg-vilanterol 25 mcg/dose inhalation powder (Breo Ellipta) Allergies Allergy/AdvReac Type Severity Reaction Status Date / Time No Known Allergies Allergy Verified 12/27/21 15:15 Current Medications Generic Name Dose Route Start Last Admin Trade Name Freq PRN Reason Stop Dose Admin Sodium Chloride 1,000 mls @ 30 mls/hr 01/14/22 11:30 01/14/22 12:23 Sodium Chloride 0.9% IV 01/15/22 11:29 30 mls/hr .Q24H CATHI Administration PFSH Anesthesia Medical History Acute respiratory failure with hypoxemia Adenocarcinoma of right lung Asthmatic bronchitis Atrial fibrillation BPH (benign prostatic hyperplasia) BPH w urinary obs/LUTS COPD (chronic obstructive pulmonary disease) Cough syncope Diabetes Dyspnea on exertion Facet arthropathy, lumbar Gross hematuria High cholesterol Intervertebral disc disorder with radiculopathy of lumbar region Kidney lesion Kidney lesion Lumbar compression fracture 12/10/2019 Lumbar stenosis with neurogenic claudication Lung mass Myalgia Positive cardiac stress test Seizure Sinusitis Skin cancer Smoking Spinal stenosis, lumbar region with neurogenic claudication Spondylolisthesis of lumbosacral region Syncope and collapse Tobacco abuse Surgical History History of appendectomy History of eye surgery (~01/18/20) Status post placement of implantable loop recorder 12/17/2018 Family History Father , at age 80 CAD (coronary artery disease) Mother , at age 85 CAD (coronary artery disease) Stroke Family/Other CAD (coronary artery disease) Cancer Hyperlipidemia Sister Cancer Social History Smoking and tobacco status: current every day smoker cigarettes Packs smoked per day: 2 Alcohol intake: never Household members: significant other and children Marital status: Life Partner Current occupational status: disabled History of recent travel: No Data Anesthesia : 01/14/22 12:06 BMP 01/14/22 12:06 Sodium 131 L Potassium 3.9 Chloride 91 L Carbon Dioxide 27 BUN 7 L Creatinine 0.4 L Glucose 169 H Calcium 9.3 Cardiac Studies: Echocardiogram 12/07/21 Sestamibi Stress Test (Cardiology) 03/30/21
[2022-01-14] MEDS: heparin, porcine 1,000 unit/mL INJ 10 mL 10000 UNIT INJECTION (14:46)
--- NOTE | 2022-01-14 14:50 | P.OP_ITS ---
Operative Report Date of procedure: January 14, 2022 Pre-op diagnosis: Preop Diagnosis Lung cancer Post-op diagnosis: same Procedure done: Mediport placement Implants: Mediport Surgeon: Dr. Jerson Humphreys DO Estimated blood loss: 5 Complications: None apparent Brief History: 71-year-old gentleman with adenocarcinoma of the right lung. He is in need of chemotherapy. Mediport insertion was indicated. The risks and benefits were explained and documented. Procedure: Patient was taken to the operating room and placed supine on the operating room table. All bony prominences were padded. She was given IV sedation and monitored throughout the case by the anesthesia personnel. SCDs were placed and turned on. The arms were tucked to the side. Patient received Ancef 2 g preoperatively IV. The bilateral chest wall was prepped and draped in usual sterile fashion using chlorhexidine base prep. Sterile drapes were applied. We did procedure pause prior to beginning. An 18 gauge needle was placed in the left subclavian vein. Dark, nonpulsatile blood was aspirated. A guidewire was placed through the needle centrally toward the atrial/vena caval junction. Fluoroscopy visualized good placement. The needle was removed and the guidewire was clipped to the drape with a hemostat. Further local anesthetic was infiltrated in the soft tissues of the left chest wall and a #15 blade was used to make a horizontal skin incision. A subcutaneous Mediport pocket was created using Bovie cautery, dissecting down through the skin and subcutaneous tissues. Meticulous hemostasis was achieved. The Mediport was sutured in position using 3-0 vicryl suture x2 stitches. A #15 blade was used to make a small skin jad around the guidewire insertion area. The Mediport tubing was tunneled through the subcutaneous tissues up to the needle insertion location. A dilator with a peel-away sheath was placed over the guidewire and placed centrally. After measuring with fluoroscopy, the Mediport tubing was cut to length so that the tip would end at the atrial/vena caval junction. The inner cannula and the guidewire were removed, leaving the dilator sheath in place. The Mediport was flushed. The tip of the catheter was inserted through the peel-away sheath and the peel-away sheath removed in the standard fashion. The Mediport was accessed with a straight Winston needle and dark, nonpulsatile blood was aspir ated and flushed using heparinized saline to hep-lock the Mediport. Final fluoroscopy visualization showed no kink in the catheter and the tip of the Mediport tubing near the atrial/vena caval junction. Both skin incisions were thoroughly irrigated and suctioned dry. Meticulous hemostasis noted. The Mediport incision was closed using interrupted 3-0 Vicryl suture for the deep dermal layer. Dermabond was used to close the skin. The left subclavian insertion site incision was closed with a single subcuticular stitch. Skin glue was applied as a topical dressing. This was allowed to dry. Patient was awakened from anesthesia and transferred via her cart to the recovery room in stable condition. All needle, sponge, and instrument counts were correct per the operating personnel x2 counts.
[2022-01-14 14:52] VITALS: BP 84/49; PULSE 97; RESP 18; TEMP 36.3; O2SAT 97
[2022-01-14 14:56] VITALS: BP 103/50; PULSE 97; RESP 18; O2SAT 97
[2022-01-14 15:01] VITALS: BP 92/52; PULSE 99; RESP 18; O2SAT 97
[2022-01-14 15:10] VITALS: BP 121/78; PULSE 85; RESP 18; TEMP 36.6; O2SAT 95
[2022-01-14 15:55] VITALS: BP 118/75; PULSE 88; RESP 18; TEMP 36.7; O2SAT 93
--- NOTE | 2022-01-14 16:01 | ANE.PACU2 ---
Inpatient post-anesthesia follow up: Airway intact: Yes Vital signs: Temperature 97.3 F Pulse Rate 99 Respiratory Rate 18 Blood Pressure 92/52 Pulse Oximetry 97 Oxygen Delivery Me thod Room Air Oxygen Flow Rate 6 Fraction of Inspir ed Oxygen Hydration adequate: Yes Nausea and vomiting: No Pain level: 2 Mental status: Baseline
== END 2022-01-14 16:05 | disposition home or self-care (01) ==
PROVIDERS: Anesthesiology; PCP Family Medicine; Visit Provider Surgery
PROC: (CPT 36561; principal; 2022-01-14 12:50)
DX: C34.91 Malignant neoplasm of unspecified part of right bronchus or lung (principal); J44.9 Chronic obstructive pulmonary disease, unspecified; I48.91 Unspecified atrial fibrillation; I25.10 Atherosclerotic heart disease of native coronary artery without angina pectoris; E11.9 Type 2 diabetes mellitus without complications; Z79.84 Long term (current) use of oral hypoglycemic drugs; N40.1 Benign prostatic hyperplasia with lower urinary tract symptoms; N13.8 Other obstructive and reflux uropathy; F17.210 Nicotine dependence, cigarettes, uncomplicated
CPT/HCPCS: 36561; 36416; 36592; 71045; 77001; 80048; 82962; C1788; J1644; J2250; J2704; J3490; J7030

== ENCOUNTER → 2022-01-30 08:52 | Outpatient (BNVA) | payer MEDICARE, MEDICAID, SELFPAY | PROVIDERS: PCP Family Medicine; Visit Provider Surgery | DX: C34.91 Malignant neoplasm of unspecified part of right bronchus or lung (principal) | CPT/HCPCS: 99213 ==

== ENCOUNTER 2022-02-13 08:22 | Oncology outpatient (recurring) (ONCR) | payer MEDICARE, MEDICAID, SELFPAY ==
[2022-02-11 13:30] LABS: Basophils # 0.1 10^3/uL (0.0-0.1); Basophils % 0.7 %; Eosinophils # 0.2 10^3/uL (0.0-0.8); Eosinophils % 1.1 %; Hemoglobin 13.2 g/dL (11.7-16.6); Lymphocytes # 1.3 10^3/uL (0.8-4.8); Mean Corpuscular Hemoglobin 29.7 pg (28.0-34.0); Mean Corpuscular Volume 90.1 fl (80-94); Mean Platelet Volume 8.6 fL (7.4-10.4); Monocytes # 0.9 10^3/uL (0.2-0.9); Monocytes % 6.5 %; Neutrophils # 11.73 10^3/uL (1.8-7.7); Neutrophils % 82.3 %; Nucleated Red Blood Cells % 0 %; Platelet Count 581 10^3/cmm (130-400); Red Blood Count 4.44 10^6/uL (4.1-5.3); Red Cell Distribution Width 15.1 % (12.1-15.1); White Blood Count 14.3 10^3/uL (4.0-10.0)
[2022-02-11 14:07] LABS: Alanine Aminotransferase 9 U/L (0-41); Albumin Level 3.1 g/dL (3.5-5.2); Alkaline Phosphatase 190 IU/L (40-130); Anion Gap 14.5 (5-19); Aspartate Amino Transferase 12 U/L (0-40); Blood Urea Nitrogen 6 mg/dL (8-23); Calcium 9.6 mg/dL (8.5-10.5); Carbon Dioxide 30 mmol/L (22-29); Chloride 87 mmol/L (98-107); Glomerular Filtration Rate 212.7 mL/min (90-130); Glucose 114 mg/dL (65-115); Osmolality Calculated 262 mOsm/kg (285-295); Potassium 4.5 mmol/L (3.5-5.1); Sodium 127 mmol/L (136-145); Total Bilirubin 0.4 mg/dL (0.15-1.2); Total Protein 7.1 g/dL (6.6-8.7)
--- NOTE | 2022-02-12 16:13 | N.ONRAD NP_ITS ---
Radiation Oncology New Patient Visit Patient: Keith Pennington MR#: [id number] : 1950 Age: 71 Sex: Male Dictated by: Dr. Lion David Date of Service: 02/12/2022 Referring Physician(s) : Dr. Darvin Altman Diagnosis: Lung, right, adenocarcinoma, metastatic to bone Radiotherapy to date: Summary > No prior radiation therapy. Chief Complaint / History of Present Illness: Mr. Pennington is a 72-year-old man who was evaluated about 2 months ago for increasing shortness of breath, cough, and sputum production. He had a chest x-ray which showed a mass in the right upper lobe as well as infiltrates in the right mid and lower lung. CT of the chest was performed that showed the mass in the right upper lobe but no lymphadenopathy. He underwent an endobronchial ultrasound-guided biopsy of the right upper lobe which showed invasive adenocarcinoma with mucinous features. Also a station 4R node was biopsied with similar technique and showed adenocarcinoma. Also a lymph node from station 10 R showed adenocarcinoma. A PET scan was performed for staging 01/05/2022. The study showed the mass to be about 16.6 x 5.1 cm in the medial right upper lobe. Positive nodes were noted in the right paratracheal area and subcarinal area. Multiple metastatic lesions were seen and the bilateral iliac crest, left pubic ramus, left femur, T1, T5-T8, medial right clavicle, C3, bilateral humeri, and sternum. Mr. Pennington saw Dr. Altman yesterday. He is having pain in his neck in the area of C3. He is also having pain in the left hip area. Dr. Altman has asked that he be evaluated for palliative radiation to these bony sites as well as to the large right upper lobe mass. Current Medications: Albuterol Sulfate, ramonita Advanced Aspirin Reg St, breo Ellipta, budesonide-Formoterol Fumarate, eliquis, fLUoxetine HCl, fluticasone Furoate, levETIRAcetam ER, metFORMIN HCl, metoprolol Tartrate, omeprazole, rybelsus, spiriva Respimat, tamsulosin HCl, tiZANidine HCl. Allergies: No Known Allergies Medical History: Cancer, diabetes, heart disease, kidney stones. No history of collagen vascular disease. No previous radiation therapy. Surgical History: Appendectomy. Family History: Social History: Last screened on 02/12/2022 - Current some day smoker 1.0 pack/day. Last screened on 02/12/2022 - Past drinker. Current Complaints / Review of Systems: . Vital Signs: Performed on 02/12/2022 1:37 PM BMI - 30.276 kg/m2 (high), Height - 70 in, Weight - 211 lbs, Temperature - 98.0 f, Pulse - 90 /min, Respiration - 18 /min, O2 Sat - 94 % (low), Pain - 8, Fatigue - 0 and BP - 88/ 55 mm(hg)(low). Physical Exam: Alert, oriented, no acute distress. He appears chronically ill. He has lost about 30 pounds over the last several months. Neck: Supple. No masses. No cervical or supraclavicular lymphadenopathy. Lungs: Clear to percussion. On auscultation no rales, rhonchi, or wheezes. Heart: Regular rhythm. No murmur, gallop, or rub. Abdomen: No distention. No organomegaly or mass or tenderness. Musculoskeletal he has very distinct and easily reproducible tenderness over the mid cervical spine, the left lateral SI joint, and over the left greater trochanter of the femur. No other areas of acute bone tenderness detected. Performance Status: ECOG 3 Pathology: Lab: Imaging: See HPI Impression: Metastatic non-small cell carcinoma of the lung. Mr. Pennington is a candidate for palliative radiation to the right lung mass, C3, and the right hip area. The hip field will be relatively large including the hip joint and upper femur as well as the left SI joint. Plan: Simulation is scheduled tomorrow. Signed by: 02/12/2022 4:13:00 PM <<Signature on File>> Time spent with patient: CPT Code: CPT Code:
--- NOTE | 2022-02-13 | CT_ITS ---
Radiation Therapy Planning CT images; total exam DLP: 585.96 mGy-cm and 780.14 mGy-cm. MTDD
== END 2022-02-17 23:59 | disposition home or self-care (01) ==
PROVIDERS: Nurse Practitioner Family; PCP Family Medicine; Visit Provider Specialist
DX: C34.91 Malignant neoplasm of unspecified part of right bronchus or lung (principal); Z51.0 Encounter for antineoplastic radiation therapy
CPT/HCPCS: 36591; 77290; 77295; 77300; 77334; 77470; 80053; 85025; 99215

== ENCOUNTER 2022-02-22 08:58 | Oncology outpatient (recurring) (ONCR) | payer MEDICARE, MEDICAID, SELFPAY ==
--- NOTE | 2022-02-18 10:21 | ONCRAD TMN_ITS ---
1Radiation Oncology Treatment Management Note Patient Name: Keith Pennington Date of : 1950 Date of Service: 02/18/2022 Attending Physician: Lior Allen M.D. Keith Pennington is a 71 year old white male diagnosed with metastatic non-small cell lung cancer. The patient has received 3 Gy of a prescribed 30 Schroeder to C3 with a 3-dimensional conformal radiotherapy plan utilizing an AP port with wedge pair treatment schroeder, 3 Gy of an expected 30 Gy to the right lung mass designed with AP/PA/DENNISON ports, and 3 Gy of a planned 30 Gy to the left hip incorporating a 3-field design. Upon review of systems, he described phlegm. On physical examination, the patient weighed 207 lbs. His temperature was 98.1 ???F and the blood pressure was 103/65 mmHg. His pulse was 65 bpm and his respiratory rate was 96. No erythema was present within the skin. Continue palliative radiotherapy as prescribed. Signed by: Dr. Lior Allen 02/18/2022 10:19:28 AM
== END 2022-03-20 23:59 | disposition home or self-care (01) ==
PROVIDERS: PCP Family Medicine; Visit Provider Radiology Radiation Oncology
DX: Z51.0 Encounter for antineoplastic radiation therapy (principal); C34.91 Malignant neoplasm of unspecified part of right bronchus or lung
CPT/HCPCS: 77387; 77412

== ENCOUNTER 2022-02-23 09:27 | Inpatient (IN) | payer MEDICARE, MEDICAID, SELFPAY ==
[2022-02-23] VITALS (15 sets, daily range): BP systolic 84–158; BP diastolic 56–82; PULSE 88–114; RESP 16–20; TEMP 36.6–36.7; O2SAT 92–97; BMI 29.1; BMI 28.3
--- NOTE | 2022-02-23 09:36 | ECG_ITS ---
[facility] Test Date: 2022-02-23 Pat Name: Keith Pennington Department: Room: Gender: Male Orthopedic Physician: : 1950 Requested By: Job Rouse Order Number: [id number] Selena MD: Jv Mahoney M.D. Measurements Intervals [place] Rate: 107 P: 96 TX: 127 QRS: 49 QRSD: 85 T: 88 QT: 308 QTc: 411 Interpretive Statements SINUS TACHYCARDIA NONSPECIFIC T-WAVE ABNORMALITY ABNORMAL RHYTHM ECG Compared to ECG 12/07/2021 15:35:14 Sinus rhythm no longer present T-wave abnormality still present Electronically Signed On 02-23-2022 18:57:41 CDT by Jv Mahoney M.D. [id number]
--- NOTE | 2022-02-23 09:49 | CTR_ITS ---
PROCEDURE INFORMATION: Exam: CT Head Without And With Contrast Exam date and time: 02/23/2022 11:07 AM Age: 71 years old Clinical indication: Injury or trauma; Fall; Blunt trauma (contusions or hematomas); Consciousness not specified; Additional info: Fall, lung CA w mets, on anticoagulants TECHNIQUE: Imaging protocol: Computed tomography of the head without and with contrast. Radiation optimization: All CT scans at this facility use at least one of these dose optimization techniques: automated exposure control; mA and/or kV adjustment per patient size (includes targeted exams where dose is matched to clinical indication); or iterative reconstruction. Contrast material: OMNIPAQUE 350; Contrast volume: 80 ml; Contrast route: INTRAVENOUS (IV); COMPARISON: CT head wo/w con [id number] 01/07/2022 2:51 PM RADIATION DOSE METRICS: Total DLP (mGy-cm): 2094.78 FINDINGS: Brain: Patchy hypoattenuation in the periventricular and subcortical white matter, consistent with chronic small vessel ischemia. No CT evidence of acute ischemia. No acute hemorrhage. No mass effect. Cerebral ventricles: Global cerebral volume loss with ex vacuo dilatation of the ventricles. Paranasal sinuses: Visualized sinuses are unremarkable. No fluid levels. Mastoid air cells: Visualized mastoid air cells are well aerated. Bones/joints: Unremarkable. No acute fracture. Soft tissues: Unremarkable. CT/CT head wo/w con [id number] IMPRESSION: No acute intracranial abnormality.
--- NOTE | 2022-02-23 09:51 | W.ED.SYNCOPE ---
HPI - Syncope General: Chief Complaint: Syncope Stated Complaint: SYNCOPE Time Seen by Provider: 02/23/22 09:29 Source: patient Mode of arrival: ambulatory Limitations: no limitations History of Present Illness: 71-year-old male with a history of lung CA with mets to the bone presents to the emergency room after a fall associated a near syncopal event immediately after standing.. Patient had stood up got lightheaded dizzy and weak stumbled forward and actually crashed into a wall broke through some of the drywall he has some bruising on his face. There is no loss consciousness he is on apixaban. He had a CT of his head and December of this year that was negative for any metastasis. He is awake and alert at this time remembers all the events of the fall. He is complaining some mild facial pain generally seems very unsteady denies any chest pain at this time. On arrival here he is on 4 L by nasal cannula. Titrated him down to 2 L and his sats decreased again into the low 90s. He has been unsteady on his feet from time to time. When I first seen the patient he tells me he is not on any oxygen at home however there is a notation I found in the chart that he is on 4 L regularly. MD complaint: almost passed out Onset (ago): minute(s) Prodromal symptoms: lightheaded Witnessed: Yes - by Bystander Context: standing up Injuries sustained associated with event: face Associated symptoms: Deny abdominal pain, chest pain, fever(s) or nausea Treatments prior to arrival: none Review of Systems Const: Denies: fever(s), chills, body aches, change in appetite, fatigue or malaise ENMT: Denies: throat pain, ear or mastoid pain, nasal discharge or nasal congestion Card: Denies: chest pain, edema, dyspnea on exertion or orthopnea Resp: Denies: dyspnea, productive cough or non-productive cough GI: Denies: abdominal pain, nausea, vomiting, hematemesis, coffee ground emesis, diarrhea, constipation, bloating, hematochezia or melena : Denies: flank pain, dysuria, urinary frequency or urinary urgency Skin/Breast: Denies: rash or pruritus PFS ED PFSH: Medical History Acute respiratory failure with hypoxemia Adenocarcinoma of right lung Asthmatic bronchitis Atrial fibrillation BPH (benign prostatic hyperplasia) BPH w urinary obs/LUTS COPD (chronic obstructive pulmonary disease) Cough syncope Diabetes Dyspnea on exertion Facet arthropathy, lumbar Gross hematuria High cholesterol Intervertebral disc disorder with radiculopathy of lumbar region Kidney lesion Kidney lesion Lumbar compression fracture 12/10/2019 Lumbar stenosis with neurogenic claudication Lung mass Myalgia Non-small cell lung cancer metastatic to bone Positive cardiac stress test Seizure Sinusitis Skin cancer Smoking Spinal stenosis, lumbar region with neurogenic claudication Spondylolisthesis of lumbosacral region Syncope and collapse Tobacco abuse Surgical History History of appendectomy History of eye surgery (~01/18/20) Hx of colonoscopy 5-6 yrs ago Status post placement of implantable loop recorder 12/17/2018 Family History Father , at age 80 CAD (coronary artery disease) Mother , at age 85 CAD (coronary artery disease) Stroke Family/Other CAD (coronary artery disease) Cancer Hyperlipidemia Sister Cancer Social History Smoking and tobacco status: current every day smoker cigarettes Packs smoked per day: 2 Alcohol intake: never Household members: significant other and children Marital status: Life Partner Current occupational status: disabled History of recent travel: No Physical Exam Const: GENERAL APPEARANCE: cooperative and comfortable ORIENTATION/CONSCIOUSNESS: Yes awake HENMT: COMMON NORMALS: normocephalic, atraumatic, hearing grossly normal bilaterally, external ears normal, EAC's normal, TM's normal bilaterally, Normal nasal mucous membranes and turbinates present, moist oral mucous membranes and oropharynx normal HEAD & SCALP: normocephalic and atraumatic NOSE: Normal nasal mucous membranes and turbinates present EXTERNAL EAR: Yes external ears normal EXTERNAL AUDITORY CANAL: EAC's normal TYMPANIC MEMBRANE: TM's normal bilaterally Eye: COMMON NORMALS: Equal, round and reactive pupils present, EOMs intact bilaterally, conjunctivae normal and no scleral icterus CONJUNCTIVA: Yes conjunctivae normal PUPIL: Yes Equal, round and reactive pupils present Resp: COMMON NORMALS: normal respiratory effort, No retractions, No use of accessory muscles and clear to auscultation bilaterally AUSCULTATION: clear to auscultation bilaterally Cardio: COMMON NORMALS: regular rate, regular rhythm and No murmurs present (Cardio) RATE: regular rate RHYTHM: regular rhythm GI: COMMON NORMALS: Soft to palpation and No hepatosplenomegaly present AUSCULTATION: Yes normoactive bowel sounds PALPATION: Yes Soft to palpation, No Tenderness to palpation present (GI), No Guarding due to palpation present (GI) and Yes No hepatosplenomegaly present Extremity: COMMON NORMALS: normal to inspection, capillary refill normal, no clubbing, cyanosis or edema, no calf tenderness and no pedal edema Skin: COMMON NORMALS: no rashes or lesions noted GENERAL SKIN EXAM: no rashes or lesions noted Course Vital Signs: Vital signs: Vital Signs Temperature 98.1 F 02/23/22 09:49 Pulse Rate 96 02/23/22 13:38 Respiratory Rate 20 H 02/23/22 13:38 Blood Pressure 122/72 02/23/22 13:38 Pulse Oximetry 94 02/23/22 13:38 Oxygen Delivery Me thod 02/23/22 13:38 Oxygen Flow Rate 2 02/23/22 13:38 MDM - Syncope Medical Decision Making Syncope clinically suspect patient has pneumonia. Cultures done and started on antibiotics cussed with hospitalist orders written. He has mild hyponatremia but it does not look to be to are far off his baseline. He is a little improved with fluids. Medical Records I reviewed the patient's medical records. Lab Data I reviewed the patient's lab results. : 02/23/22 10:10 02/23/22 10:[address] 02/23/22 09:49 IMPRESSION: No acute intracranial abnormality. Laboratory Results WBC 12.8 10^3/uL (4.0-10.0) H 02/23/22 10:10 RBC 4.25 10^6/uL (4.1-5.3) 02/23/22 10:10 Hgb 12.8 g/dL (11.7-16.6) 02/23/22 10:10 Hct 38.8 % (42.0-52.0) L 02/23/22 10:10 MCV 91.3 fl (80-94) 02/23/22 10:10 MCH 30.1 pg (28.0-34.0) 02/23/22 10:10 MCHC 33.0 g/dL (30.0-36.0) 02/23/22 10:10 RDW 15.3 % (12.1-15.1) H 02/23/22 10:10 Plt Count 573 10^3/cmm (130-400) H 02/23/22 10:10 MPV 8.6 fL (7.4-10.4) 02/23/22 10:10 Neut % (Auto) 92.0 % 02/23/22 10:10 Lymph % (Auto) 2.3 % 02/23/22 10:10 [place] % (Auto) 4.9 % 02/23/22 10:10 Eos % (Auto) 0.1 % 02/23/22 10:10 Baso % (Auto) 0.2 % 02/23/22 10:10 Neut # (Auto) 11.75 10^3/uL (1.8-7.7) H 02/23/22 10:10 Lymph # (Auto) 0.3 10^3/uL (0.8-4.8) L 02/23/22 10:10 [place] # (Auto) 0.6 10^3/uL (0.2-0.9) 02/23/22 10:10 Eos # (Auto) 0.0 10^3/uL (0.0-0.8) 02/23/22 10:10 Baso # (Auto) 0.0 10^3/uL (0.0-0.1) 02/23/22 10:10 Nucleated RBC % (auto) 0 % 02/23/22 10:10 Nucleated RBCs # 0.0 /100WBC 02/23/22 10:10 Sodium 126 mmol/L (136-145) L 02/23/22 10:46 Potassium 5.1 mmol/L (3.5-5.1) 02/23/22 10:46 Chloride 84 mmol/L (98-107) L 02/23/22 10:46 Carbon Dioxide 29 mmol/L (22-29) 02/23/22 10:46 Anion Gap 18.1 (5-19) 02/23/22 10:46 BUN 12 mg/dL (8-23) 02/23/22 10:46 Creatinine 0.3 mg/dL (0.7-1.2) L 02/23/22 10:46 GFR Calculation 296.4 mL/min (90-130) H 02/23/22 10:46 Glucose 155 mg/dL (65-115) H 02/23/22 10:46 POC Glucose 159 mg/dL (70-110) H 02/23/22 09:47 Calculated Osmolality 265 mOsm/kg (285-295) L 02/23/22 10:46 Calcium 9.6 mg/dL (8.5-10.5) 02/23/22 10:46 Total Bilirubin 0.6 mg/dL (0.15-1.2) 02/23/22 10:46 AST 18 U/L (0-40) 02/23/22 10:46 ALT 8 U/L (0-41) 02/23/22 10:46 Alkaline Phosphatase 175 IU/L (40-130) H 02/23/22 10:46 Troponin T Baseline 15 ng/L (0-15) 02/23/22 10:46 Troponin T 120 Minute 12.62 ng/L (0-15) 02/23/22 12:40 Delta Troponin T -2.38 ABS# (0-10) L 02/23/22 12:40 Total Protein 7.3 g/dL (6.6-8.7) 02/23/22 10:46 Albumin 2.7 g/dL (3.5-5.2) L 02/23/22 10:46 Globulin 4.6 g/dL (1.3-4.6) 02/23/22 10:46 Urine Color Yellow (Yellow) 02/23/22 10:59 Urine Appearance Clear (CLEAR) 02/23/22 10:59 Urine pH 6.5 (5-7) 02/23/22 10:59 Ur Specific [place] 1.015 (1.005-1.030) 02/23/22 10:59 Urine Protein Neg (Negative) 02/23/22 10:59 Urine Glucose (UA) Norm (Normal) 02/23/22 10:59 Urine Ketones 1+ (Negative) H 02/23/22 10:59 Urine Blood 2+ (Negative) H 02/23/22 10:59 Urine Nitrate Negative (Negative) 02/23/22 10:59 Urine Bilirubin Neg (Negative) 02/23/22 10:59 Urine Urobilinogen 4 mg/dL (Negative) H 02/23/22 10:59 Ur Leukocyte Esterase Negative (Negative) 02/23/22 10:59 Urine RBC 15-25 /hpf (0-2) H 02/23/22 10:59 Urine WBC 0-4 /hpf (0-5) H 02/23/22 10:59 Ur Squamous Epith Cells 0-4 /hpf (0-5) H 02/23/22 10:59 Amorphous Sediment Not Reportable 02/23/22 10:59 Urine Bacteria Trace /hpf (NONE) 02/23/22 10:59 Hyaline Casts 10-15 /lpf H 02/23/22 10:59 Urine Mucus 2+ /hpf 02/23/22 10:59 Discharge Plan Discharge Patient Disposition: Placed in Observation Clinical Impression: Pneumonia, Syncope and collapse, Non-small cell lung cancer metastatic to bone Condition: Stable Prescriptions: No Action amlodipine 10 mg tablet 10 mg PO QDAY ibuprofen 800 mg tablet 800 mg PO Q8H metformin 500 mg tablet 500 mg PO BID tizanidine 4 mg tablet 4 mg PO Q8H PRN (Reason: Spasms) simvastatin 20 mg tablet 40 mg PO QDAY omeprazole 20 mg capsule,delayed release(DR/EC) 20 mg PO BID fluoxetine [Prozac] 20 mg capsule 20 mg PO BID nitroglycerin 2.5 mg capsule, extended release 2.5 mg PO DAILY Rx Instructions: allow nitrate-free interval of approx. 10-12 hrs per 24-hour period levetiracetam [Keppra] 500 mg tablet 500 mg PO BID 90 Days Qty: 180 4RF Rx Instructions: Please give regular Keppra until XR is available. Rybelsus 3 mg tablet 3 mg PO DAILY finasteride 5 mg tablet 5 mg PO DAILY metoprolol succinate 25 mg tablet extended release 24 hr 25 mg PO BID Qty: 180 3RF fluticasone propionate 50 mcg/actuation spray,suspension 1 spray intranasal DAILY Rx Instructions: administer into each nostril tamsulosin 0.4 mg capsule 0.4 mg PO BID Spiriva Respimat 1.25 mcg/actuation mist 2 puff inhalation DAILY furosemide 20 mg tablet 20 mg PO QAM morphine 15 mg tablet extended release 15 mg PO Q12H 30 Days Qty: 60 0RF oxycodone-acetaminophen [Percocet] 5-325 mg tablet 1 - 2 tab PO .Q4-6H PRN (Reason: pain) 30 Days Qty: 60 0RF Eliquis 5 mg tablet 5 mg PO BID Qty: 180 3RF Hold Instructions: Resume on 01/17/22. (DME) Wheelchair See Rx Instructions .Route .MEDSUPPLY Qty: 1 0RF Rx Instructions: As directed albuterol sulfate 90 mcg/actuation HFA aerosol inhaler 1 puff INHALATION DIRECTED budesonide-formoterol 160-4.5 mcg/actuation HFA aerosol inhaler 1 puff INHALATION DIRECTED fluticasone furoate-vilanterol [Breo Ellipta] 200-25 mcg/dose blister with device INHALATION aspirin 81 mg tablet,delayed release (DR/EC) 81 mg PO DAILY Referrals: Fox Alston DO [Primary Care Provider] - Coding Level of Care Code ED Reliability Engineer for Chg Fwd Exam Comprehensive
[2022-02-23 09:52] LABS: Glucose Point of Care 159 mg/dL (70-110)
[2022-02-23 10:15] LABS: Basophils % 0.2 %; Eosinophils % 0.1 %; Hematocrit 38.8 % (42.0-52.0); Hemoglobin 12.8 g/dL (11.7-16.6); Lymphocytes # 0.3 10^3/uL (0.8-4.8); Lymphocytes % 2.3 %; Mean Corpuscular Hemoglobin 30.1 pg (28.0-34.0); Mean Corpuscular Volume 91.3 fl (80-94); Mean Platelet Volume 8.6 fL (7.4-10.4); Monocytes # 0.6 10^3/uL (0.2-0.9); Monocytes % 4.9 %; Neutrophils # 11.75 10^3/uL (1.8-7.7); Nucleated Red Blood Cells % 0 %; Platelet Count 573 10^3/cmm (130-400); Red Blood Count 4.25 10^6/uL (4.1-5.3); Red Cell Distribution Width 15.3 % (12.1-15.1); White Blood Count 12.8 10^3/uL (4.0-10.0)
[2022-02-23 11:17] LABS: Alanine Aminotransferase 8 U/L (0-41); Albumin Level 2.7 g/dL (3.5-5.2); Alkaline Phosphatase 175 IU/L (40-130); Blood Urea Nitrogen 12 mg/dL (8-23); Calcium 9.6 mg/dL (8.5-10.5); Carbon Dioxide 29 mmol/L (22-29); Chloride 84 mmol/L (98-107); Globulin 4.6 g/dL (1.3-4.6); Glomerular Filtration Rate 296.4 mL/min (90-130); Glucose 155 mg/dL (65-115); Osmolality Calculated 265 mOsm/kg (285-295); Sodium 126 mmol/L (136-145); Total Bilirubin 0.6 mg/dL (0.15-1.2); Total Protein 7.3 g/dL (6.6-8.7)
[2022-02-23 11:18] LABS: Troponin(5th) Baseline 15 ng/L (0-15)
[2022-02-23] MEDS: iohexol 350 mg/mL 100 mL Btl IV (11:22)
[2022-02-23 11:23] LABS: Anion Gap 18.1 (5-19); Aspartate Amino Transferase 18 U/L (0-40); Potassium 5.1 mmol/L (3.5-5.1)
--- NOTE | 2022-02-23 11:30 | ECG_ITS ---
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 Measurements Intervals [place] Rate: 96 P: 88 MS: 109 QRS: 51 QRSD: 108 T: 87 QT: 354 QTc: 447 Interpretive Statements SINUS RHYTHM WITH SHORT MS INTERVAL POSSIBLE INFERIOR MYOCARDIAL INFARCTION , PROBABLY OLD [30 ms Q WAVE IN II/aVF] Compared to ECG 02/23/2022 09:36:32 Short MS interval now present Myocardial infarct finding now present Sinus tachycardia no longer present T-wave abnormality no longer present Electronically Signed On 02-23-2022 19:25:15 CDT by Jv Mahoney M.D. [id number]
[2022-02-23] MEDS: sodium chloride 0.9% 1,000 ML 999 ML IV ×2 (12:12→12:57)
[2022-02-23 13:19] LABS: Troponin 5 2HR 12.62 ng/L (0-15)
--- NOTE | 2022-02-23 13:59 | CTR_ITS ---
PROCEDURE INFORMATION: Exam: CTA Chest With Contrast Exam date and time: 02/23/2022 3:16 PM Age: 71 years old Clinical indication: Dyspnea TECHNIQUE: Imaging protocol: Computed tomographic angiography of the chest with contrast. 3D rendering (Not supervised by radiologist): MIP and/or 3D reconstructed images were created by the technologist. Radiation optimization: All CT scans at this facility use at least one of these dose optimization techniques: automated exposure control; mA and/or kV adjustment per patient size (includes targeted exams where dose is matched to clinical indication); or iterative reconstruction. Contrast material: OMNI 350; Contrast volume: 95 ml; Contrast route: INTRAVENOUS (IV); COMPARISON: CT chest wo con [id number] 12/07/2021 11:37 AM RADIATION DOSE METRICS: Total DLP (mGy-cm): 488.81 FINDINGS: Tubes, catheters and devices: Left chest port terminates in the mid SVC. Pulmonary arteries: Normal. No pulmonary emboli. Aorta: Unremarkable. No aortic aneurysm. No aortic dissection. Lungs: Atelectasis of the majority of the right lung with sparing of the anterior segments of the inferior right upper lobe and right middle lobe. Left lung is clear. Pleural spaces: Moderate to large volume right pleural effusion. No pneumothorax. Heart: Coronary artery calcifications noted. No cardiomegaly. No pericardial effusion. Lymph nodes: Nonspecific mildly prominent mediastinal lymph nodes. Bones/joints: Chronic appearing moderate compression deformities of T7 and T12 with sclerotic change. The T7 abnormality is new from most recent comparison. A couple additional subcentimeter rounded sclerotic lesions seen at T3 and T4, new from most recent comparison. Right lateral 7th rib fracture with some focal sclerotic change at the site of fracture as well as at the right 6th rib which is suspicious for additional sites of osseous metastasis. Soft tissues: Loop recorder device noted in the left chest wall. CT/CT angio chest PE protcl [id number] IMPRESSION: 1. Negative for pulmonary embolism. 2. Atelectasis of the majority the right well with sparing of the anterior segments of the inferior right upper lobe and right middle lobe. 3. Moderate to large volume right pleural effusion. 4. Chronic appearing moderate compression deformities of T7 and T11. The findings at T7 are new from most recent comparison which along with a couple additional subcentimeter sclerotic lesions at T3 and T4 are suspicious for osseous metastatic disease and pathologic compression fractures. Right lateral 7th rib fracture, which also appears to have a metastatic lesion in this region with pathologic fracture.
[2022-02-23 14:17] LABS: Troponin 5 2HR Delta -2.38 ABS# (0-10)
[2022-02-23 14:48] LABS: Urine Appearance Clear (CLEAR); Urine Color Yellow (Yellow)
[2022-02-23 14:49] LABS: Add Urine Microscopic? YES; Bilirubin Urine Neg (Negative); Blood Urine 2+ (Negative); Glucose Urine UA Norm (Normal); Ketones Urine 1+ (Negative); Leukocyte Esterase Urine Negative (Negative); Nitrate Urine Negative (Negative); Protein Urine Neg (Negative); Specific Gravity, Urine 1.015 (1.005-1.030); Urobilinogen Urine 4 mg/dL (Negative); pH Urine 6.5 (5-7)
[2022-02-23 14:54] LABS: Bacteria Urine TRACE /hpf; Mucus Urine 2+ /hpf; RBC Urine 15-25 /hpf (0-2); Squamous Epithelial Cell Urine 0-4 /hpf (0-5); WBC Urine 0-4 /hpf (0-5)
[2022-02-23 14:55] LABS: Add Urine Culture? Yes
[2022-02-23] MEDS: piperacillin-tazobactam 3.375 GM in sodium chloride 0.9% (plus) 50 ML IV (14:56)
[2022-02-23] MEDS: levofloxacin-dextrose 5 % 750 MG/150 ML PREMIX 100 MG IV (15:34)
--- NOTE | 2022-02-23 15:49 | ECG_ITS ---
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 Measurements Intervals [place] Rate: 93 P: 87 CT: 126 QRS: 42 QRSD: 90 T: 70 QT: 346 QTc: 431 Interpretive Statements SINUS RHYTHM WITH SINUS ARRHYTHMIA NONSPECIFIC T-WAVE ABNORMALITY Compared to ECG 02/23/2022 11:44:57 T-wave abnormality now present Short CT interval no longer present Myocardial infarct finding no longer present Electronically Signed On 02-23-2022 19:27:02 CDT by Jv Mahoney M.D. [id number]
--- NOTE | 2022-02-23 16:52 | PM.HP ---
Providers/Chief Complaint Admitting Physician: Israel Anaya MD Primary Care Provider: Fox Alston Chief Complaint: SYNCOPE History of Present Illness Keith Pennington is a 71 year old male with PMH of A.fib on eliquis , COPD on 2 Ls home oxygen , recurrent syncope, CAD, ?Non-small cell lung cancer metastatic to bone, was brought in with c/o generalized weakness, SOB with productive greenish sputum,going on for some time, denied any fever, chest pain, he also had a fall today at home during which happened during a pre syncopal episode.Patient had stood up got lightheaded dizzy and weak stumbled forward and actually crashed into a wall broke through some of the drywall he has some bruising on his face.There was no loss consciousness.On arrival in the ER he was also requiring more oxygen then his usual baseline oxygen requirent of 2ls , he was needing 4Ls oxygen Pertinent Imaging studies in the ER included. CTA Chest : No .PE Moderate to large rt sided Pleural effusion, C.T Head without Contrst :No acute intra cranial pathology . EKG: SR With Sinus arrhthymia Pertinent Labs : WBC: 12 , H&H : /38 PLT: 573 ,Na : 126 ,K: 5.1 BUN/SCR: 12/0.3 , Troponin T: 16 Review of Systems General: Reports: 10 or more systems reviewed and unremarkable except in HPI and below Const: Denies: fever(s), chills, body aches, change in appetite or diaphoresis Card: Reports: dyspnea on exertion; Denies: palpitations, edema, swelling of feet/ankles or leg pain with exertion Resp: Reports: dyspnea and productive cough; Denies: wheezing or pain on inspiration GI: Denies: abdominal pain, nausea, vomiting, diarrhea or constipation : Denies: flank pain or difficulty urinating Musc: Denies: back pain, extremity pain or extremity swelling Neuro: Denies: headache(s), difficulty walking or confusion Medications/Allergies Home Medications Medication Instructions Recorded Confirmed Last Taken Type amlodipine 10 mg tablet 10 mg PO DAILY 08/05/19 02/23/22 01/14/22 History ibuprofen 800 mg tablet 800 mg PO Q8H PRN Pain 08/05/19 02/23/22 01/11/22 History metformin 500 mg tablet 500 mg PO BID 08/05/19 02/23/22 01/13/22 History tizanidine 4 mg tablet 4 mg PO Q8H PRN Spasms 08/05/19 02/23/22 01/13/22 History nitroglycerin 2.5 mg 2.5 mg PO DAILY 02/07/20 02/23/22 12/17/21 History capsule,extended release omeprazole 20 mg capsule,delayed 20 mg PO BID 03/07/20 02/23/22 01/14/22 History release simvastatin 20 mg tablet 40 mg PO DAILY 03/07/20 02/23/22 01/13/22 History finasteride 5 mg tablet 5 mg PO DAILY 03/07/21 02/23/22 01/13/22 History levetiracetam 500 mg tablet 500 mg PO BID XR is not available 03/28/21 02/23/22 01/13/22 Rx (Lexy) 90 days #180 tabs metoprolol succinate 25 mg 25 mg PO BID #180 tabs 05/04/21 02/23/22 01/13/22 Rx tablet,extended release 24 hr semaglutide 3 mg tablet (Rybelsus) 3 mg PO DAILY 08/03/21 02/23/22 01/13/22 History apixaban 5 mg tablet (Eliquis) 5 mg PO BID #180 tabs 10/12/21 02/23/22 01/11/22 Rx aspirin 81 mg tablet,delayed 81 mg PO DAILY 12/18/21 02/23/22 01/11/22 History release albuterol sulfate 90 mcg/actuation 2 puff inhalation Q6H PRN 01/11/22 02/23/22 01/13/22 History aerosol inhaler Shortness Of Breath budesonide-formoterol HFA 160 1 puff inhalation BID 01/11/22 02/23/22 01/13/22 History mcg-4.5 mcg/actuation aerosol inhaler fluticasone furoate 200 1 inh inhalation DAILY 01/11/22 02/23/22 01/13/22 History mcg-vilanterol 25 mcg/dose inhalation powder (Breo Ellipta) fluoxetine 20 mg capsule (Prozac) 20 mg PO BID 02/11/22 02/23/22 Unknown History fluticasone propionate 50 1 spray intranasal DAILY PRN Nasal 02/11/22 02/23/22 Unknown History mcg/actuation nasal Congestion spray,suspension furosemide 20 mg tablet 20 mg PO QAM 02/11/22 02/23/22 Unknown History morphine 15 mg tablet,extended 15 mg PO Q12H 30 days #60 tabs 02/11/22 02/23/22 Unknown Rx release tamsulosin 0.4 mg capsule 0.4 mg PO BID 02/11/22 02/23/22 Unknown History tiotropium bromide 1.25 2 puff inhalation DAILY 02/11/22 02/23/22 Unknown History mcg/actuation mist for inhalation (Spiriva Respimat) Wheelchair #1 ea 02/20/22 02/23/22 Unknown Rx oxycodone-acetaminophen 5 mg-325 1 - 2 tab PO Q4H PRN pain 02/23/22 02/23/22 Unknown History mg tablet (Percocet) Allergies Allergy/AdvReac Type Severity Reaction Status Date / Time No Known Allergies Allergy Verified 02/11/22 14:39 PFSH Acute PFSH: Medical History Acute respiratory failure with hypoxemia Adenocarcinoma of right lung Asthmatic bronchitis Atrial fibrillation BPH (benign prostatic hyperplasia) BPH w urinary obs/LUTS COPD (chronic obstructive pulmonary disease) Cough syncope Diabetes Dyspnea on exertion Facet arthropathy, lumbar Gross hematuria High cholesterol Intervertebral disc disorder with radiculopathy of lumbar region Kidney lesion Kidney lesion Lumbar compression fracture 12/10/2019 Lumbar stenosis with neurogenic claudication Lung mass Myalgia Non-small cell lung cancer metastatic to bone Positive cardiac stress test Seizure Sinusitis Skin cancer Smoking Spinal stenosis, lumbar region with neurogenic claudication Spondylolisthesis of lumbosacral region Syncope and collapse Tobacco abuse Surgical History History of appendectomy History of eye surgery (~01/18/20) Hx of colonoscopy 5-6 yrs ago Status post placement of implantable loop recorder 12/17/2018 Family History Father , at age 80 CAD (coronary artery disease) Mother , at age 85 CAD (coronary artery disease) Stroke Family/Other CAD (coronary artery disease) Cancer Hyperlipidemia Sister Cancer Social History Smoking and tobacco status: current every day smoker cigarettes Packs smoked per day: 2 Alcohol intake: never Household members: significant other and children Marital status: Life Partner Current occupational status: disabled History of recent travel: No Vitals/I&O/Wt Last Vital Signs Temp 98.1 F 02/23/22 09:49 Pulse 96 02/23/22 15:22 Resp 19 H 02/23/22 15:22 BP 134/82 02/23/22 15:22 Pulse Ox 95 02/23/22 15:22 O2 Del Method 02/23/22 16:23 O2 Flow Rate 2 02/23/22 13:38 02/23/22 02/23/22 02/23/22 06:59 14:59 22:59 Intake Total 1999 Balance 1999 Weight last 48 hrs Weight 92.079 kg Weight 92.079 kg Physical Exam Const: COMMON NORMALS: patient oriented x3 Resp: COMMON NORMALS: clear to auscultation bilaterally EFFORT & INSPECTION: Yes symmetric chest movement OTHER: Bilateral wheezing present in both lung schroeder, diminished air entry at the right lung field particularly at the base Cardio: COMMON NORMALS: regular rate, regular rhythm, S1 normal heart sound present, S2 normal heart sound present, No gallops present (Cardio), No murmurs present (Cardio), No rub (Cardio) and Peripheral pulses 2+ throughout RATE: regular rate RHYTHM: regular rhythm HEART SOUNDS: S1 normal heart sound present and S2 normal heart sound present PERIPHERAL PULSES: Peripheral pulses 2+ throughout GI: COMMON NORMALS: Normal to inspection, nondistended, normoactive bowel sounds present, Soft to palpation, non-tender, No hepatosplenomegaly present and no masses AUSCULTATION: Yes normoactive bowel sounds PALPATION: Yes Soft to palpation and Yes No hepatosplenomegaly present RECTAL EXAM: Yes deferred Extremity: COMMON NORMALS: no clubbing, cyanosis or edema and no pedal edema Neuro: COMMON NORMALS: patient oriented x3 Data : 02/23/22 10:10 02/23/22 10:46 Micro: Microbiology 02/23/22 14:59 Blood Culture - Preliminary Blood SPECIMEN COLLECTED A&P Assessment and plan (1) Non-small cell lung cancer metastatic to bone: Status: Acute (2) Hyponatremia: Status: Acute (3) Pleural effusion: Status: Acute (4) Acute and chronic respiratory failure with hypoxia: Status: Acute Plan 71 year old male with PMH of A.fib on eliquis , COPD on 2 Ls home oxygen , recurrent syncope, CAD, ?Non-small cell lung cancer metastatic to bone, was brought in with c/o generalized weakness, SOB with productive greenish sputum,going on for some time, denied any fever, chest pain, he also had a fall today at home during which happened during a pre syncopal episode.Patient had stood up got lightheaded dizzy and weak stumbled forward and actually crashed into a wall broke through some of the drywall he has some bruising on his face. Assessment: Ac on Chronic Hypoxia likely 2/2 symptomatic Rt pleural effusion as well as possible underlying PNA. Symptomatic Rt pleural effusion Chronic Hypontaremia A.fib on eliquis COPD on 2 Ls home oxygen Recurrent syncope CAD ? Non-small cell lung cancer metastatic to bone Seizure disorder Plan : Follow Blood Culture Sputum Gram stain and culture Plan for thoracentesis with pleural fluid Analysis ( last dose of eliquis this morning ) Supplemental oxygen as needed Duo nebs Continue home inhalers. On Rocephin Monitor BMP Monitor Orthostatic Hypotension Continue Keppra Continue Aspirin, statin Fall Precaution PT On board DVT PPX: Not needed patient iscovered withe Eliquis. Code Status :Full code. Attestations Medical Necessity Statement*: Patient needs to be in hospital for the management of presencope,PNA,Need for I.V ABxs.Anticipated LOS Greater then2 midnights. Time Spent in Patient Care: Greater than 35 minutes (>than 50% of time spent in counselling and/or direct pt care on unit). Coding Level of Care Code Acute [employer] Veget[employer] Worker for g Fwd Exam Detailed Diagnoses Non-small cell lung cancer metastatic to bone C34.90; C79.51 Hyponatremia E87.1 Pleural effusion J90 Acute and chronic respiratory failure with hypoxia J96.21
[2022-02-23] MEDS: sodium chloride 0.9% 1,000 ML 100 ML IV (17:36)
[2022-02-23] MEDS: tamsulosin 0.4 mg Capsule PO (17:38)
[2022-02-23] MEDS: guaiFENesin 600 mg Tablet PO (17:38)
[2022-02-23] MEDS: fluoxetine 20 mg Capsule PO (17:38)
[2022-02-23 17:47] LABS: Troponin 5 6HR 16.21 ng/L (0-15)
[2022-02-23 18:05] LABS: Troponin 5 6HR Delta 1.21 ng/L (0-12)
[2022-02-23] MEDS: ipratropium-albuterol 3 mL Neb INHALATION ×2 (19:54→23:45)
[2022-02-23] MEDS: levETIRAcetam 500 mg Tablet PO (21:02)
[2022-02-24] VITALS (27 sets, daily range): BP systolic 90–116; BP diastolic 47–75; PULSE 94–167; RESP 16–28; TEMP 36.5–36.9; O2SAT 88–95
[2022-02-24] MEDS: sodium chloride 0.9% 1,000 ML 100 ML IV ×2 (03:47→13:25)
[2022-02-24] MEDS: ipratropium-albuterol 3 mL Neb INHALATION ×5 (04:20→23:37)
[2022-02-24 05:24] LABS: Basophils % 0.4 %; Hematocrit 33.1 % (42.0-52.0); Hemoglobin 10.9 g/dL (11.7-16.6); Lymphocytes # 0.3 10^3/uL (0.8-4.8); Lymphocytes % 2.5 %; Mean Corpuscular HGB Conc 32.9 g/dL (30.0-36.0); Mean Corpuscular Hemoglobin 30.4 pg (28.0-34.0); Mean Corpuscular Volume 92.2 fl (80-94); Mean Platelet Volume 8.9 fL (7.4-10.4); Monocytes # 0.6 10^3/uL (0.2-0.9); Monocytes % 5.5 %; Neutrophils # 10.07 10^3/uL (1.8-7.7); Neutrophils % 90.9 %; Nucleated Red Blood Cells % 0 %; Platelet Count 460 10^3/cmm (130-400); Red Blood Count 3.59 10^6/uL (4.1-5.3); Red Cell Distribution Width 15.2 % (12.1-15.1); White Blood Count 11.1 10^3/uL (4.0-10.0)
[2022-02-24 05:52] LABS: Alanine Aminotransferase 6 U/L (0-41); Albumin Level 2.4 g/dL (3.5-5.2); Alkaline Phosphatase 140 IU/L (40-130); Anion Gap 13.1 (5-19); Aspartate Amino Transferase 16 U/L (0-40); Blood Urea Nitrogen 10 mg/dL (8-23); Calcium 8.9 mg/dL (8.5-10.5); Carbon Dioxide 29 mmol/L (22-29); Chloride 91 mmol/L (98-107); Globulin 3.6 g/dL (1.3-4.6); Glomerular Filtration Rate 296.4 mL/min (90-130); Glucose 127 mg/dL (65-115); Magnesium 1.5 mg/dL (1.7-2.3); Osmolality Calculated 269 mOsm/kg (285-295); Potassium 4.1 mmol/L (3.5-5.1); Sodium 129 mmol/L (136-145); Total Bilirubin 0.4 mg/dL (0.15-1.2)
[2022-02-24 06:00] LABS: Procalcitonin 0.14 ng/mL (0-0.5)
[2022-02-24] MEDS: atorvastatin 40 mg Tablet 20 MG PO (09:37)
[2022-02-24] MEDS: cefTRIAXone 1,000 MG in sodium chloride 0.9% (plus) 50 ML 100 MG IV (09:37)
[2022-02-24] MEDS: levETIRAcetam 500 mg Tablet PO ×2 (09:38→20:10)
[2022-02-24] MEDS: guaiFENesin 600 mg Tablet PO ×2 (09:38→17:59)
[2022-02-24] MEDS: tamsulosin 0.4 mg Capsule PO ×2 (09:38→17:59)
[2022-02-24] MEDS: fluoxetine 20 mg Capsule PO ×2 (09:38→17:59)
[2022-02-24] MEDS: aspirin 81 mg EC Tablet PO (13:25)
[2022-02-24] MEDS: FUROsemide 10 mg/mL SDV 2mL 20 MG IVP (15:23)
[2022-02-24] MEDS: dilTIAZem 5 mg/mL SDV 5 mL 10 MG IVP (15:56)
--- NOTE | 2022-02-24 15:58 | PC.NURSE ---
Patient has coarse wheezy breathe sounds. Worsening, audible externally. Respiratory Therapist, Radha was at bedside and was also concerned regarding patient's lung sounds. Dr Anaya was notified and order was obtained for 20 mg IV Lasix ONE TIME and DC fluids. Fluids were discontinued and Lasix was given, patient's heart rate remained 160-170s A Fib with RVR. Dr Anaya notified. Patient given 10mg Cardizem. EKG obtained.
--- NOTE | 2022-02-24 16:24 | PC.NURSE ---
Patient's heart rate remains 160-170 and 88-89% on 10L NC after [address] Anaya notified. Order obtained for 50mg Metoprolol PO ONE TIME NOW.
--- NOTE | 2022-02-24 16:25 | ECG_ITS ---
[facility] Test Date: 2022-02-24 Pat Name: Keith Pennington Department: Room: 267 Gender: Male Career Services Director: : 1950 Requested By: Israel Anaya Order Number: [id number] Selena MD: Jv Mahoney M.D. Measurements Intervals [place] Rate: 161 P: SD: QRS: 51 QRSD: 89 T: 0 QT: 264 QTc: 433 Interpretive Statements ATRIAL FIBRILLATION WITH RAPID VENTRICULAR RESPONSE NONSPECIFIC ST & T-WAVE ABNORMALITY CRITICAL TEST RESULT INTERPRETATION BASED ON A DEFAULT AGE OF 40 YEARS Compared to ECG 02/23/2022 15:49:03 Sinus rhythm no longer present Sinus arrhythmia no longer present T-wave abnormality still present Electronically Signed On 02-24-2022 19:06:17 CDT by Jv Mahoney M.D. [email or web address]
[2022-02-24] MEDS: metoprolol succinate ER (24 HR) 50 mg Tablet PO (16:34)
--- NOTE | 2022-02-24 16:44 | PM.PN ---
Subjective Subjective: Patient was seen and examined this morning, was complaining of weakness, later towards the day he went into A,fib with RVR receieved CArdizem 10 mg I.V *1 Dose as well as 50 mg of metoprolol po one dose but his H/R has Medications: Medication Review Details: Generic Name Dose Route Start Last Admin Trade Name Sushma PRN Reason Stop Dose Admin Albuterol/Ipratrop ium 3 ml 02/23/22 20:00 02/24/22 15:01 Ipratropium-Albu terol 3 Ml Neb INHALATION 3 ml Q4H.RESPIRATORY S CH Administration Aspirin 81 mg 02/24/22 09:00 02/24/22 13:25 Aspirin 81 Mg Ec Tablet PO 81 mg DAILY CATHI Administration Atorvastatin Calci um 20 mg 02/24/22 09:00 02/24/22 09:37 Atorvastatin 40 Mg Tablet PO 20 mg DAILY CATHI Administration Fluoxetine HCl 20 mg 02/23/22 18:00 02/24/22 09:38 Fluoxetine 20 Mg Capsule PO 20 mg BID CATHI Administration Guaifenesin 600 mg 02/23/22 18:00 02/24/22 09:38 Guaifenesin 600 Mg Tablet PO 600 mg BID CATHI Administration Ceftriaxone Sodium 1,000 mg/ 50 mls @ 100 mls/ hr 02/24/22 07:00 02/24/22 10:20 Sodium Chloride IV Infused Q24H CATHI Infusion Protocol Levetiracetam 500 mg 02/23/22 21:00 02/24/22 09:38 Levetiracetam 50 0 Mg Tablet PO 500 mg BID@0900,2100 CATHI Administration Fluticasone/[place] 1 puff 02/23/22 20:00 02/24/22 08:06 Fluticasone-Salm eterol 250-50 Disk us INHALATION 1 puff BID.RESPIRATORY S CH Administration Tamsulosin HCl 0.4 mg 02/23/22 18:00 02/24/22 09:38 Tamsulosin 0.4 M g Capsule PO 0.4 mg BID CATHI Administration Vitals/I&O/Wt Last Vital Signs Temp 98.5 F 02/24/22 12:00 Pulse 161 H 02/24/22 16:25 Resp 24 H 02/24/22 15:01 BP 93/55 02/24/22 16:24 Pulse Ox 93 02/24/22 15:01 O2 Del Method 02/24/22 15:01 O2 Flow Rate 4 02/24/22 15:01 02/24/22 02/24/22 02/24/22 06:59 14:59 22:59 Intake Total 1000 / 3440 1013.333 / 2445.114 3670 / 2013.333 Output Total 200 / 750 Balance 800 / 2690 1013.333 / 6413.191 3091 / 2013.333 Weight last 48 hrs Weight 92.079 kg Weight 92.079 kg Physical Exam Const: COMMON NORMALS: patient oriented x3 Resp: COMMON NORMALS: clear to auscultation bilaterally EFFORT & INSPECTION: Yes symmetric chest movement AUSCULTATION: clear to auscultation bilaterally OTHER: Bilateral wheezing present in both lung schroeder, diminished air entry at the right lung field particularly at the base Tachypenic,tachycardic, Cardio: COMMON NORMALS: regular rate, regular rhythm, S1 normal heart sound present, S2 normal heart sound present, No gallops present (Cardio), No murmurs present (Cardio), No rub (Cardio) and Peripheral pulses 2+ throughout RATE: regular rate RHYTHM: regular rhythm HEART SOUNDS: S1 normal heart sound present and S2 normal heart sound present PERIPHERAL PULSES: Peripheral pulses 2+ throughout GI: COMMON NORMALS: Normal to inspection, nondistended, normoactive bowel sounds present, Soft to palpation, non-tender, No hepatosplenomegaly present and no masses AUSCULTATION: Yes normoactive bowel sounds PALPATION: Yes Soft to palpation and Yes No hepatosplenomegaly present RECTAL EXAM: Yes deferred Extremity: COMMON NORMALS: no clubbing, cyanosis or edema and no pedal edema Neuro: COMMON NORMALS: patient oriented x3 Data : 02/24/22 04:40 02/24/22 04:40 Micro: Microbiology 02/23/22 10:59 Legionella Urinary Antigen - Final Urine,Clean Catch Bacterial Antigens - Final 02/23/22 14:59 Blood Culture - Preliminary Blood NEGATIVE TO DATE 02/23/22 14:00 Gram Stain - Final Sputum - Expectorated Sputum Sputum Culture - Preliminary 02/23/22 10:59 Urine Culture - Preliminary Urine,Clean Catch 02/23/22 19:25 Blood Culture - Preliminary Blood SPECIMEN COLLECTED A&P Assessment and plan (1) Non-small cell lung cancer metastatic to bone: Status: Acute (2) Hyponatremia: Status: Acute (3) Pleural effusion: Status: Acute (4) Acute and chronic respiratory failure with hypoxia: Status: Acute Plan 71 year old male with PMH of A.fib on eliquis , COPD on 2 Ls home oxygen , recurrent syncope, CAD, ?Non-small cell lung cancer metastatic to bone, was brought in with c/o generalized weakness, SOB with productive greenish sputum,going on for some time, denied any fever, chest pain, he also had a fall today at home during which happened during a pre syncopal episode.Patient had stood up got lightheaded dizzy and weak stumbled forward and actually crashed into a wall broke through some of the drywall he has some bruising on his face. Assessment: Afib with RVR: Ac on Chronic Hypoxic r/f likely 2/2 symptomatic Rt pleural effusion as well as possible underlying PNA. Symptomatic Rt pleural effusion Chronic Hypontaremia A.fib on eliquis COPD on 2 Ls home oxygen Recurrent syncope CAD ? Non-small cell lung cancer metastatic to bone: on Radiation therapy ( M-F ) Lat session last week , due next week. Seizure disorder Plan : Follow Blood Culture Sputum Gram stain and culture : MRSA PCR: On Cardizem Drip Plan for thoracentesis with pleural fluid Analysis ( last dose of eliquis On friday Morning ) Eliquis on hold for Thoracentesis Supplemental oxygen as needed Duo nebs Continue home inhalers. On Rocephin and Vancomycin Monitor BMP Monitor Orthostatic Hypotension Continue Keppra Continue Aspirin, statin Fall Precaution PT On board DVT PPX: On SCDS Code Status :Full code. Attestations Medical Necessity Statement*: Patient needs to be in hospital for the mnagement of A.Fib with Rvr. Time Spent in Patient Care: Greater than 35 minutes (>than 50% of time spent in counselling and/or direct pt care on unit). Coding Level of Care Code Acute Textile Conservator for g Fwd Exam Detailed Diagnoses Non-small cell lung cancer metastatic to bone C34.90; C79.51 Hyponatremia E87.1 Pleural effusion J90 Acute and chronic respiratory failure with hypoxia J96.21
[2022-02-24] MEDS: acetaminophen 325 mg Tablet 650 MG PO (18:21)
[2022-02-24] MEDS: digoxin 250 mcg/ml INJ 2 mL 500 MCG IVP (19:19)
--- NOTE | 2022-02-24 19:35 | PC.NURSE ---
Patient heart rate remained uncontrolled A FIB with RVR. Patient started on Cardizem drip and transferred to CSU room for bedside monitoring.
--- NOTE | 2022-02-24 20:01 | PC.NURSE ---
Started Cardizem drip At 1745 w/ starting dose of 7.5 mls/hr per Dr. Anaya. Pt denies any chest discomfort or increasing SOB. Pt lung sounds is wheezy on 11 L of high flow O2. Monitored pt at bedside. Dr notified that pt cardizem drip is titrated per protocol. 1815-pt is on 15 mls/hr cardizem drip. Bp is w/in normal. HR-140s to 150s. 1899-Dr Anaya at pt's bedside and he verbal order that he will put orders for Digoxin.
--- NOTE | 2022-02-24 20:10 | PC.NURSE ---
pt converted to Sinus Rhythm per park interpreter. HR ranges from upper 90s, sometime between 1945 to 2000 pm.
[2022-02-24] MEDS: acetylcysteine 200 mg/mL SDV 4 mL INHALATION (23:37)
[2022-02-25] VITALS (52 sets, daily range): BP systolic 90–141; BP diastolic 56–82; PULSE 90–113; RESP 15–20; TEMP 36.6–36.8; O2SAT 88–96
[2022-02-25] MEDS: acetylcysteine 200 mg/mL SDV 4 mL INHALATION ×5 (03:50→21:36)
[2022-02-25] MEDS: ipratropium-albuterol 3 mL Neb INHALATION ×3 (03:51→12:10)
[2022-02-25 05:04] LABS: Alanine Aminotransferase < 5 U/L (0-41); Albumin Level 2.4 g/dL (3.5-5.2); Alkaline Phosphatase 151 IU/L (40-130); Anion Gap 16.7 (5-19); Aspartate Amino Transferase 19 U/L (0-40); Blood Urea Nitrogen 12 mg/dL (8-23); Calcium 9.2 mg/dL (8.5-10.5); Carbon Dioxide 27 mmol/L (22-29); Chloride 92 mmol/L (98-107); Globulin 3.8 g/dL (1.3-4.6); Glucose 165 mg/dL (65-115); Magnesium 1.7 mg/dL (1.7-2.3); Osmolality Calculated 275 mOsm/kg (285-295); Potassium 4.7 mmol/L (3.5-5.1); Sodium 131 mmol/L (136-145); Total Bilirubin 0.5 mg/dL (0.15-1.2); Total Protein 6.2 g/dL (6.6-8.7)
[2022-02-25] MEDS: cefTRIAXone 1,000 MG in sodium chloride 0.9% (plus) 50 ML 100 MG IV (06:03)
[2022-02-25] MEDS: FUROsemide 10 mg/mL SDV 4mL 40 MG IVP (06:03)
[2022-02-25 06:36] LABS: INR 1.14 (0.8-1.2)
--- NOTE | 2022-02-25 07:00 | US_ITS ---
WS: [id number] ULTRASOUND-GUIDED THORACENTESIS CLINICAL INFORMATION: Rt Pleural Effusion COMPARISON: None. PROCEDURE: Informed consent: The risks, benefits, and alternatives of the procedure were discussed with the angela ent. Verbal and written consent was obtained. Timeout: A timeout was performed to confirm the correct patient, procedure, and site. Site: RIGHT chest Preparation: A suitable skin site was identified. The patient was prepped and draped in usual sterile fashion. Lidocaine 1% was used for local anesthesia. Catheter: 4 Turk[place] One-Step catheter. Fluid Volume: 1100 ml Color: Shelby Fluid sent to the laboratory for further analysis.. Complications: None. / thoracentesis [id number] IMPRESSION: Uncomplicated ultrasound-guided thoracentesis with removal of 1100 cc.
[2022-02-25] MEDS: levETIRAcetam 500 mg Tablet PO ×2 (08:36→20:25)
[2022-02-25] MEDS: tamsulosin 0.4 mg Capsule PO ×2 (08:36→17:47)
[2022-02-25] MEDS: guaiFENesin 600 mg Tablet PO ×2 (08:36→17:47)
[2022-02-25] MEDS: fluoxetine 20 mg Capsule PO ×2 (08:36→17:47)
[2022-02-25] MEDS: metoprolol succinate ER (24 HR) 25 mg Tablet 50 MG PO (08:36)
[2022-02-25] MEDS: atorvastatin 40 mg Tablet 20 MG PO (08:37)
[2022-02-25] MEDS: aspirin 81 mg EC Tablet PO (08:37)
--- NOTE | 2022-02-25 11:28 | XR_ITS ---
WS: [id number] XR chest 1V portable [id number] REASON FOR EXAM: post thoracentesis FINDINGS: Near complete opacification of the right chest with shift of the mediastinal structures to the right. Presumably this represents some remnant pleural fluid and extensive lung collapse secondary to the ob structing carcinoma in the right chest with failure of reexpansion after removal of the pleural fluid . No air is identified in the right pleural space. XR/XR chest 1V portable [id number] IMPRESSION: There is almost no aerated lung in the right chest as above. No hydropneumothorax is identified. As warranted a left lateral decubitus chest x-ray could be obtained.
[2022-02-25 12:14] LABS: Mononuclear %, Pleural Fluid 93 %; Polynuclear Cells, Pleural % 7 %
[2022-02-25 12:17] LABS: Appearance, Pleural Fluid CLOUDY (CLEAR); Color, Pleural Fluid Pale Yellow (Pale Yellow)
[2022-02-25 12:49] LABS: Pleural Fluid Albumin 1.2 g/dL
[2022-02-25 12:50] LABS: LDH Pleural Fluid 386 U/L; Total Protein Pleural Fluid 3.6 g/dL
[2022-02-25 14:18] LABS: PATH Referal YES
[2022-02-25] MEDS: levalbuterol 0.63 mg/3 mL Neb INHALATION ×2 (15:09→21:37)
[2022-02-25] MEDS: ipratropium 0.5 mg/2.5 mL Neb INHALATION ×2 (15:10→21:38)
--- NOTE | 2022-02-25 16:55 | PM.PN ---
Subjective Subjective: Hospital course, labs appreciated. Today morning seen after thoracentesis. 1100 cc of fluid was drained. Thoracentesis uneventful. On examination early in the morning patient was on 10 L high flow nasal cannula which was turned down to 6 L with saturation over 90%. Patient states he is feeling little better. Has been off Cardizem since midnight last night. Patient's heart rate running between 100-110. As per the nurse patient is having robust urine output. Vitals/I&O/Wt Last Vital Signs Temp 98.3 F 02/25/22 15:40 Pulse 112 H 02/25/22 15:40 Resp 17 02/25/22 15:40 BP 112/63 02/25/22 15:40 Pulse Ox 91 02/25/22 15:40 O2 Del Method 02/25/22 15:11 O2 Flow Rate 6 02/25/22 15:11 02/25/22 02/25/22 02/25/22 06:59 14:59 22:59 Intake Total 50 / 0.875 240 / 240 Balance 50 / 2009.875 240 / 240 Physical Exam Const: COMMON NORMALS: patient oriented x3 Resp: COMMON NORMALS: clear to auscultation bilaterally EFFORT & INSPECTION: Yes symmetric chest movement AUSCULTATION: clear to auscultation bilaterally OTHER: Bilateral wheezing present in both lung schroeder, diminished air entry at the right lung field particularly at the base Cardio: COMMON NORMALS: regular rate, regular rhythm, S1 normal heart sound present, S2 normal heart sound present, No gallops present (Cardio), No murmurs present (Cardio), No rub (Cardio) and Peripheral pulses 2+ throughout RATE: regular rate RHYTHM: regular rhythm HEART SOUNDS: S1 normal heart sound present and S2 normal heart sound present PERIPHERAL PULSES: Peripheral pulses 2+ throughout GI: COMMON NORMALS: Normal to inspection, nondistended, normoactive bowel sounds present, Soft to palpation, non-tender, No hepatosplenomegaly present and no masses AUSCULTATION: Yes normoactive bowel sounds PALPATION: Yes Soft to palpation and Yes No hepatosplenomegaly present RECTAL EXAM: Yes deferred Extremity: COMMON NORMALS: no clubbing, cyanosis or edema and no pedal edema Neuro: COMMON NORMALS: patient oriented x3 Data : 02/24/22 04:40 02/25/22 03:43 Micro: Microbiology 02/25/22 11:30 Gram Stain - Final Thoracic Fluid 02/23/22 14:00 Gram Stain - Final Sputum - Expectorated Sputum Sputum Culture - Final 02/23/22 10:59 Urine Culture - Final Urine,Clean Catch 02/23/22 19:25 Blood Culture - Preliminary Blood NEGATIVE TO DATE 02/23/22 10:59 Legionella Urinary Antigen - Final Urine,Clean Catch Bacterial Antigens - Final 02/23/22 14:59 Blood Culture - Preliminary Blood NEGATIVE TO DATE A&P Assessment and plan (1) Acute and chronic respiratory failure with hypoxia: Status: Acute (2) Pleural effusion: Status: Acute (3) Non-small cell lung cancer metastatic to bone: Status: Acute (4) Hyponatremia: Status: Acute (5) Pneumonia: Status: Acute (6) Atrial fibrillation: Status: Acute Qualifiers: Atrial fibrillation type: paroxysmal Qualified Code(s): I48.0 - Paroxysmal atrial fibrillation Plan 71 year old male with PMH of A.fib on eliquis , COPD on 2 Ls home oxygen , recurrent syncope, CAD, ?Non-small cell lung cancer metastatic to bone on radiation therapy, was brought in with c/o generalized weakness, SOB with productive greenish sputum,going on for some time, denied any fever, chest pain, he also had a fall today at home during which happened during a pre syncopal episode. Acute on chronic hypoxic respiratory failure secondary to symptomatic significant right pleural effusion, possible underlying pneumonia, COPD exacerbation with baseline non-small cell lung Carcinoma on radiation therapy. Postthoracentesis. 1100 cc drained. Follow-up fluid studies. Follow-up sputum culture, blood culture, fluid culture. Check MRSA swab. Switch to Zosyn. Stop ceftriaxone. #Past earlier this year negative. Urine Legionella, bacterial antigen negative. For COPD exacerbation: Continue with methylprednisone 40 mg IV twice daily. Will wean accordingly. Start on ipratropium, Xopenex every 6 hour, budesonide twice daily. Oxygen supplementation keeping saturation over 88%. History of diastolic dysfunction. EF 50 to 55% on last echocardiogram from November 2021. Continue IV Lasix 40 mg once daily for now. Strict input output charting, daily weights. Atrial fibrillation with rapid ventricular response: Takes metoprolol 25 mg twice daily at home. For now switch to metoprolol tartrate 75 mg twice daily. Cardizem drip stopped overnight. Will restart Eliquis from evening as patient is postthoracentesis for anticoagulation. Presyncope: Could be secondary to hypoxia. Check orthostatics. Monitor blood pressures accordingly. Continue the chronic medications. PT evaluation. PUD prophylaxis: Protonix DVT PPX: On SCDS, Eliquis Code Status :Full code. Attestations Medical Necessity Statement*: Requires further hospitalization for management of acute on chronic hypoxic respiratory failure, significant right pleural effusion, COPD exacerbation with baseline non-small lung carcinoma Time Spent in Patient Care: Greater than 35 minutes Coding Level of Care Code Acute [employer] Supervisor for [facility] Fwd Diagnoses Acute and chronic respiratory failure with hypoxia J96.21 Pleural effusion J90 Non-small cell lung cancer metastatic to bone C34.90; C79.51 Hyponatremia E87.1 Pneumonia J18.9 Atrial fibrillation I48.0 Atrial fibrillation type: paroxysmal
[2022-02-25] MEDS: piperacillin-tazobactam 3.375 GM in sodium chloride 0.9% (plus) 50 ML IV (19:27)
[2022-02-25] MEDS: metoprolol tartrate 50 mg Tablet 75 MG PO (20:25)
[2022-02-25] MEDS: apixaban 5 mg Tablet PO (20:25)
[2022-02-25 20:33] LABS: Cyto Order Verification No Order
[2022-02-25] MEDS: oxyCODONE-APAP 5-325 mg Tablet 1 TAB PO (20:33)
--- NOTE | 2022-02-25 21:13 | CTR_ITS ---
PROCEDURE INFORMATION: Exam: CT Chest Without Contrast; Diagnostic Exam date and time: 02/25/2022 10:11 PM Age: 72 years old Clinical indication: Shortness of breath; Prior surgery; Surgery type: Loop recorder. Patient HX: Persistent SOB. Thoracentesis performed this morning. History of small cell lung cancer w/bone mets. TECHNIQUE: Imaging protocol: Diagnostic computed tomography of the chest without contrast. Radiation optimization: All CT scans at this facility use at least one of these dose optimization techniques: automated exposure control; mA and/or kV adjustment per patient size (includes targeted exams where dose is matched to clinical indication); or iterative reconstruction. COMPARISON: CT angio chest PE protcl [id number] 02/23/2022 3:16 PM RADIATION DOSE METRICS: Total DLP (mGy-cm): 563.81 FINDINGS: Lungs: Moderate to large right pleural effusion with diffuse right lung airspace opacifications similar to prior exam may reflect atelectasis, however, diffuse involvement by lung tumor and/or pneumonia is also a consideration. Pleural spaces: See Lungs finding. Heart: Coronary artery atherosclerotic calcifications. Lymph nodes: Several prominent subcentimeter sentinel lymph nodes measuring up to 7.4 mm, nonspecific. Vasculature: Unremarkable. No aortic aneurysm. Left-sided Port-A-Cath Bones/joints: Multilevel chronic wedge shaped compression fractures again seen throughout the spine, some of which appear sclerotic along with several additional sclerotic bony lesions in the spine, specifically at T3, T4 and T5, concerning for metastatic disease, whole body nuclear medicine bone scan could further evaluate this. Several chronic right posterior rib fractures with possible underlying sclerotic bony lesions at ribs 6 and 7. Soft tissues: Unremarkable. CT/CT chest wo con [id number] IMPRESSION: 1. Moderate to large right pleural effusion with diffuse right lung airspace opacifications similar to prior exam may reflect atelectasis, however, diffuse involvement by lung tumor and/or pneumonia is also a consideration. 2. Coronary artery atherosclerotic calcifications. 3. Several prominent subcentimeter sentinel lymph nodes measuring up to 7.4 mm, nonspecific. 4. Multilevel chronic wedge shaped compression fractures again seen throughout the spine, some of which appear sclerotic along with several additional sclerotic bony lesions in the spine, specifically at T3, T4 and T5, concerning for metastatic disease, whole body nuclear medicine bone scan could further evaluate this. 5. Several chronic right posterior rib fractures with possible underlying sclerotic bony lesions at ribs 6 and 7.
[2022-02-25] MEDS: budesonide 0.5 mg/2 mL Neb 0.25 MG INHALATION (21:37)
[2022-02-26] VITALS (16 sets, daily range): BP systolic 66–133; BP diastolic 34–88; PULSE 84–104; RESP 16–23; TEMP 36.4–36.7; O2SAT 87–96
[2022-02-26] MEDS: levalbuterol 0.63 mg/3 mL Neb INHALATION ×4 (01:52→20:31)
[2022-02-26] MEDS: ipratropium 0.5 mg/2.5 mL Neb INHALATION ×4 (01:52→20:31)
[2022-02-26] MEDS: acetylcysteine 200 mg/mL SDV 4 mL INHALATION ×3 (01:52→20:32)
[2022-02-26] MEDS: piperacillin-tazobactam 3.375 GM in sodium chloride 0.9% (plus) 50 ML IV ×3 (01:56→17:51)
[2022-02-26 03:28] LABS: Basophils % 0.1 %; Eosinophils % 0.1 %; Hematocrit 35.5 % (42.0-52.0); Hemoglobin 11.6 g/dL (11.7-16.6); Lymphocytes # 0.1 10^3/uL (0.8-4.8); Lymphocytes % 1.5 %; Mean Corpuscular HGB Conc 32.7 g/dL (30.0-36.0); Mean Corpuscular Hemoglobin 30.6 pg (28.0-34.0); Mean Corpuscular Volume 93.7 fl (80-94); Mean Platelet Volume 9.1 fL (7.4-10.4); Monocytes # 0.4 10^3/uL (0.2-0.9); Monocytes % 3.9 %; Neutrophils # 8.73 10^3/uL (1.8-7.7); Neutrophils % 93.5 %; Nucleated Red Blood Cells % 0 %; Platelet Count 453 10^3/cmm (130-400); Red Blood Count 3.79 10^6/uL (4.1-5.3); Red Cell Distribution Width 15.9 % (12.1-15.1); White Blood Count 9.3 10^3/uL (4.0-10.0)
[2022-02-26 03:48] LABS: Alanine Aminotransferase 14 U/L (0-41); Albumin Level 2.2 g/dL (3.5-5.2); Alkaline Phosphatase 155 IU/L (40-130); Blood Urea Nitrogen 19 mg/dL (8-23); Carbon Dioxide 31 mmol/L (22-29); Chloride 92 mmol/L (98-107); Globulin 3.6 g/dL (1.3-4.6); Glucose 200 mg/dL (65-115); Magnesium 1.7 mg/dL (1.7-2.3); Osmolality Calculated 280 mOsm/kg (285-295); Sodium 131 mmol/L (136-145); Total Bilirubin 0.4 mg/dL (0.15-1.2); Total Protein 5.8 g/dL (6.6-8.7)
[2022-02-26 04:21] LABS: Anion Gap 12.9 (5-19); Aspartate Amino Transferase 40 U/L (0-40); Potassium 4.9 mmol/L (3.5-5.1)
[2022-02-26] MEDS: FUROsemide 10 mg/mL SDV 4mL 40 MG IVP (06:03)
[2022-02-26] MEDS: tamsulosin 0.4 mg Capsule PO (08:29)
[2022-02-26] MEDS: aspirin 81 mg EC Tablet PO (08:29)
[2022-02-26] MEDS: apixaban 5 mg Tablet PO (08:29)
[2022-02-26] MEDS: atorvastatin 40 mg Tablet 20 MG PO (08:29)
[2022-02-26] MEDS: levETIRAcetam 500 mg Tablet PO ×2 (08:30→20:49)
[2022-02-26] MEDS: guaiFENesin 600 mg Tablet PO ×2 (08:30→17:51)
[2022-02-26] MEDS: fluoxetine 20 mg Capsule PO ×2 (08:30→17:51)
[2022-02-26] MEDS: metoprolol tartrate 50 mg Tablet 75 MG PO ×2 (08:35→20:49)
[2022-02-26] MEDS: budesonide 0.5 mg/2 mL Neb 0.25 MG INHALATION ×2 (08:46→20:31)
--- NOTE | 2022-02-26 11:49 | PC.NURSE ---
Nurse was in the room when i was doing orthos. standing
--- NOTE | 2022-02-26 12:38 | PM.PN ---
Subjective Subjective: No acute events overnight. Patient today morning seen sitting up in chair. States feeling a lot better. Denies any nausea, vomiting, headache. Turned down to 5 L HFNC which is his baseline oxygen supplementation. During the day while checking orthostatics he was found to be positive with mild symptoms. Patient otherwise denies any nausea, vomiting, headache. Appetite appropriate. Vitals/I&O/Wt Last Vital Signs Temp 97.7 F 02/26/22 11:48 Pulse 94 02/26/22 11:55 Resp 18 02/26/22 11:55 BP 125/88 02/26/22 11:55 Pulse Ox 92 02/26/22 11:55 O2 Del Method 02/26/22 11:55 O2 Flow Rate 6 02/26/22 11:55 02/25/22 02/26/22 02/26/22 22:59 06:59 14:59 Intake Total 840 / 1080 460 / 1540 Output Total 300 / 300 950 / 950 Balance 840 / 1080 160 / 1240 -950 / -950 Physical Exam Const: COMMON NORMALS: patient oriented x3 Resp: COMMON NORMALS: clear to auscultation bilaterally EFFORT & INSPECTION: Yes symmetric chest movement AUSCULTATION: clear to auscultation bilaterally OTHER: Bilateral wheezing present in both lung schroeder, diminished air entry at the right lung field particularly at the base Cardio: COMMON NORMALS: regular rate, regular rhythm, S1 normal heart sound present, S2 normal heart sound present, No gallops present (Cardio), No murmurs present (Cardio), No rub (Cardio) and Peripheral pulses 2+ throughout RATE: regular rate RHYTHM: regular rhythm HEART SOUNDS: S1 normal heart sound present and S2 normal heart sound present PERIPHERAL PULSES: Peripheral pulses 2+ throughout GI: COMMON NORMALS: Normal to inspection, nondistended, normoactive bowel sounds present, Soft to palpation, non-tender, No hepatosplenomegaly present and no masses AUSCULTATION: Yes normoactive bowel sounds PALPATION: Yes Soft to palpation and Yes No hepatosplenomegaly present RECTAL EXAM: Yes deferred Extremity: COMMON NORMALS: no clubbing, cyanosis or edema and no pedal edema Neuro: COMMON NORMALS: patient oriented x3 Data : 02/26/22 02:53 02/26/22 02:53 Micro: Microbiology 02/25/22 11:30 Gram Stain - Final Thoracic Fluid Body Fluid Culture - Preliminary 02/23/22 14:00 Gram Stain - Final Sputum - Expectorated Sputum Sputum Culture - Final 02/23/22 10:59 Urine Culture - Final Urine,Clean Catch A&P Assessment and plan (1) Acute and chronic respiratory failure with hypoxia: Status: Acute (2) Pleural effusion: Status: Acute (3) Non-small cell lung cancer metastatic to bone: Status: Acute (4) Hyponatremia: Status: Acute (5) Pneumonia: Status: Acute (6) Atrial fibrillation: Status: Acute Qualifiers: Atrial fibrillation type: paroxysmal Qualified Code(s): I48.0 - Paroxysmal atrial fibrillation (7) Orthostatic hypotension: Status: Acute Plan 71 year old male with PMH of A.fib on eliquis , COPD on 2 Ls home oxygen , recurrent syncope, CAD, ?Non-small cell lung cancer metastatic to bone on radiation therapy, was brought in with c/o generalized weakness, SOB with productive greenish sputum,going on for some time, denied any fever, chest pain, he also had a fall today at home during which happened during a pre syncopal episode. Acute on chronic hypoxic respiratory failure secondary to symptomatic significant right pleural effusion, possible underlying pneumonia, COPD exacerbation with baseline non-small cell lung Carcinoma on radiation therapy. Post- thoracentesis. 1100 cc drained. Fluid studies consistent with exudative. Follow-up cultures. Can be secondary to malignancy. Follow-up sputum culture, blood culture, fluid culture. MRSA negative. C/w Zosyn. Urine Legionella, bacterial antigen negative. Appreciate repeat CT chest without contrast postthoracentesis. Will consult pulmonology to see if he needs Pleurx catheter placement. For COPD exacerbation: Wean Solu-Medrol to 40 mg IV daily. Continue with ipratropium, Xopenex every 6 hour, budesonide twice daily. Oxygen supplementation keeping saturation over 88%. History of diastolic dysfunction. EF 50 to 55% on last echocardiogram from November 2021. Patient is euvolemic to mildly dehydrated. Hold off on IV Lasix. Normal saline at 50 cc/h for 1 bag. Strict input output charting, daily weights. Orthostatic hypotension: Could be secondary to diuresis along with fluid loss from thoracentesis. Given chronic issues including malignancy, atrial fibrillation, diastolic heart failure patient would need on and off diuresis and thoracentesis. Start on midodrine 5 mg oral 3 times daily. Will uptitrate for wean of given systolic blood pressures of 140/90 mmHg. Decrease dose of Flomax to 0.4 mg once a day. Atrial fibrillation with rapid ventricular response: Takes metoprolol 25 mg twice daily at home. Continue with metoprolol tartrate 75 mg twice daily. Cardizem drip stopped overnight. Will restart Eliquis from evening as patient is postthoracentesis for anticoagulation. Presyncope: Secondary to orthostatic hypotension Monitor blood pressures accordingly. Continue the chronic medications. PT evaluation. PUD prophylaxis: Protonix DVT PPX: On SCDS, Eliquis Code Status :Full code. Attestations Medical Necessity Statement*: Requires further hospitalization for management of acute on chronic hypoxic respiratory failure secondary to pleural effusion in setting of non-small cell lung carcinoma, orthostatic hypotension Time Spent in Patient Care: Greater than 35 minutes Coding Level of Care Code Acute Allied Health Professional for [facility] Diagnoses Acute and chronic respiratory failure with hypoxia J96.21 Pleural effusion J90 Non-small cell lung cancer metastatic to bone C34.90; C79.51 Hyponatremia E87.1 Pneumonia J18.9 Atrial fibrillation I48.0 Atrial fibrillation type: paroxysmal Orthostatic hypotension I95.1
[2022-02-26] MEDS: sodium chloride 0.9% 1,000 ML 50 ML IV (14:29)
[2022-02-26] MEDS: midodrine 5 mg TABLET PO ×2 (14:29→20:49)
--- NOTE | 2022-02-26 14:48 | PM.CONSULT ---
Providers/Reason For Consult Consulting Physician/Specialty*: Pulmonary critical care medicine Reason for Consult*: Right-sided pleural effusion in a patient with recently diagnosed non-small cell lung cancer Requesting Physician: Dr. Hernandez Attending Physician: Yinka Hernandez MD Primary Care Provider: Fox Alston History of Present Illness History of Present Illness Keith Pennington is a 72 year old male with recent diagnosis of non-small cell lung cancer. I had initially evaluated the patient in November 2021. He underwent bronchoscopic evaluation on December 18 and was diagnosed with adenocarcinoma of the lung. The endobronchial biopsy from right upper lobe and station 4R and 10 R were all positive. There was mucosal irregularity and narrowing of the right upper lobe segmental bronchi. At that time, no abnormalities were identified in the right middle lobe or lower lobe bronchus. Mucus was noted throughout the airways. Second PET CT scan revealed diffuse metastatic disease including bony involvement. No brain mets were found on the CT scan of the head in December 2021. The patient is currently receiving radiation therapy. The plan is to start him on chemotherapy and immunotherapy. So far he has received 5 sessions of radiation therapy. The patient has a diagnosis of atrial fibrillation on Eliquis, COPD, chronic hypoxic respiratory failure, and then active smoker.? The patient also recently had a positive stress test and was supposed to get cardiac catheterization. However, this has not been done as he was diagnosed with metastatic lung cancer. The patient presented to the hospital on February 23 after sustaining a fall. The patient also complained of generalized weakness, greenish sputum production and worsening shortness of breath. In the emergency department, the patient underwent a CT angiogram which did not reveal any pulmonary embolism but the patient was found to have a large right-sided pleural effusion. The patient underwent thoracentesis on February 25 with 1100 cc of fluid removal. In November, the patient did have a small right-sided pleural effusion which was not drained. The pleural fluid study showed lymphocyte predominant exudative pleural effusion. This is likely secondary to malignant pleural effusion. The cytology report is not back yet. The patient had a repeat CT scan of the chest yesterday. The CT scan revealed large right-sided pleural effusion. The right lower lobe is atelectatic. There is also no significant air movement in the right middle lobe and there is narrowing of the right lower lobe bronchi. It is unclear whether the patient has developed mucous plugging or this is spread of the malignancy causing airway occlusion and atelectasis. The patient was seen and examined. The patient tells me his shortness of breath is better than when he had come in. He did feel better after the fluid was drained. He is complaining of cough, sputum production, exertional shortness of breath. The patient is wondering if he can go get his radiation therapy. He is currently on broad-spectrum antibiotic. His WBC count has come down. Creatinine stable. Review of Systems Narrative: General: No fevers or chills Skin: No rash HEENT: No nasal congestion, rhinitis, sinusitis, sneezing Neck: There is no neck swelling Respiratory: Cough, sputum production, wheezing and exertional shortness of breath Cardiovascular: No chest pain, orthopnea or paroxysmal nocturnal dyspnea Gastrointestinal: No abdominal pain, nausea, vomiting Musculoskeletal: Generalized weakness Neurological: Patient is awake alert and oriented x3, no paralysis, gross motor function is normal. Psychiatric: No anxiety or depression. Medications/Allergies Home Medications Medication Instructions Recorded Confirmed Last Taken Type amlodipine 10 mg tablet 10 mg PO DAILY 08/05/19 02/23/22 01/14/22 History ibuprofen 800 mg tablet 800 mg PO Q8H PRN Pain 08/05/19 02/23/22 01/11/22 History metformin 500 mg tablet 500 mg PO BID 08/05/19 02/23/22 01/13/22 History tizanidine 4 mg tablet 4 mg PO Q8H PRN Spasms 08/05/19 02/23/22 01/13/22 History nitroglycerin 2.5 mg 2.5 mg PO DAILY 02/07/20 02/23/22 12/17/21 History capsule,extended release omeprazole 20 mg capsule,delayed 20 mg PO BID 03/07/20 02/23/22 01/14/22 History release simvastatin 20 mg tablet 40 mg PO DAILY 03/07/20 02/23/22 01/13/22 History finasteride 5 mg tablet 5 mg PO DAILY 03/07/21 02/23/22 01/13/22 History levetiracetam 500 mg tablet 500 mg PO BID XR is not available 03/28/21 02/23/22 01/13/22 Rx (Lexy) 90 days #180 tabs metoprolol succinate 25 mg 25 mg PO BID #180 tabs 05/04/21 02/23/22 01/13/22 Rx tablet,extended release 24 hr semaglutide 3 mg tablet (Rybelsus) 3 mg PO DAILY 08/03/21 02/23/22 01/13/22 History apixaban 5 mg tablet (Eliquis) 5 mg PO BID #180 tabs 10/12/21 02/23/22 01/11/22 Rx aspirin 81 mg tablet,delayed 81 mg PO DAILY 12/18/21 02/23/22 01/11/22 History release albuterol sulfate 90 mcg/actuation 2 puff inhalation Q6H PRN 01/11/22 02/23/22 01/13/22 History aerosol inhaler Shortness Of Breath budesonide-formoterol HFA 160 1 puff inhalation BID 01/11/22 02/23/22 01/13/22 History mcg-4.5 mcg/actuation aerosol inhaler fluticasone furoate 200 1 inh inhalation DAILY 01/11/22 02/23/22 01/13/22 History mcg-vilanterol 25 mcg/dose inhalation powder (Breo Ellipta) fluoxetine 20 mg capsule (Prozac) 20 mg PO BID 02/11/22 02/23/22 Unknown History fluticasone propionate 50 1 spray intranasal DAILY PRN Nasal 02/11/22 02/23/22 Unknown History mcg/actuation nasal Congestion spray,suspension furosemide 20 mg tablet 20 mg PO QAM 02/11/22 02/23/22 Unknown History morphine 15 mg tablet,extended 15 mg PO Q12H 30 days #60 tabs 02/11/22 02/23/22 Unknown Rx release tamsulosin 0.4 mg capsule 0.4 mg PO BID 02/11/22 02/23/22 Unknown History tiotropium bromide 1.25 2 puff inhalation DAILY 02/11/22 02/23/22 Unknown History mcg/actuation mist for inhalation (Spiriva Respimat) Wheelchair #1 ea 02/20/22 02/23/22 Unknown Rx oxycodone-acetaminophen 5 mg-325 1 - 2 tab PO Q4H PRN pain 02/23/22 02/23/22 Unknown History mg tablet (Percocet) Allergies Allergy/AdvReac Type Severity Reaction Status Date / Time No Known Allergies Allergy Verified 02/11/22 14:39 Current Medications Generic Name Dose Route Start Last Admin Trade Name Sushma PRN Reason Stop Dose Admin Acetaminophen 650 mg 02/23/22 16:32 02/24/22 18:21 Acetaminophen 325 Mg Tablet PO 650 mg Q6H PRN Administration Mild/Mod Pain Or Temp >/= 101 Acetylcysteine 200 mg 02/25/22 20:00 02/26/22 08:47 Acetylcysteine 200 Mg/Ml Sdv 4 Ml INHALATION 200 mg Q6H.RESP CATHI Administration Aspirin 81 mg 02/24/22 09:00 02/26/22 08:29 Aspirin 81 Mg Ec Tablet PO 81 mg DAILY CATHI Administration Atorvastatin Calcium 20 mg 02/24/22 09:00 02/26/22 08:29 Atorvastatin 40 Mg Tablet PO 20 mg DAILY CATHI Administration Budesonide 0.25 mg 02/25/22 20:00 02/26/22 08:46 Budesonide 0.5 Mg/2 Ml Neb INHALATION 0.25 mg BID.RESPIRATORY CATHI Administration Fluoxetine HCl 20 mg 02/23/22 18:00 02/26/22 08:30 Fluoxetine 20 Mg Capsule PO 20 mg BID CATHI Administration Guaifenesin 600 mg 02/23/22 18:00 02/26/22 08:30 Guaifenesin 600 Mg Tablet PO 600 mg BID CATHI Administration Piperacillin Sod/Tazobactam 50 mls @ 12.5 mls/hr 02/25/22 18:45 02/26/22 11:38 Sod 3.375 gm/ Sodium Chloride IV 12.5 mls/hr Q8H CATHI Administration Sodium Chloride 1,000 mls @ 50 mls/hr 02/26/22 12:45 02/26/22 14:29 Sodium Chloride 0.9% IV 50 mls/hr .Q20H CATHI Administration Ipratropium [place] 0.5 mg 02/25/22 13:00 02/26/22 14:32 Ipratropium 0.5 Mg/2.5 Ml Neb INHALATION 0.5 mg Q6H.RESP CATHI Administration Levalbuterol HCl 0.63 mg 02/25/22 14:00 02/26/22 14:32 Levalbuterol 0.63 Mg/3 Ml Neb INHALATION 0.63 mg Q6H.RESP CATHI Administration Levetiracetam 500 mg 02/23/22 21:00 02/26/22 08:30 Levetiracetam 500 Mg Tablet PO 500 mg BID@0900,2100 CATHI Administration Metoprolol Tartrate 75 mg 02/25/22 21:00 02/26/22 08:35 Metoprolol Tartrate 50 Mg Tablet PO 75 mg BID@0900,2100 CATHI Administration Midodrine 5 mg 02/26/22 15:00 02/26/22 14:29 Midodrine 5 Mg Tablet PO 5 mg TID CATHI Administration Oxycodone/Acetaminophen 1 tab 02/24/22 18:27 02/25/22 20:33 Oxycodone-Apap 5-325 Mg Tablet PO 1 tab Q4H PRN Administration pain Fluticasone/Salmeterol 1 puff 02/23/22 20:00 02/26/22 08:47 Fluticasone-Salmeterol 250-50 Diskus INHALATION 1 puff BID.RESPIRATORY CATHI Administration PFSH Acute PFSH: Medical History Acute respiratory failure with hypoxemia Adenocarcinoma of right lung Asthmatic bronchitis Atrial fibrillation BPH (benign prostatic hyperplasia) BPH w urinary obs/LUTS COPD (chronic obstructive pulmonary disease) Cough syncope Diabetes Dyspnea on exertion Facet arthropathy, lumbar Gross hematuria High cholesterol Intervertebral disc disorder with radiculopathy of lumbar region Kidney lesion Kidney lesion Lumbar compression fracture 12/10/2019 Lumbar stenosis with neurogenic claudication Lung mass Myalgia Non-small cell lung cancer metastatic to bone Orthostatic hypotension Positive cardiac stress test Seizure Sinusitis Skin cancer Smoking Spinal stenosis, lumbar region with neurogenic claudication Spondylolisthesis of lumbosacral region Syncope and collapse Tobacco abuse Surgical History History of appendectomy History of eye surgery (~01/18/20) Hx of colonoscopy 5-6 yrs ago Status post placement of implantable loop recorder 12/17/2018 Family History Father , at age 80 CAD (coronary artery disease) Mother , at age 85 CAD (coronary artery disease) Stroke Family/Other CAD (coronary artery disease) Cancer Hyperlipidemia Sister Cancer Social History Smoking and tobacco status: current every day smoker cigarettes Packs smoked per day: 2 Alcohol intake: never Household members: significant other and children Marital status: Life Partner Current occupational status: disabled History of recent travel: No Vitals/I&O/Wt Last Vital Signs Temp 97.7 F 02/26/22 11:48 Pulse 98 02/26/22 14:30 Resp 16 02/26/22 14:30 BP 125/88 02/26/22 11:55 Pulse Ox 93 02/26/22 14:30 O2 Del Method 02/26/22 14:30 O2 Flow Rate 6 02/26/22 14:30 02/25/22 02/26/22 02/26/22 22:59 06:59 14:59 Intake Total 840 / 1080 460 / 1540 Output Total 300 / 300 1200 / 1200 Balance 840 / 1080 160 / 1240 -1200 / -1200 Physical Exam Narrative: General: Patient is awake alert and oriented, in no acute distress. Neck: No JVD Respiratory: Auscultation: Absent breath sound in the right hemithorax, reduced breath sound in the left chest, no wheezing or rhonchi Cardiovascular: Irregularly irregular rhythm, no murmur, no peripheral edema Abdomen: Soft, nontender, nondistended, positive bowel sound Musculoskeletal: No obvious joint deformity Skin: No rash Neuro: Mental status is normal, no gross cranial nerve deficit, gross normal motor function Data : 02/26/22 02:53 02/26/22 02:53 Micro: Microbiology 02/25/22 11:30 Gram Stain - Final Thoracic Fluid Body Fluid Culture - Preliminary 02/23/22 14:00 Gram Stain - Final Sputum - Expectorated Sputum Sputum Culture - Final Other data: I have reviewed the patient's laboratory, microbiologic and radiologic data A&P Assessment and plan (1) Non-small cell lung cancer metastatic to bone: This is a 72-year-old gentleman with recently identified metastatic adenocarcinoma of the lung. When I performed his bronchoscopy in November 2021, the patient had significant narrowing of the right upper lobe segmental bronchi. At this point, the patient has complete atelectasis of the right upper lobe. During the previous bronchoscopy, there was no involvement of the right middle or lower lobe bronchi however currently there seems to be narrowing of right middle and lower lobe bronchi. This could be secondary to mucous plugging or infiltration of the airway with the known malignancy. Interestingly, the CT scan of the chest did not reveal any mediastinal shift to the left side despite having a large pleural effusion. This does raise the concern whether the pleural effusion is there due to volume loss from airway occlusion. Am going to perform a bronchoscopy to assess this better. I am going to tentatively plan this for . I have discussed this with the patient. Status: Acute (2) Malignant pleural effusion: The patient had 1100 cc of pleural fluid drained. This had helped him with his shortness of breath. This is likely secondary to malignant pleural effusion. The patient has lymphocyte predominant exudative pleural effusion. We are waiting for the cytology result. If, the bronchoscopy itself is unable to open up the airways, the patient will likely need a Pleurx catheter. I have discussed this as well with the patient and tentatively setting up for training and home drainage. Status: Acute (3) COPD (chronic obstructive pulmonary disease): The patient has significant emphysema and carries a diagnosis of COPD. He has chronic hypoxemic respiratory failure. He has developed acute on chronic hypoxemic respiratory failure due to the pleural effusion as well as airway occlusion. He is on broad-spectrum antibiotic with reduction of his WBC count. All his microbiologic studies have been negative so far. Am hoping that after the bronchoscopy and the pleural fluid drainage he will have symptomatic relief. Status: Acute (4) Acute and chronic respiratory failure with hypoxia: Status: Acute Coding Level of Care Code Acute [facility] Diagnoses Non-small cell lung cancer metastatic to bone C34.90; C79.51 Malignant pleural effusion J91.0 COPD (chronic obstructive pulmonary disease) J44.9 Acute and chronic respiratory failure with hypoxia J96.21
--- NOTE | 2022-02-26 15:43 | PC.NURSE ---
I reported the low 02 to the nurse. 87%
[2022-02-27] VITALS (18 sets, daily range): BP systolic 73–138; BP diastolic 45–75; PULSE 81–101; RESP 14–23; TEMP 36.2–37; O2SAT 86–98
[2022-02-27] MEDS: oxyCODONE-APAP 5-325 mg Tablet 1 TAB PO ×2 (02:04→20:17)
[2022-02-27] MEDS: piperacillin-tazobactam 3.375 GM in sodium chloride 0.9% (plus) 50 ML IV ×3 (02:04→18:12)
[2022-02-27] MEDS: ipratropium 0.5 mg/2.5 mL Neb INHALATION ×4 (02:29→20:50)
[2022-02-27] MEDS: acetylcysteine 200 mg/mL SDV 4 mL INHALATION ×4 (02:29→20:50)
[2022-02-27] MEDS: levalbuterol 0.63 mg/3 mL Neb INHALATION ×4 (02:29→20:50)
[2022-02-27 03:03] LABS: Basophils % 0.1 %; Eosinophils % 0.1 %; Hemoglobin 11.2 g/dL (11.7-16.6); Lymphocytes # 0.3 10^3/uL (0.8-4.8); Lymphocytes % 2.8 %; Mean Corpuscular HGB Conc 32.9 g/dL (30.0-36.0); Mean Corpuscular Hemoglobin 30.4 pg (28.0-34.0); Mean Corpuscular Volume 92.4 fl (80-94); Mean Platelet Volume 8.7 fL (7.4-10.4); Monocytes # 0.9 10^3/uL (0.2-0.9); Monocytes % 7.9 %; Neutrophils # 10.16 10^3/uL (1.8-7.7); Neutrophils % 88.5 %; Nucleated Red Blood Cells % 0 %; Platelet Count 407 10^3/cmm (130-400); Red Blood Count 3.68 10^6/uL (4.1-5.3); Red Cell Distribution Width 15.8 % (12.1-15.1); White Blood Count 11.5 10^3/uL (4.0-10.0)
[2022-02-27 03:31] LABS: Alanine Aminotransferase 27 U/L (0-41); Albumin Level 2.5 g/dL (3.5-5.2); Alkaline Phosphatase 160 IU/L (40-130); Anion Gap 10.6 (5-19); Aspartate Amino Transferase 75 U/L (0-40); Blood Urea Nitrogen 18 mg/dL (8-23); Calcium 9.2 mg/dL (8.5-10.5); Carbon Dioxide 33 mmol/L (22-29); Chloride 92 mmol/L (98-107); Globulin 3.2 g/dL (1.3-4.6); Glucose 152 mg/dL (65-115); Osmolality Calculated 279 mOsm/kg (285-295); Potassium 3.6 mmol/L (3.5-5.1); Sodium 132 mmol/L (136-145); Total Bilirubin 0.5 mg/dL (0.15-1.2); Total Protein 5.7 g/dL (6.6-8.7)
[2022-02-27] MEDS: atorvastatin 40 mg Tablet 20 MG PO (08:25)
[2022-02-27] MEDS: metoprolol tartrate 50 mg Tablet 75 MG PO ×2 (08:26→20:18)
[2022-02-27] MEDS: levETIRAcetam 500 mg Tablet PO ×2 (08:26→20:17)
[2022-02-27] MEDS: guaiFENesin 600 mg Tablet PO ×2 (08:26→18:14)
[2022-02-27] MEDS: aspirin 81 mg EC Tablet PO (08:26)
[2022-02-27] MEDS: fluoxetine 20 mg Capsule PO ×2 (08:26→18:14)
[2022-02-27] MEDS: midodrine 5 mg TABLET PO (08:27)
[2022-02-27] MEDS: tamsulosin 0.4 mg Capsule PO (08:27)
[2022-02-27] MEDS: budesonide 0.5 mg/2 mL Neb 0.25 MG INHALATION ×2 (08:34→20:50)
[2022-02-27] MEDS: sodium chloride 0.9% 1,000 ML 50 ML IV (09:16)
--- NOTE | 2022-02-27 12:21 | P.PN_ITS ---
Subjective Subjective: No acute events overnight. Today morning seen sitting up in chair. Blood pressures are better. Orthostatics are better but still positive. Patient less symptomatic. States breathing is the same. Family at bedside. Currently on 6 L nasal cannula. Denies any nausea, vomiting, headache. Has remained afebrile. Vitals/I&O/Wt Last Vital Signs Temp 98.6 F 02/27/22 11:18 Pulse 101 H 02/27/22 11:18 Resp 19 H 02/27/22 11:18 BP 91/53 02/27/22 11:18 Pulse Ox 90 02/27/22 11:18 O2 Del Method 02/27/22 11:18 O2 Flow Rate 7 02/27/22 08:35 02/26/22 02/27/22 02/27/22 22:59 06:59 14:59 Intake Total 340 / 340 360 / 700 1287.500 / 1287.500 Output Total 220 / 1420 425 / 1845 Balance 120 / -1080 -65 / -1145 1287.500 / 1287.500 Physical Exam Const: COMMON NORMALS: patient oriented x3 Resp: COMMON NORMALS: clear to auscultation bilaterally EFFORT & INSPECTION: Yes symmetric chest movement AUSCULTATION: clear to auscultation bilaterally OTHER: Bilateral wheezing present in both lung schroeder, diminished air entry at the right lung field particularly at the base Cardio: COMMON NORMALS: regular rate, regular rhythm, S1 normal heart sound present, S2 normal heart sound present, No gallops present (Cardio), No murmurs present (Cardio), No rub (Cardio) and Peripheral pulses 2+ throughout RATE: regular rate RHYTHM: regular rhythm HEART SOUNDS: S1 normal heart sound present and S2 normal heart sound present PERIPHERAL PULSES: Peripheral pulses 2+ throughout GI: COMMON NORMALS: Normal to inspection, nondistended, normoactive bowel sounds present, Soft to palpation, non-tender, No hepatosplenomegaly present and no masses AUSCULTATION: Yes normoactive bowel sounds PALPATION: Yes Soft to palpation and Yes No hepatosplenomegaly present RECTAL EXAM: Yes deferred Extremity: COMMON NORMALS: no clubbing, cyanosis or edema and no pedal edema Neuro: COMMON NORMALS: patient oriented x3 Data : 02/27/22 02:51 02/27/22 02:51 Micro: Microbiology 02/25/22 11:30 Gram Stain - Final Thoracic Fluid Body Fluid Culture - Preliminary A&P Assessment and plan (1) Acute and chronic respiratory failure with hypoxia: Status: Acute (2) Pleural effusion: Status: Acute (3) Non-small cell lung cancer metastatic to bone: Status: Acute (4) Hyponatremia: Status: Acute (5) Pneumonia: Status: Acute (6) Atrial fibrillation: Status: Acute Qualifiers: Atrial fibrillation type: paroxysmal Qualified Code(s): I48.0 - Paroxysmal atrial fibrillation (7) Orthostatic hypotension: Status: Acute Plan 71 year old male with PMH of A.fib on eliquis , COPD on 2 Ls home oxygen , recurrent syncope, CAD, ?Non-small cell lung cancer metastatic to bone on radiation therapy, was brought in with c/o generalized weakness, SOB with productive greenish sputum,going on for some time, denied any fever, chest pain, he also had a fall today at home during which happened during a pre syncopal episode. Acute on chronic hypoxic respiratory failure secondary to symptomatic significant right pleural effusion, possible underlying pneumonia, COPD exacerbation with baseline non-small cell lung Carcinoma on radiation therapy. Post- thoracentesis. 1100 cc drained. Fluid studies consistent with exudative. Follow-up cultures. Can be secondary to malignancy. Follow-up sputum culture, blood culture, fluid culture. MRSA negative. C/w Zosyn. Urine Legionella, bacterial antigen negative. Appreciate repeat CT chest without contrast postthoracentesis. Will consult pulmonology to see if he needs Pleurx catheter placement. For COPD exacerbation: Wean Solu-Medrol to 40 mg IV daily. Continue with ipratropium, Xopenex every 6 hour, budesonide twice daily. Oxygen supplementation keeping saturation over 88%. History of diastolic dysfunction. EF 50 to 55% on last echocardiogram from November 2021. Patient is euvolemic to mildly dehydrated. Hold off on IV Lasix. Normal saline at 50 cc/h for 1 bag. Strict input output charting, daily weights. Orthostatic hypotension: Could be secondary to diuresis along with fluid loss from thoracentesis. Given chronic issues including malignancy, atrial fibrillation, diastolic heart failure patient would need on and off diuresis and thoracentesis. Start on midodrine 5 mg oral 3 times daily. Will uptitrate for wean of given systolic blood pressures of 140/90 mmHg. Decrease dose of Flomax to 0.4 mg once a day. Atrial fibrillation with rapid ventricular response: Takes metoprolol 25 mg twice daily at home. Continue with metoprolol tartrate 75 mg twice daily. Cardizem drip stopped overnight. Will restart Eliquis from evening as patient is postthoracentesis for anticoagulation. Presyncope: Secondary to orthostatic hypotension Monitor blood pressures accordingly. Continue the chronic medications. PT evaluation. PUD prophylaxis: Protonix DVT PPX: On SCDS, Eliquis Code Status :Full code. Plan for the day: Appreciate pulmonology recommendations. Stop vancomycin as MRSA is negative. Continue with Zosyn. Plan for bronchoscopy in a.m. tomorrow for possible mucous plug evacuation versus evaluation for right middle lobe and lower lobe bronchus obstruction from mass. Stop IV fluids. Hold off on Lasix. Oxygen supplementation keeping saturation over 88%. Physical therapy. Monitor orthostatics. Increase midodrine to 10 mg 3 times a day. Monitor for atrial fibrillation. Continue with metoprolol 75 mg twice daily. This Attestations Medical Necessity Statement*: Requires further hospitalization for management of acute on chronic hypoxic respiratory failure secondary to moderate to large right-sided pleural effusion, possible right sided mucous plug versus obstruction of right middle lobe/lower lobe bronchus from mass, orthostatic hypotension Time Spent in Patient Care: Greater than 35 minutes Coding Level of Care Code Acute Clinical Nutrition Manager for [facility] Diagnoses Acute and chronic respiratory failure with hypoxia J96.21 Pleural effusion J90 Non-small cell lung cancer metastatic to bone C34.90; C79.51 Hyponatremia E87.1 Pneumonia J18.9 Atrial fibrillation I48.0 Atrial fibrillation type: paroxysmal Orthostatic hypotension I95.1
[2022-02-27] MEDS: midodrine 5 mg TABLET 10 MG PO ×2 (14:42→20:17)
[2022-02-27 17:01] LABS: Glucose Point of Care 207 mg/dL (70-110)
[2022-02-27] MEDS: insulin lispro 100 unit/1 mL SUBCUT (18:14)
[2022-02-27 20:15] LABS: Glucose Point of Care 136 mg/dL (70-110)
[2022-02-28] VITALS (29 sets, daily range): BP systolic 71–143; BP diastolic 46–76; PULSE 81–100; RESP 17–39; TEMP 36.2–36.8; O2SAT 86–98
[2022-02-28] MEDS: piperacillin-tazobactam 3.375 GM in sodium chloride 0.9% (plus) 50 ML IV ×2 (02:23→18:30)
[2022-02-28 03:11] LABS: Basophils % 0.1 %; Hematocrit 34.8 % (42.0-52.0); Hemoglobin 11.3 g/dL (11.7-16.6); Lymphocytes # 0.3 10^3/uL (0.8-4.8); Lymphocytes % 3.9 %; Mean Corpuscular HGB Conc 32.5 g/dL (30.0-36.0); Mean Corpuscular Hemoglobin 30.1 pg (28.0-34.0); Mean Corpuscular Volume 92.8 fl (80-94); Mean Platelet Volume 8.9 fL (7.4-10.4); Monocytes # 1.1 10^3/uL (0.2-0.9); Monocytes % 12.4 %; Neutrophils # 7.23 10^3/uL (1.8-7.7); Neutrophils % 82.9 %; Nucleated Red Blood Cells % 0 %; Platelet Count 354 10^3/cmm (130-400); Red Blood Count 3.75 10^6/uL (4.1-5.3); Red Cell Distribution Width 15.7 % (12.1-15.1); White Blood Count 8.7 10^3/uL (4.0-10.0)
[2022-02-28] MEDS: ipratropium 0.5 mg/2.5 mL Neb INHALATION ×3 (03:12→21:16)
[2022-02-28] MEDS: levalbuterol 0.63 mg/3 mL Neb INHALATION ×3 (03:12→21:19)
[2022-02-28] MEDS: acetylcysteine 200 mg/mL SDV 4 mL INHALATION ×3 (03:12→21:18)
[2022-02-28 03:47] LABS: Alanine Aminotransferase 23 U/L (0-41); Albumin Level 2.6 g/dL (3.5-5.2); Alkaline Phosphatase 161 IU/L (40-130); Anion Gap 9.9 (5-19); Aspartate Amino Transferase 43 U/L (0-40); Blood Urea Nitrogen 14 mg/dL (8-23); Calcium 8.9 mg/dL (8.5-10.5); Carbon Dioxide 32 mmol/L (22-29); Chloride 96 mmol/L (98-107); Glucose 151 mg/dL (65-115); Osmolality Calculated 281 mOsm/kg (285-295); Potassium 3.9 mmol/L (3.5-5.1); Sodium 134 mmol/L (136-145); Total Bilirubin 0.5 mg/dL (0.15-1.2); Total Protein 5.6 g/dL (6.6-8.7)
[2022-02-28 06:28] LABS: Glucose Point of Care 137 mg/dL (70-110)
[2022-02-28] MEDS: budesonide 0.5 mg/2 mL Neb 0.25 MG INHALATION ×2 (08:28→21:18)
[2022-02-28] MEDS: aspirin 81 mg EC Tablet PO (09:05)
[2022-02-28] MEDS: atorvastatin 40 mg Tablet 20 MG PO (09:05)
[2022-02-28] MEDS: tamsulosin 0.4 mg Capsule PO (09:05)
[2022-02-28] MEDS: levETIRAcetam 500 mg Tablet PO ×2 (09:05→21:54)
[2022-02-28] MEDS: midodrine 5 mg TABLET 10 MG PO ×2 (09:05→21:47)
[2022-02-28] MEDS: guaiFENesin 600 mg Tablet PO ×2 (09:05→18:30)
[2022-02-28] MEDS: fluoxetine 20 mg Capsule PO ×2 (09:05→18:30)
[2022-02-28] MEDS: metoprolol tartrate 50 mg Tablet 75 MG PO ×2 (09:05→21:47)
--- NOTE | 2022-02-28 10:06 | PC.SOCIAL ---
IMM update IMM Updated with patient. Verbalized an understanding. Copy Pg 2 provided. Initialled, dated, timed, and placed in chart.
--- NOTE | 2022-02-28 10:51 | ANES.PREANE2 ---
Pre-Anesthetic Assessment Height/Weight: Height 1.8 m Weight 92.079 kg Temp Pulse Resp BP Pulse Ox O2 Del Method O2 Flow Rate 98.0 F 100 18 107/71 91 6 02/28/22 07:24 02/28/22 08:47 02/28/22 08:30 02/28/22 08:00 02/28/22 08:30 02/28/22 08:30 02/28/22 03:13 FiO2 6 02/28/22 08:30 Preop Diagnosis: Lung cancer Operation Date: 02/28/22 12:00 Proposed Procedures p Bronchoscopy with PleurX drain placement(Not Applicable) - You Mirza MD Operation Date: 03/01/22 13:00 Proposed Procedures p Bureau Drain Placement(Not Applicable) - You Mirza MD Familial anesthetic complications: none Was Beta Amparo taken within 24 hours: Yes Last intake: 02/27/22 Social Tobacco and No alcohol Exam alert, oriented x 3 and regular rate & rhythm diminished lung sounds b/l Airway Submandibular: within normal limits Cervical ROM: within normal limits Mallampati: Class II Dentition: false Pulmonary Chronic Obstructive Pulmonary Disease and Exertional Dyspnea Acute on chronic respiratory failure with hypoxemia on 6 LPM NC Adenocarcinoma of right lung Bronchitis Cough syncope Pleural effusion CV/HEM Atrial Fibrillation, Anemia and Coronary Artery Disease Orthostatic hypotension Pacemaker TTE 12/07/21 CONCLUSIONS ?LV systolic function is borderline normal with EF of 50-55%. ?Grade 1 diastolic dysfunction ?Mitral valve is thickened and aortic valve is thickened ?Trace tricuspid regurgitaion ?No comparison studies are available Stress test 03/2021 CONCLUSION: 1. No significant EKG changes with the LexiScan infusion. 2. No LexiScan induced chest pain or cardiac arrhythmia. 3. Normal blood pressure and heart rate response. 4. Sestamibi/sestamibi perfusion scan pending; see separate report. EKG 02/24/22 Interpretive Statements ATRIAL FIBRILLATION WITH RAPID VENTRICULAR RESPONSE NONSPECIFIC ST & T-WAVE ABNORMALITY CRITICAL TEST RESULT INTERPRETATION BASED ON A DEFAULT AGE OF 40 YEARS Compared to ECG 02/23/2022 15:49:03 Sinus rhythm no longer present Sinus arrhythmia no longer present T-wave abnormality still present Electronically Signed On 02-24-2022 19:06:17 CDT by Jv Mahoney M.D. [id number] BPH Hematuria Kidney lesion Na 134 Hepatic None reported GI None reported Metabolic Hyperlipidemia [facility] [place] Lower Back Pain Lumbar compression fx Facet arthropathy Spinal stenosis Neuropsych Seizure Anesthetic Plan ASA status: 4 Anesthesia: Anesthesia Evaluation and General Other: We discussed risk and benefits of general anesthesia including PONV, sore throat (sometimes severe), corneal abrasion, positioning and peripheral nerve injuries, life threatening allergic reaction, post operative ICU admission requiring prolonged intubation, aspiration, stroke, heart attack, , and rare incidences of recall. Patient consents to proceed with general anesthesia. Risk of > 500 ml blood loss (7ml/kg in children): No Medications/Allergies Home Medications Medication Instructions Recorded Confirmed Last Taken Type amlodipine 10 mg tablet 10 mg PO DAILY 08/05/19 02/23/22 01/14/22 History ibuprofen 800 mg tablet 800 mg PO Q8H PRN Pain 08/05/19 02/23/22 01/11/22 History metformin 500 mg tablet 500 mg PO BID 08/05/19 02/23/22 01/13/22 History tizanidine 4 mg tablet 4 mg PO Q8H PRN Spasms 08/05/19 02/23/22 01/13/22 History nitroglycerin 2.5 mg 2.5 mg PO DAILY 02/07/20 02/23/22 12/17/21 History capsule,extended release omeprazole 20 mg capsule,delayed 20 mg PO BID 03/07/20 02/23/22 01/14/22 History release simvastatin 20 mg tablet 40 mg PO DAILY 03/07/20 02/23/22 01/13/22 History finasteride 5 mg tablet 5 mg PO DAILY 03/07/21 02/23/22 01/13/22 History levetiracetam 500 mg tablet 500 mg PO BID XR is not available 03/28/21 02/23/22 01/13/22 Rx (Keppra) 90 days #180 tabs metoprolol succinate 25 mg 25 mg PO BID #180 tabs 05/04/21 02/23/22 01/13/22 Rx tablet,extended release 24 hr semaglutide 3 mg tablet (Rybelsus) 3 mg PO DAILY 08/03/21 02/23/22 01/13/22 History apixaban 5 mg tablet (Eliquis) 5 mg PO BID #180 tabs 10/12/21 02/23/22 01/11/22 Rx aspirin 81 mg tablet,delayed 81 mg PO DAILY 12/18/21 02/23/22 01/11/22 History release albuterol sulfate 90 mcg/actuation 2 puff inhalation Q6H PRN 01/11/22 02/23/22 01/13/22 History aerosol inhaler Shortness Of Breath budesonide-formoterol HFA 160 1 puff inhalation BID 01/11/22 02/23/22 01/13/22 History mcg-4.5 mcg/actuation aerosol inhaler fluticasone furoate 200 1 inh inhalation DAILY 01/11/22 02/23/22 01/13/22 History mcg-vilanterol 25 mcg/dose inhalation powder (Breo Ellipta) fluoxetine 20 mg capsule (Prozac) 20 mg PO BID 02/11/22 02/23/22 Unknown History fluticasone propionate 50 1 spray intranasal DAILY PRN Nasal 02/11/22 02/23/22 Unknown History mcg/actuation nasal Congestion spray,suspension furosemide 20 mg tablet 20 mg PO QAM 02/11/22 02/23/22 Unknown History morphine 15 mg tablet,extended 15 mg PO Q12H 30 days #60 tabs 02/11/22 02/23/22 Unknown Rx release tamsulosin 0.4 mg capsule 0.4 mg PO BID 02/11/22 02/23/22 Unknown History tiotropium bromide 1.25 2 puff inhalation DAILY 02/11/22 02/23/22 Unknown History mcg/actuation mist for inhalation (Spiriva Respimat) Wheelchair #1 ea 02/20/22 02/23/22 Unknown Rx oxycodone-acetaminophen 5 mg-325 1 - 2 tab PO Q4H PRN pain 02/23/22 02/23/22 Unknown History mg tablet (Percocet) Allergies Allergy/AdvReac Type Severity Reaction Status Date / Time No Known Allergies Allergy Verified 02/11/22 14:39 Current Medications Generic Name Dose Route Start Last Admin Trade Name Freq PRN Reason Stop Dose Admin Acetaminophen 650 mg 02/23/22 16:32 02/24/22 18:21 Acetaminophen 325 Mg Tablet PO 650 mg Q6H PRN Administration Mild/Mod Pain Or Temp >/= 101 Acetylcysteine 200 mg 02/25/22 20:00 02/28/22 08:27 Acetylcysteine 200 Mg/Ml Sdv 4 Ml INHALATION 200 mg Q6H.RESP CATHI Administration Aspirin 81 mg 02/24/22 09:00 02/28/22 09:05 Aspirin 81 Mg Ec Tablet PO 81 mg DAILY CATHI Administration Atorvastatin Calcium 20 mg 02/24/22 09:00 02/28/22 09:05 Atorvastatin 40 Mg Tablet PO 20 mg DAILY CATHI Administration Budesonide 0.25 mg 02/25/22 20:00 02/28/22 08:28 Budesonide 0.5 Mg/2 Ml Neb INHALATION 0.25 mg BID.RESPIRATORY CATHI Administration Fluoxetine HCl 20 mg 02/23/22 18:00 02/28/22 09:05 Fluoxetine 20 Mg Capsule PO 20 mg BID CATHI Administration Guaifenesin 600 mg 02/23/22 18:00 02/28/22 09:05 Guaifenesin 600 Mg Tablet PO 600 mg BID CATHI Administration Piperacillin Sod/Tazobactam 50 mls @ 12.5 mls/hr 02/25/22 18:45 02/28/22 07:00 Sod 3.375 gm/ Sodium Chloride IV Infused Q8H CATHI Infusion Insulin Human Lispro 0 unit 02/27/22 18:00 02/28/22 07:31 Insulin Lispro 100 Unit/1 Ml SUBCUT Not Given WM&BEDTIME CATHI Protocol Ipratropium [place] 0.5 mg 02/25/22 13:00 02/28/22 08:28 Ipratropium 0.5 Mg/2.5 Ml Neb INHALATION 0.5 mg Q6H.RESP CATHI Administration Levalbuterol HCl 0.63 mg 02/25/22 14:00 02/28/22 08:28 Levalbuterol 0.63 Mg/3 Ml Neb INHALATION 0.63 mg Q6H.RESP CATHI Administration Levetiracetam 500 mg 02/23/22 21:00 02/28/22 09:05 Levetiracetam 500 Mg Tablet PO 500 mg BID@0900,2100 CATHI Administration Methylprednisolone Sodium Succinate 40 mg 02/27/22 09:00 02/28/22 09:04 Methylprednisolone Sod Succ 40 Mg/Ml Inj IVP 40 mg DAILY CATHI Administration Metoprolol Tartrate 75 mg 02/25/22 21:00 02/28/22 09:05 Metoprolol Tartrate 50 Mg Tablet PO 75 mg BID@0900,2100 CATHI Administration Midodrine 10 mg 02/27/22 15:00 02/28/22 09:05 Midodrine 5 Mg Tablet PO 10 mg TID CATHI Administration Oxycodone/Acetaminophen 1 tab 02/24/22 18:27 02/27/22 20:17 Oxycodone-Apap 5-325 Mg Tablet PO 1 tab Q4H PRN Administration pain Fluticasone/Salmeterol 1 puff 02/23/22 20:00 02/28/22 08:28 Fluticasone-Salmeterol 250-50 Diskus INHALATION Not Given BID.RESPIRATORY CATHI Tamsulosin HCl 0.4 mg 02/27/22 09:00 02/28/22 09:05 Tamsulosin 0.4 Mg Capsule PO 0.4 mg DAILY CATHI Administration Additional Medication Information Generic Name Dose Route Start Last Admin Trade Name Freq PRN Reason Stop Dose Admin Albuterol/Ipratropium 3 ml 02/23/22 20:00 02/24/22 15:01 Ipratropium-Albuterol 3 Ml Neb INHALATION 3 ml Q4H.RESPIRATORY CATHI Administration Aspirin 81 mg 02/24/22 09:00 02/24/22 13:25 Aspirin 81 Mg Ec Tablet PO 81 mg DAILY CATHI Administration Atorvastatin Calcium 20 mg 02/24/22 09:00 02/24/22 09:37 Atorvastatin 40 Mg Tablet PO 20 mg DAILY CATHI Administration Fluoxetine HCl 20 mg 02/23/22 18:00 02/24/22 09:38 Fluoxetine 20 Mg Capsule PO 20 mg BID CATHI Administration Guaifenesin 600 mg 02/23/22 18:00 02/24/22 09:38 Guaifenesin 600 Mg Tablet PO 600 mg BID CATHI Administration Ceftriaxone Sodium 1,000 mg/ 50 mls @ 100 mls/hr 02/24/22 07:00 02/24/22 10:20 Sodium Chloride IV Infused Q24H CATHI Infusion Protocol Levetiracetam 500 mg 02/23/22 21:00 02/24/22 09:38 Levetiracetam 500 Mg Tablet PO 500 mg BID@0900,2100 CATHI Administration Fluticasone/Salmeterol 1 puff 02/23/22 20:00 02/24/22 08:06 Fluticasone-Salmeterol 250-50 Diskus INHALATION 1 puff BID.RESPIRATORY CATHI Administration Tamsulosin HCl 0.4 mg 02/23/22 18:00 02/24/22 09:38 Tamsulosin 0.4 Mg Capsule PO 0.4 mg BID CATHI Administration PFSH Anesthesia Medical History Acute respiratory failure with hypoxemia Adenocarcinoma of right lung Asthmatic bronchitis Atrial fibrillation BPH (benign prostatic hyperplasia) BPH w urinary obs/LUTS COPD (chronic obstructive pulmonary disease) Cough syncope Diabetes Dyspnea on exertion Facet arthropathy, lumbar Gross hematuria High cholesterol Intervertebral disc disorder with radiculopathy of lumbar region Kidney lesion Kidney lesion Lumbar compression fracture 12/10/2019 Lumbar stenosis with neurogenic claudication Lung mass Myalgia Non-small cell lung cancer metastatic to bone Orthostatic hypotension Positive cardiac stress test Seizure Sinusitis Skin cancer Smoking Spinal stenosis, lumbar region with neurogenic claudication Spondylolisthesis of lumbosacral region Syncope and collapse Tobacco abuse Surgical History History of appendectomy History of eye surgery (~01/18/20) Hx of colonoscopy 5-6 yrs ago Status post placement of implantable loop recorder 12/17/2018 Family History Father , at age 80 CAD (coronary artery disease) Mother , at age 85 CAD (coronary artery disease) Stroke Family/Other CAD (coronary artery disease) Cancer Hyperlipidemia Sister Cancer Social History Smoking and tobacco status: current every day smoker cigarettes Packs smoked per day: 2 Alcohol intake: never Household members: significant other and children Marital status: Life Partner Current occupational status: disabled History of recent travel: No Data Anesthesia : 02/28/22 02:54 02/28/22 02:54 Short CBC 02/27/22 02/28/22 Range/Units 02:51 02:54 WBC 11.5 H 8.7 (4.0-10.0) 10^3/uL Hgb 11.2 L 11.3 L (11.7-16.6) g/dL Hct 34.0 L 34.8 L (42.0-52.0) % MCV 92.4 92.8 (80-94) fl Plt Count 407 H 354 (130-400) 10^3/cmm Neut % (Auto) 88.5 82.9 % Neut # (Auto) 10.16 H 7.23 (1.8-7.7) 10^3/uL BMP 02/27/22 02/28/22 02:51 02:54 Sodium 132 L 134 L Potassium 3.6 3.9 Chloride 92 L 96 L Carbon Dioxide 33 H 32 H BUN 18 14 Creatinine 0.4 L 0.3 L Glucose 152 H 151 H Calcium 9.2 8.9 Liver Function 02/27/22 02/28/22 Range/Units 02:51 02:54 Total Bilirubin 0.5 0.5 (0.15-1.2) mg/dL AST 75 H 43 H (0-40) U/L ALT 27 23 (0-41) U/L Alkaline Phosphatase 160 H 161 H (40-130) IU/L Albumin 2.5 L 2.6 L (3.5-5.2) g/dL Microbiology 02/25/22 11:30 Gram Stain - Final Thoracic Fluid Body Fluid Culture - Preliminary Cardiac Studies: Echocardiogram 12/07/21 Sestamibi Stress Test (Cardiology) 03/30/21
[2022-02-28 11:36] LABS: Glucose Point of Care 209 mg/dL (70-110)
[2022-02-28] MEDS: sodium chloride 0.9% 1,000 ML 30 ML IV (11:46)
[2022-02-28] MEDS: lidocaine 4% PF 5 mL INJ INHALATION (12:15)
[2022-02-28] MEDS: lidocaine 1% INJ 20 mL 10 ML INJECTION (13:03)
--- NOTE | 2022-02-28 13:18 | XR_ITS ---
WS: [id number] XR chest 1V portable [id number] REASON FOR EXAM: PLEURX CATHETER PLACEMENT FINDINGS: Presumed Pleurx catheter in the lower right pleural space. Non tension right pneumothorax with complete atelectasis of the right upper lung which shows no aerat ion. Partial aeration of the right lower lung with extensive interstitial reticular densities. Left chest is unchanged compared to 02/25/2022. XR/XR chest 1V portable [id number] IMPRESSION: Right pneumothorax.
--- NOTE | 2022-02-28 13:32 | PM.PN ---
Subjective Subjective: No acute events overnight. Patient has remained hemodynamically stable and afebrile. Continues to remain on 6 L high flow nasal cannula. Plan for bronchoscopy and Adam drain placement today. Patient continues to remain orthostatic but less symptomatic. No more dizziness. Heart rate does not go up on standing up. Blood pressures do fall more than 15 points but without any tachycardic response. Vitals/I&O/Wt Last Vital Signs Temp 97.3 F L 02/28/22 11:30 Pulse 83 02/28/22 11:30 Resp 20 H 02/28/22 11:30 BP 122/76 02/28/22 11:30 Pulse Ox 90 02/28/22 11:30 O2 Del Method 02/28/22 11:30 O2 Flow Rate 6 02/28/22 11:30 FiO2 6 02/28/22 08:30 02/27/22 02/28/22 02/28/22 22:59 06:59 14:59 Intake Total 340 / 1627.500 240 / 1867.500 50 / 50 Output Total 500 / 500 900 / 1400 Balance -160 / 1127.500 -660 / 467.500 50 / 50 Physical Exam Const: COMMON NORMALS: patient oriented x3 Resp: COMMON NORMALS: clear to auscultation bilaterally EFFORT & INSPECTION: Yes symmetric chest movement AUSCULTATION: clear to auscultation bilaterally OTHER: Bilateral wheezing present in both lung schroeder, diminished air entry at the right lung field particularly at the base Cardio: COMMON NORMALS: regular rate, regular rhythm, S1 normal heart sound present, S2 normal heart sound present, No gallops present (Cardio), No murmurs present (Cardio), No rub (Cardio) and Peripheral pulses 2+ throughout RATE: regular rate RHYTHM: regular rhythm HEART SOUNDS: S1 normal heart sound present and S2 normal heart sound present PERIPHERAL PULSES: Peripheral pulses 2+ throughout GI: COMMON NORMALS: Normal to inspection, nondistended, normoactive bowel sounds present, Soft to palpation, non-tender, No hepatosplenomegaly present and no masses AUSCULTATION: Yes normoactive bowel sounds PALPATION: Yes Soft to palpation and Yes No hepatosplenomegaly present RECTAL EXAM: Yes deferred Extremity: COMMON NORMALS: no clubbing, cyanosis or edema and no pedal edema Neuro: COMMON NORMALS: patient oriented x3 Data : 02/28/22 02:54 08/11/22 02:54 Micro: Microbiology 02/25/22 11:30 Gram Stain - Final Thoracic Fluid Body Fluid Culture - Final A&P Assessment and plan (1) Acute and chronic respiratory failure with hypoxia: Status: Acute (2) Pleural effusion: Status: Acute (3) Non-small cell lung cancer metastatic to bone: Status: Acute (4) Hyponatremia: Status: Acute (5) Pneumonia: Status: Acute (6) Atrial fibrillation: Status: Acute Qualifiers: Atrial fibrillation type: paroxysmal Qualified Code(s): I48.0 - Paroxysmal atrial fibrillation (7) Orthostatic hypotension: Status: Acute Plan 71 year old male with PMH of A.fib on eliquis , COPD on 2 Ls home oxygen , recurrent syncope, CAD, ?Non-small cell lung cancer metastatic to bone on radiation therapy, was brought in with c/o generalized weakness, SOB with productive greenish sputum,going on for some time, denied any fever, chest pain, he also had a fall today at home during which happened during a pre syncopal episode. Acute on chronic hypoxic respiratory failure secondary to symptomatic significant right pleural effusion, possible underlying pneumonia, COPD exacerbation with baseline non-small cell lung Carcinoma on radiation therapy. Post- thoracentesis. 1100 cc drained. Fluid studies consistent with exudative. Follow-up cultures. Can be secondary to malignancy. Follow-up sputum culture, blood culture, fluid culture. MRSA negative. C/w Zosyn. Urine Legionella, bacterial antigen negative. Appreciate repeat CT chest without contrast postthoracentesis. Will consult pulmonology to see if he needs Pleurx catheter placement. For COPD exacerbation: Wean Solu-Medrol to 40 mg IV daily. Continue with ipratropium, Xopenex every 6 hour, budesonide twice daily. Oxygen supplementation keeping saturation over 88%. History of diastolic dysfunction. EF 50 to 55% on last echocardiogram from November 2021. Patient is euvolemic to mildly dehydrated. Hold off on IV Lasix. Normal saline at 50 cc/h for 1 bag. Strict input output charting, daily weights. Orthostatic hypotension: Could be secondary to diuresis along with fluid loss from thoracentesis. Given chronic issues including malignancy, atrial fibrillation, diastolic heart failure patient would need on and off diuresis and thoracentesis. Start on midodrine 5 mg oral 3 times daily. Will uptitrate for wean of given systolic blood pressures of 140/90 mmHg. Decrease dose of Flomax to 0.4 mg once a day. Atrial fibrillation with rapid ventricular response: Takes metoprolol 25 mg twice daily at home. Continue with metoprolol tartrate 75 mg twice daily. Cardizem drip stopped overnight. Will restart Eliquis from evening as patient is postthoracentesis for anticoagulation. Presyncope: Secondary to orthostatic hypotension Monitor blood pressures accordingly. Continue the chronic medications. PT evaluation. PUD prophylaxis: Protonix DVT PPX: On SCDS, Eliquis Code Status :Full code. Plan for the day: Plan for bronchoscopy and [place] drain placement today. Continue with oral prednisone 40 mg oral daily. Continue with midodrine 10 mg 3 times daily, metoprolol 75 mg twice daily. If heart rate remains stable can plan for 50 mg metoprolol morning, 75 mg metoprolol in the evening. Orthostatic check every shift. Continue with Zosyn as patient is going for [place] drain placement today. Restart Eliquis postprocedure in the evening. If patient remained stable for next 24 hours after procedure can plan for discharge home with home health. Discussed CODE STATUS again in detail with the patient. He would like to remain full code. Attestations Medical Necessity Statement*: Requested hospitalization for management of acute on chronic hypoxic respiratory failure secondary to significant right pleural effusion, possible mucous plug versus bronchopulmonary obstruction Time Spent in Patient Care: Greater than 35 minutes Coding Level of Care Code Acute Manager Neonatal for [facility] Fwd Exam Detailed Diagnoses Acute and chronic respiratory failure with hypoxia J96.21 Pleural effusion J90 Non-small cell lung cancer metastatic to bone C34.90; C79.51 Hyponatremia E87.1 Pneumonia J18.9 Atrial fibrillation I48.0 Atrial fibrillation type: paroxysmal Orthostatic hypotension I95.1
--- NOTE | 2022-02-28 14:01 | XR_ITS ---
WS: [id number] XR chest 1V portable [id number] REASON FOR EXAM: chest drain insertion FINDINGS: Compared to the examination of 1:32 PM, there has been further expansion of the right lower lung and significant reduction in the right pneumothorax. The right upper lobe remains completely airless. Sma ll residual pneumothorax is seen in the apex. No other interval change or new finding. XR/XR chest 1V portable [id number] IMPRESSION: Reduction of right pneumothorax above.
--- NOTE | 2022-02-28 14:19 | ANE.PACU2 ---
Inpatient post-anesthesia follow up: Airway intact: Yes Vital signs: Temperature 97.2 F Pulse Rate 86 Respiratory Rate 20 Blood Pressure 101/61 Pulse Oximetry 91 Oxygen Delivery Me thod Nasal Cannula Oxygen Flow Rate 6 Fraction of Inspir ed Oxygen 6 Hydration adequate: Yes Nausea and vomiting: No Pain level: 1 Mental status: Baseline
--- NOTE | 2022-02-28 16:32 | PM.OP ---
Operative Report Date of procedure: February 28, 2022 Pre-op diagnosis: Preop Diagnosis possible mucous plug Post-op diagnosis: Same Procedure: Name of the procedure: Bronchoscopy with inspection of the airway, bronchoalveolar lavage, airway clearance and control of bleeding Indication: Possible mucous plugging Anesthesia: Monitored anesthesia care Local anesthesia: The vocal cords, trachea, david and the right and left mainstem bronchi were anesthetized with 1% lidocaine, 7 mL. Description of the procedure: The procedure was explained to the patient and the consent was obtained. The patient was brought to the OR. The patient underwent monitored anesthesia care. Following induction of anesthesia, the bronchoscope was advanced through the mouth. The vocal cords are normal. The vocal cords were anesthetized with 1% lidocaine, 3 mL. The bronchoscope was introduced through the vocal cords under direct visualization. The upper and lower trachea are normal. There is mild mucus in the trachea. The trachea was incised with 1% lidocaine, 2 mL. The david and right and left mainstem bronchi are anesthetized with 1% lidocaine as well. The david was sharp. In a systematic manner bilateral bronchial tree was then examined. The bronchoscope was advanced into the left mainstem bronchus. The left upper lobe, lingula and left lower lobe bronchi were examined up to the third subsegmental level and no abnormalities were identified. There was mild mucus throughout the left side. The bronchoscope was then introduced into the right mainstem bronchus. Irregular mucosa into the entrance of the right upper lobe was visible again. This area has been previously biopsied and was positive for lung cancer. Mucous plug was noted in the bronchus intermedius and was suctioned out. After clearing the mucous plug, the bronchoscope was introduced in the right middle lobe and lower lobe bronchi up to the third subsegmental level. No other mucous plugging was noted. Bronchoalveolar lavage was performed from the medial segment of the right middle lobe. 60 mL of saline was instilled, fluid return was 20 mL. The fluid was cloudy. Samples: 1. Bronchoalveolar lavage specimen was sent for gram stain culture. Complication: No immediate complications.
--- NOTE | 2022-02-28 16:37 | PM.OP ---
Operative Report Date of procedure: February 28, 2022 Pre-op diagnosis: Preop Diagnosis malignant pleural effusion Preop Diagnosis same Brief History: This is a 72-year-old gentleman with metastatic adenocarcinoma of the lung. The patient was recently hospitalized with worsening right-sided pleural effusion. Pleural fluid cytology was positive for malignancy. The patient underwent bronchoscopic evaluation for mucous plugging of the right lung. After the bronchoscopy the patient underwent right-sided Pleurx catheter placement. Procedure: Name of the procedure: Right-sided Pleurx catheter placement under ultrasound guidance Anesthesia: Monitor anesthesia care. Local: 1% lidocaine 20 mL. Description of the procedure: The patient was brought to the OR and monitored anesthesia care was started by the anesthesia team. The patient was placed in left lateral position. Using the ultrasound a safe fluid pocket was identified in the right seventh intercostal space in the posterior axillary line. The site was marked and double checked with ultrasound. Free-flowing fluid with positive plankton sign was again noted. The patient was then prepared using sterile technique. 1% lidocaine was used to anesthetize the skin and subcutaneous tissue and periosteum. However, despite advancing the needle no pleural fluid was aspirated. Air was aspirated instead of fluid. At this point, the procedure was stopped. I had used ultrasound maintaining a sterile technique. Interestingly, this time, the pleural fluid was noted to intercostal spaces below the initially marked site. There was positive Curtain sign 1 space below where the initial yuly was placed. This was likely due to the expansion of the right lung after the mucous plug was removed. A safe fluid pocket was identified again which was 2 intercostal spaces below the original site. The area was anesthetized with 1% lidocaine, the skin, subcutaneous tissue and periosteum was anesthetized again. The needle was advanced to pleural fluid was aspirated. Straw-colored fluid was aspirated. The introducer needle was then introduced into the pleural space. The guide wire was introduced and left in place. About 6 cm from the initial introduction site in the anterolateral chest wall a second incision was made. The pleural catheter was then tunneled under the skin with the help of a trocar. The initial site was then dilated and the Pleurx catheter was advanced into the pleural space without any difficulty. The incision sites were sutured. There was good hemostasis. 1700 cc of straw-colored fluid was drained. Complications: Chest x-ray following the procedure revealed large right-sided pneumothorax without any tension. At this point, the Pleurx catheter was attached to the pleural drainage system by the help of Pleurx drainage system, Heimlich valve and the drainage system of the atrium. A repeat chest x-ray revealed nearly complete resolution of the right-sided pneumothorax.
--- NOTE | 2022-02-28 17:31 | XRR_ITS ---
PROCEDURE INFORMATION: Exam: XR Chest Exam date and time: 02/28/2022 5:46 PM Age: 72 years old Clinical indication: Condition or disease; Lung condition and disease; Pneumothorax; Additional info: Pneumo TECHNIQUE: Imaging protocol: Radiologic exam of the chest. Views: 1 view. COMPARISON: CR (CHEST, ) 02/28/2022 4:52 PM FINDINGS: Tubes, catheters and devices: Stable left [id number]. Stable medial left pleural chest tube. Lungs: Stable consolidation in the right upper lobe. Slightly increased consolidation in the right lung base. The left lung is clear. Pleural spaces: The right apical pneumothorax is no longer visualized. Heart/Mediastinum: Unremarkable. No cardiomegaly. Bones/joints: Unremarkable. XR/XR chest 1V portable [id number] IMPRESSION: 1. No definite pneumothorax visualized. 2. Increased atelectasis or pneumonia in the right lung base. 3. Stable consolidation in the upper right lung.
[2022-02-28 17:33] LABS: Glucose Point of Care 173 mg/dL (70-110)
--- NOTE | 2022-02-28 17:43 | PC.NURSE ---
patient o2 dropping and maintaining 83-84%Dr strickland notified instruction to s increase o2 no change after intervention patient is not in any distress denies SOB notable asymetry to chest with little to no lung sounds on right chest tube in place high suction in place patent instructions received to start heated high flow and obtain Stat chest xray rt at bedside
[2022-02-28 18:04] LABS: ABG PCO2 44.7 mmHg (35-45); ABG PH Result 7.45 (7.35-7.45); Alveolar-Arterial Oxygen Gradi 77.9 mmHg (5-10); Arterial Blood Gas Hematocrit 38.6 % (42-52); Base Excess ABG 6.3 mmol/L (-2.0-2.0); Blood Gas Allen Test Pos; Blood Gas Operator Identificat BD; Blood Gas Sample Site Brachial, left; Blood Gas Sample Type Arterial; Carboxyhemoglobin 1.2 %THgb (0.4-20.1); HCO3 ABG 31.2 mmol/L (22-26); Ionized Calcium Level - ABG 1.2 mmol/L (1.1-1.4); Methemoglobin 0.2 % (0.4-1.5); Oxygen Device NC; Oxygen Saturation ABG 92.3; PO2 ABG 60.1 mmHg (80.0-100.0); Potassium Level - ABG 3.9 mmol/L (3.5-5.0); Total Hemoglobin 12.6 g/dL (14-18)
--- NOTE | 2022-02-28 18:04 | CTR_ITS ---
PROCEDURE INFORMATION: Exam: CT Chest Without Contrast; Diagnostic Exam date and time: 02/28/2022 6:51 PM Age: 72 years old Clinical indication: Condition or disease; Lung condition and disease; Cancer of the lung; Right; Unspecified; Additional info: RT lung chest tube with fluid, HX of metastatic lung CA TECHNIQUE: Imaging protocol: Diagnostic computed tomography of the chest without contrast. Radiation optimization: All CT scans at this facility use at least one of these dose optimization techniques: automated exposure control; mA and/or kV adjustment per patient size (includes targeted exams where dose is matched to clinical indication); or iterative reconstruction. COMPARISON: CT chest wo con [id number] 02/25/2022 10:11 PM RADIATION DOSE METRICS: Total DLP (mGy-cm): 558.25 FINDINGS: Tubes, catheters and devices: Right pleural chest tube with tip in the anteromedial pleural space. Lungs: Partial re-expansion of the right middle and lower lobes with patchy mixed ground-glass and airspace opacities. Persistent consolidation of the right upper lobe with total loss of air bronchograms. Emphysema. The left lung is clear. Pleural spaces: Small anterior right pneumothorax. Heart: Coronary artery calcifications. The heart size is normal. Lymph nodes: Prominent mediastinal and hilar lymph nodes are most likely reactive. Vasculature: Unremarkable. No aortic aneurysm. Kidneys and ureters: Right renal cyst, Hounsfield units less than 20. No follow-up imaging recommended. Bones/joints: Scoliosis of the thoracic spine. Stable T7 and T12 compression fractures. Soft tissues: Unremarkable. CT/CT chest wo con [id number] IMPRESSION: 1. Partial re-expansion of the right middle and lower lobes with persistent patchy pneumonia or aspiration. 2. Persistent inhomogenous consolidation of the right upper lobe. This may be infectious but a malignant neoplastic process is not excluded. 3. Right pleural chest tube in place with small anterior pneumothorax. COMMENTS: Consistent with the [employer]'s Incidental Findings Committee white paper (J Am Zev Radiol 2018): Any incidental renal lesion less than 1 cm or classified as too small to characterize, or any incidental cystic renal lesion characterized as simple-appearing, is likely benign. No follow-up imaging is recommended for these lesions per consensus recommendations based on imaging criteria.
--- NOTE | 2022-02-28 18:19 | PC.NURSE ---
Dr strickland to bedside with instructions to obtain Ct without contrast for further evaluation of Pnemo evaluation of chest tube remains patent
[2022-02-28 21:27] LABS: Glucose Point of Care 158 mg/dL (70-110)
[2022-02-28] MEDS: oxyCODONE-APAP 5-325 mg Tablet 1 TAB PO (21:48)
--- NOTE | 2022-02-28 22:00 | XR_ITS ---
WS: [id number] XR chest 1V portable [id number] REASON FOR EXAM: Right-sided pneumothorax FINDINGS: The right pneumothorax appears to have been completely resolved. There are also now appears to be marielle e aeration of the right upper lobe and better aeration of the right lower lobe. XR/XR chest 1V portable [id number] IMPRESSION: Interval improvement in the right chest as above.
--- NOTE | 2022-02-28 22:02 | PC.NURSE ---
Dr Mirza called and requested ct report findings and follow up on patient condition. No new orders at this time.
[2022-02-28] MEDS: insulin lispro 100 unit/1 mL SUBCUT (22:06)
[2022-03-01] VITALS (17 sets, daily range): BP systolic 93–117; BP diastolic 52–73; PULSE 80–100; RESP 16–198; TEMP 36.7–36.8; O2SAT 92–98
[2022-03-01] MEDS: piperacillin-tazobactam 3.375 GM in sodium chloride 0.9% (plus) 50 ML IV ×3 (02:13→17:41)
[2022-03-01] MEDS: ipratropium 0.5 mg/2.5 mL Neb INHALATION ×4 (03:19→20:41)
[2022-03-01] MEDS: acetylcysteine 200 mg/mL SDV 4 mL INHALATION ×2 (03:19→08:30)
[2022-03-01] MEDS: levalbuterol 0.63 mg/3 mL Neb INHALATION ×4 (03:19→20:41)
[2022-03-01 06:18] LABS: Glucose Point of Care 132 mg/dL (70-110)
--- NOTE | 2022-03-01 06:46 | XR_ITS ---
WS: [id number] XR chest 1V portable [id number] REASON FOR EXAM: chest tube in place FINDINGS: Left chemotherapy port and catheter are unchanged. The right thorax chest tube appears unchanged. Diffuse reticular interstitial lung opacities throughout the lower lung field. Dense almost airless right upper lobe. On the previous examination of 5:48 PM 06/09/2022 there was mo re aeration in the right upper lung. The chest is otherwise unchanged. No new findings. XR/XR chest 1V portable [id number] IMPRESSION: Somewhat decreased aeration in the right upper lung compared to the previous ex am.
--- NOTE | 2022-03-01 06:52 | PC.NURSE ---
Turn off chest tube suction when CXR performed this a.m.per Dr Mirza.
[2022-03-01] MEDS: metoprolol tartrate 50 mg Tablet 75 MG PO ×2 (08:06→20:19)
[2022-03-01] MEDS: midodrine 5 mg TABLET 10 MG PO ×3 (08:06→20:19)
[2022-03-01] MEDS: fluoxetine 20 mg Capsule PO ×2 (08:07→17:41)
[2022-03-01] MEDS: atorvastatin 40 mg Tablet 20 MG PO (08:08)
[2022-03-01] MEDS: tamsulosin 0.4 mg Capsule PO (08:08)
[2022-03-01] MEDS: levETIRAcetam 500 mg Tablet PO ×2 (08:08→20:19)
[2022-03-01] MEDS: guaiFENesin 600 mg Tablet PO (08:09)
[2022-03-01] MEDS: aspirin 81 mg EC Tablet PO (08:09)
[2022-03-01] MEDS: budesonide 0.5 mg/2 mL Neb 0.25 MG INHALATION ×2 (08:29→20:41)
--- NOTE | 2022-03-01 10:58 | PC.NURSE ---
chest tube disconnected from suction apparatus by mayito michelle rn.attempt to evacuate drng via pleurex suction device.no drng noted.pleurex tube dressed per protocol using aseptic technique.pt tolerated procedure well.
[2022-03-01 11:59] LABS: Glucose Point of Care 192 mg/dL (70-110)
[2022-03-01] MEDS: insulin lispro 100 unit/1 mL SUBCUT ×2 (12:46→17:41)
[2022-03-01] MEDS: vancomycin 1,500 MG/300 ML PIGGYBACK 200 MG IV ×2 (12:47→23:17)
--- NOTE | 2022-03-01 14:17 | P.PN_ITS ---
Subjective Subjective: In last 24 hours patient underwent bronchoscopy where bronchoalveolar lavage along with airway clearing and mucous plug was suctioned out followed by Blackwater drain placement and draining of around 1700 cc of fluid. Post Blackwater drain placement patient developed right pneumothorax and drained the drain was attached to suction and subsequent CT scan and x-ray showed resolution of right-sided pneumothorax. Today morning on examination patient was on 50 L 80% FiO2 being turned down to high flow nasal cannula keeping saturations over 88%. Patient denies any nausea, vomiting, headache. Family at bedside. Suction on Adam drain was removed. Vitals/I&O/Wt Last Vital Signs Temp 97.9 F 02/28/22 15:10 Pulse 88 03/01/22 11:47 Resp 22 H 03/01/22 11:47 BP 106/60 03/01/22 11:47 Pulse Ox 96 03/01/22 11:47 O2 Del Method 03/01/22 11:47 O2 Flow Rate 18 03/01/22 11:47 FiO2 80 03/01/22 08:33 02/28/22 03/01/22 03/01/22 22:59 06:59 14:59 Intake Total 530 / 1280 0 / 1280 50 / 50 Output Total 325 / 2125 Balance 530 / -520 -325 / -845 50 / 50 Physical Exam Const: COMMON NORMALS: patient oriented x3 Resp: COMMON NORMALS: clear to auscultation bilaterally EFFORT & INSPECTION: Yes symmetric chest movement AUSCULTATION: clear to auscultation bilaterally OTHER: Bilateral wheezing present in both lung schroeder, diminished air entry at the right lung field particularly at the base Cardio: COMMON NORMALS: regular rate, regular rhythm, S1 normal heart sound present, S2 normal heart sound present, No gallops present (Cardio), No murmurs present (Cardio), No rub (Cardio) and Peripheral pulses 2+ throughout RATE: regular rate RHYTHM: regular rhythm HEART SOUNDS: S1 normal heart sound present and S2 normal heart sound present PERIPHERAL PULSES: Peripheral pulses 2+ throughout GI: COMMON NORMALS: Normal to inspection, nondistended, normoactive bowel sounds present, Soft to palpation, non-tender, No hepatosplenomegaly present and no masses AUSCULTATION: Yes normoactive bowel sounds PALPATION: Yes Soft to palpation and Yes No hepatosplenomegaly present RECTAL EXAM: Yes deferred Extremity: COMMON NORMALS: no clubbing, cyanosis or edema and no pedal edema Neuro: COMMON NORMALS: patient oriented x3 Data : 02/28/22 02:54 02/28/22 02:54 Micro: Microbiology 02/28/22 12:45 Gram Stain - Final Lung Right Middle Lobe Bronchial Washings Culture - Preliminary Staphylococcus aureus 02/23/22 19:25 Blood Culture - Final Blood NO GROWTH AFTER 5 DAYS 02/23/22 14:59 Blood Culture - Final Blood NO GROWTH AFTER 5 DAYS 02/25/22 11:30 Gram Stain - Final Thoracic Fluid Body Fluid Culture - Final A&P Assessment and plan (1) Acute and chronic respiratory failure with hypoxia: Status: Acute (2) Mucus plugging of bronchi: Status: Acute (3) Postobstructive pneumonia: Status: Acute (4) Malignant pleural effusion: Status: Acute (5) Non-small cell lung cancer metastatic to bone: Status: Acute (6) Atrial fibrillation: Status: Acute Qualifiers: Atrial fibrillation type: paroxysmal Qualified Code(s): I48.0 - Paroxysmal atrial fibrillation (7) Orthostatic hypotension: Status: Acute (8) Hyponatremia: Status: Acute Plan 71 year old male with PMH of A.fib on eliquis , COPD on 2 Ls home oxygen , recurrent syncope, CAD, ?Non-small cell lung cancer metastatic to bone on radiation therapy, was brought in with c/o generalized weakness, SOB with productive greenish sputum,going on for some time, denied any fever, chest pain, he also had a fall today at home during which happened during a pre syncopal episode. Acute on chronic hypoxic respiratory failure secondary to symptomatic significant right pleural effusion, possible underlying pneumonia, COPD exacerbation with baseline non-small cell lung Carcinoma on radiation therapy. Post lumbar drain placement. Overall 2800 cc of fluid drained during hospitalization. Fluid studies consistent with exudative. Mucous plug suction on bronchoscopy. Culture results from bronchoscopy consistent with Staph aureus. Awaiting sensitivities. Previously MRSA negative. For now continue with Zosyn. Start on vancomycin. Sensitivities are back. Wean down oxygen supplementation keeping saturation over 88 For COPD exacerbation: Switch to prednisone 40 mg oral daily. Continue with ipratropium, Xopenex every 6 hour, budesonide twice daily. Oxygen supplementation keeping saturation over 88%. History of diastolic dysfunction. EF 50 to 55% on last echocardiogram from November 2021. Patient is euvolemic to mildly dehydrated. Hold off on IV Lasix. Normal saline at 50 cc/h for 1 bag. Strict input output charting, daily weights. Orthostatic hypotension: Could be secondary to diuresis along with fluid loss from thoracentesis. Given chronic issues including malignancy, atrial fibrillation, diastolic heart failure patient would need on and off diuresis and thoracentesis. Midodrine 10 mg 3 times daily. Flomax 0.4 mg daily. Atrial fibrillation with rapid ventricular response: Heart rate controlled. We will switch to 50 mg oral metoprolol in a.m. and 75 mg nightly Restart Eliquis. Presyncope: Secondary to orthostatic hypotension Monitor blood pressures accordingly. Continue the chronic medications. PT evaluation. PUD prophylaxis: Protonix DVT PPX: On SCDS, Eliquis Code Status :Full code. Discussed again in detail with the patient. He wants to remain full code. He understands the acuity of his disease. Discharge planning: Discharge to home with home health within next 24 to 48 hours once oxygen supplementation trends Down to 5 to 6 L. Attestations Medical Necessity Statement*: Requires further hospitalization for management of acute on chronic hypoxic respiratory failure secondary to malignant pleural effusion, mucous plug of right lung, Staph postobstructive pneumonia, or thostatic hypotension Time Spent in Patient Care: Greater than 35 minutes Coding Level of Care Code Acute Residential Instructor for [facility] Diagnoses Acute and chronic respiratory failure with hypoxia J96.21 Mucus plugging of bronchi T17.500A Postobstructive pneumonia J18.9 Malignant pleural effusion J91.0 Non-small cell lung cancer metastatic to bone C34.90; C79.51 Atrial fibrillation I48.0 Atrial fibrillation type: paroxysmal Orthostatic hypotension I95.1 Hyponatremia E87.1
--- NOTE | 2022-03-01 16:12 | XRR_ITS ---
PROCEDURE INFORMATION: Exam: XR Chest Exam date and time: 03/01/2022 4:21 PM Age: 72 years old Clinical indication: Abnormal findings; Other: [place]; Patient HX: History-- follow up; PT has HX of lung mets; Additional info: Pneumothorax TECHNIQUE: Imaging protocol: Radiologic exam of the chest. Views: 1 view. COMPARISON: CR XR chest 1V portable [id number] 03/01/2022 7:17 AM FINDINGS: Tubes, catheters and devices: Left-sided Port-A-Cath. Lungs: Dense right upper lobe airspace opacification with right lower lobe patchy airspace opacification, similar to prior exam, concerning for underlying malignancy. Pleural spaces: Unremarkable. No pleural effusion. No pneumothorax. Heart/Mediastinum: Unremarkable. No cardiomegaly. Bones/joints: Unremarkable. XR/XR chest 1V portable [id number] IMPRESSION: Dense right upper lobe airspace opacification with right lower lobe patchy airspace opacification, similar to prior exam, concerning for underlying malignancy.
--- NOTE | 2022-03-01 16:38 | PC.NURSE ---
pt refuses to get up to chair,eat.states i just want to sleep
--- NOTE | 2022-03-01 17:18 | P.PN_ITS ---
Subjective Subjective: The patient was seen and examined. Appears to be tired. The patient had developed a pneumothorax after the Pleurx catheter placement yesterday. This was drained overnight with suction. This morning the suction was turned off and later the Heimlich valve was removed as well. Chest x-ray following Heimlich valve removal did not reveal any worsening of the pneumothorax. Yesterday evening, the patient developed worsening respiratory failure requiring high flow nasal cannula. Today we have been able to titrated down to humidified high flow. The latest chest x-ray revealed right upper lobe consolidative changes which is known malignancy. The patient has right lower lobe and middle lobe infiltrate consistent with postobstructive pneumonia pneumonia. Bronchoscopic evaluation yesterday revealed mucous plug in the right bronchus intermedius. Following the removal of the mucous plugs there has been expansion of the lung. The bronchoalveolar lavage is growing staph aureus. The patient has been started on vancomycin in addition to Zosyn. The Pleurx catheter drained approximately 50 cc of fluid today. Medications: Reviewed: Yes Vitals/I&O/Wt Last Vital Signs Temp 97.9 F 02/28/22 15:10 Pulse 90 03/01/22 15:24 Resp 21 H 03/01/22 15:24 BP 93/52 03/01/22 15:24 Pulse Ox 95 03/01/22 15:24 O2 Del Method 03/01/22 14:29 O2 Flow Rate 10 03/01/22 14:29 FiO2 80 03/01/22 08:33 03/01/22 03/01/22 03/01/22 06:59 14:59 22:59 Intake Total 0 / 1280 50 / 50 540 / 590 Output Total 325 / 2125 400 / 400 Balance -325 / -845 50 / 50 140 / 190 Physical Exam Narrative: General: Patient is awake alert and oriented, appears to be tired Neck: No JVD Respiratory: Auscultation: Reduced breath sound bilaterally, crackles at the right lower lung base, no wheezing but occasional rhonchi Cardiovascular: Regular rate and rhythm, S1-S2 present, no murmur, no peripheral edema. Abdomen: Soft, nontender, nondistended, positive bowel sound Musculoskeletal: No obvious joint deformity Skin: Mild erythema around the Pleurx catheter insertion site secondary to the insertion procedure itself, no evidence of cellulitis. Neuro: Mental status is normal, no gross cranial nerve deficit, gross normal motor function Data : 02/28/22 02:54 02/28/22 02:54 Micro: Microbiology 02/28/22 12:45 Gram Stain - Final Lung Right Middle Lobe Bronchial Washings Culture - Preliminary Staphylococcus aureus 02/23/22 19:25 Blood Culture - Final Blood NO GROWTH AFTER 5 DAYS 02/23/22 14:59 Blood Culture - Final Blood NO GROWTH AFTER 5 DAYS 02/25/22 11:30 Gram Stain - Final Thoracic Fluid Body Fluid Culture - Final Other data: I have reviewed the patient's laboratory, microbiologic and multiple radiologic imaging data since yesterday. A&P Assessment and plan (1) Non-small cell lung cancer metastatic to bone: This is a 72-year-old gentleman with recently identified metastatic adenocarc inoma of the lung. When I performed his bronchoscopy in November 2021, the patient had significant narro wing of the right upper lobe segmental bronchi. Repeat bronchoscopy revealed similar changes in the right upper lobe bronchus with narrowing. There was a mucous plug in the bronchus intermedius. After clearance of the mucous plug, the airways to the right middle lobe and lower lobe were patent. There has been no malignant infiltration of the airways. Status: Acute (2) Malignant pleural effusion: The patient underwent Pleurx catheter placement yesterday. This was complicated by pneumothorax which has resolved at this point. Drain system has been removed without any worsening of the pleural effusion. The patient can continue to have pleural drainage every other day for the time being. When the patient is ready for discharge, the drainage of the pleural fluid at home has already been set up. Status: Acute (3) COPD (chronic obstructive pulmonary disease): The patient has significant emphysema and carries a diagnosis of COPD. He has chronic hypoxemic respiratory failure. He has developed acute on chronic hypoxemic respiratory failure due to the pleural effusion as well as airway occlusion. He is on steroid and antibiotics. Status: Acute (4) Acute and chronic respiratory failure with hypoxia: Acute on chronic hypoxic respiratory failure is secondary to multiple etiologies. The patient has emphysema, COPD, complete infiltration of the right upper lobe with malignancy, malignant pleural effusion, postobstructive pneumonia. Status: Acute (5) Postobstructive pneumonia: The bronchoscopy revealed the growth of staph aureus. I think this is going to be methicillin sensitive staph aureus. Since the patient has been responding to Zosyn from before. However, for the time being we will continue with vancomycin. Will wait for the final microbiologic results. 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
[2022-03-01 17:34] LABS: Glucose Point of Care 153 mg/dL (70-110)
[2022-03-01 19:59] LABS: Glucose Point of Care 112 mg/dL (70-110)
[2022-03-01] MEDS: apixaban 5 mg Tablet PO (20:19)
[2022-03-02] VITALS (15 sets, daily range): BP systolic 67–114; BP diastolic 49–64; PULSE 87–102; RESP 16–20; TEMP 36.6–36.8; O2SAT 86–93
[2022-03-02] MEDS: piperacillin-tazobactam 3.375 GM in sodium chloride 0.9% (plus) 50 ML IV ×2 (01:20→11:02)
[2022-03-02] MEDS: ipratropium 0.5 mg/2.5 mL Neb INHALATION ×3 (02:29→14:32)
[2022-03-02] MEDS: levalbuterol 0.63 mg/3 mL Neb INHALATION ×3 (02:29→14:32)
[2022-03-02 05:46] LABS: Basophils % 0.1 %; Eosinophils % 0.1 %; Hematocrit 36.6 % (42.0-52.0); Hemoglobin 11.6 g/dL (11.7-16.6); Lymphocytes # 0.3 10^3/uL (0.8-4.8); Lymphocytes % 2.6 %; Mean Corpuscular HGB Conc 31.7 g/dL (30.0-36.0); Mean Corpuscular Hemoglobin 30.1 pg (28.0-34.0); Mean Corpuscular Volume 94.8 fl (80-94); Mean Platelet Volume 9.4 fL (7.4-10.4); Monocytes # 0.9 10^3/uL (0.2-0.9); Neutrophils # 10.38 10^3/uL (1.8-7.7); Neutrophils % 88.7 %; Nucleated Red Blood Cells % 0 %; Platelet Count 282 10^3/cmm (130-400); Red Blood Count 3.86 10^6/uL (4.1-5.3); Red Cell Distribution Width 15.9 % (12.1-15.1); White Blood Count 11.7 10^3/uL (4.0-10.0)
[2022-03-02 06:14] LABS: Alanine Aminotransferase 17 U/L (0-41); Albumin Level 2.3 g/dL (3.5-5.2); Alkaline Phosphatase 154 IU/L (40-130); Aspartate Amino Transferase 26 U/L (0-40); Blood Urea Nitrogen 20 mg/dL (8-23); Calcium 9.1 mg/dL (8.5-10.5); Carbon Dioxide 32 mmol/L (22-29); Chloride 98 mmol/L (98-107); Globulin 3.2 g/dL (1.3-4.6); Glucose 125 mg/dL (65-115); Osmolality Calculated 294 mOsm/kg (285-295); Sodium 140 mmol/L (136-145); Total Bilirubin 0.6 mg/dL (0.15-1.2); Total Protein 5.5 g/dL (6.6-8.7)
[2022-03-02 06:20] LABS: Anion Gap 13.3 (5-19); Potassium 3.3 mmol/L (3.5-5.1)
[2022-03-02 06:51] LABS: Glucose Point of Care 143 mg/dL (70-110)
[2022-03-02] MEDS: budesonide 0.5 mg/2 mL Neb 0.25 MG INHALATION (08:24)
[2022-03-02] MEDS: metoprolol tartrate 50 mg Tablet 75 MG PO (08:33)
[2022-03-02] MEDS: midodrine 5 mg TABLET 10 MG PO ×2 (08:33→16:11)
[2022-03-02] MEDS: predniSONE 20 mg Tablet 40 MG PO (08:34)
[2022-03-02] MEDS: levETIRAcetam 500 mg Tablet PO (08:34)
[2022-03-02] MEDS: aspirin 81 mg EC Tablet PO (08:34)
[2022-03-02] MEDS: tamsulosin 0.4 mg Capsule PO (08:34)
[2022-03-02] MEDS: apixaban 5 mg Tablet PO (08:34)
[2022-03-02] MEDS: atorvastatin 40 mg Tablet 20 MG PO (08:34)
[2022-03-02] MEDS: fluoxetine 20 mg Capsule PO ×2 (08:34→16:41)
[2022-03-02] MEDS: insulin lispro 100 unit/1 mL SUBCUT ×3 (08:35→16:40)
--- NOTE | 2022-03-02 09:11 | PC.SOCIAL ---
IMM update IMM Updated with patient. Verbalized an understanding. Copy Pg 2 provided. Initialled, dated, timed, and placed in chart.
[2022-03-02] MEDS: potassium chloride ER 20 mEq Tablet 80 MEQ PO (11:02)
--- NOTE | 2022-03-02 12:01 | PM.DCS ---
Discharge Providers Date of Admission: 02/23/22 23:04 Date of Discharge: March 02, 2022 Attending Provider at Admission: Israel Anaya MD Attending Provider at Discharge: Yinka Hernandez MD Consults: Pulmonology: Dr. Mirza Primary Care Provider: Fox Alston Diagnoses at Discharge Discharge Diagnosis (1) Non-small cell lung cancer metastatic to bone: Status: Acute (2) Malignant pleural effusion: Status: Acute (3) COPD (chronic obstructive pulmonary disease): Status: Acute (4) Acute and chronic respiratory failure with hypoxia: Status: Acute (5) Postobstructive pneumonia: Status: Acute (6) Mucus plugging of bronchi: Status: Acute (7) Physical deconditioning: Status: Acute Reason for Visit Reason for Visit: [facility] Hospital Course Hospital Course Keith Pennington is a 72 year old male with recent diagnosis of non-small cell lung cancer with diffuse metastatic disease to bones with past medical history of atrial fibrillation on Eliquis, COPD, chronic hypoxic respiratory failure, former smoker who is being treated with radiation therapy as an outpatient. The patient presented to the hospital on February 23 after sustaining a fall.? The patient also complained of generalized weakness, greenish sputum production and worsening shortness of breath.? In the emergency department, the patient underwent a CT angiogram which did not reveal any pulmonary embolism but the patient was found to have a large right-sided pleural effusion. The patient underwent thoracentesis on February 25 with 1100 cc of fluid removal.? In November, the patient did have a small right-sided pleural effusion which was not drained.? The pleural fluid study showed lymphocyte predominant exudative pleural effusion.? This is likely secondary to malignant pleural effusion.? The cytology report is not back yet. The patient had a repeat CT scan of the chest postthoracentesis revealed large right-sided pleural effusion.? The right lower lobe is atelectatic.? There is also no significant air movement in the right middle lobe and there is narrowing of the right lower lobe bronchi. Post thoracentesis patient had episodes of atrial fibrillation for which intermittently for a short period of time he was on Cardizem drip. Later his home dose of metoprolol was increased. Patient also developed orthostatic hypotension secondary to diuresis on admission. He has been started on midodrine and diuretics has been withheld for last 4 to 5 days. His orthostatics are better, he is not symptomatic anymore. Because of concerns for possible mucous plug versus localized spread of malignancy pulmonology was consulted and he underwent bronchoscopy and right-sided [place] drain placement on 02/28. During bronchoscopy mucous plug was suctioned out. Post Adam drain placement patient developed pneumothorax for which he was on suction and drainage for 12 hours after which pneumothorax had resolved and suction and drainage system was removed. Patient has remained stable since then and has been constantly improving with his oxygenation. Patient is down to 5 to 6 L of oxygenation. During hospitalization his blood cultures remain negative, bronc cultures came back positive for MRSA. Patient has finished a course of prolonged antibiotics for 5 to 7 days. Given his baseline condition, chronic hypoxic respiratory failure secondary to COPD and metastatic lung cancer patient is deconditioned, spends most of his time in in bed hence hospital bed is being arranged for his home. Safe discharge planning were discussed in detail multiple times with the patient and patient's family. Option for SNF was discussed multiple times but patient is reluctant and wants to go home. Home health has been arranged. He has been discharged in hemodynamic stable condition after home oxygen evaluation on oral linezolid for next 10 days. He is to follow-up with Dr. Mirza from pulmonology within next 4 to 7 days. He is to take midodrine 10 mg 3 times a day. His dose of metoprolol has been changed to 50 mg every morning and 75 mg every afternoon. He is to continue draining through the [place] drain as needed. Unfortunately because of severe physical deconditioning, baseline health and diagnosis of metastatic lung cancer on treatment patient is at a high risk of readmission. Physical Exam Const: COMMON NORMALS: patient oriented x3 Resp: COMMON NORMALS: clear to auscultation bilaterally EFFORT & INSPECTION: Yes symmetric chest movement AUSCULTATION: clear to auscultation bilaterally OTHER: Bilateral wheezing present in both lung schroeder, diminished air entry at the right lung field particularly at the base Cardio: COMMON NORMALS: regular rate, regular rhythm, S1 normal heart sound present, S2 normal heart sound present, No gallops present (Cardio), No murmurs present (Cardio), No rub (Cardio) and Peripheral pulses 2+ throughout RATE: regular rate RHYTHM: regular rhythm HEART SOUNDS: S1 normal heart sound present and S2 normal heart sound present PERIPHERAL PULSES: Peripheral pulses 2+ throughout GI: COMMON NORMALS: Normal to inspection, nondistended, normoactive bowel sounds present, Soft to palpation, non-tender, No hepatosplenomegaly present and no masses AUSCULTATION: Yes normoactive bowel sounds PALPATION: Yes Soft to palpation and Yes No hepatosplenomegaly present RECTAL EXAM: Yes deferred Extremity: COMMON NORMALS: no clubbing, cyanosis or edema and no pedal edema Neuro: COMMON NORMALS: patient oriented x3 Discharge Data Studies Completed and Pending Completed Studies During Hospitalization Category Date Time Status CT angio chest PE protcl [id number] Stat Cat Scan 02/23/22 13:[address] chest wo con [id number] Routine Cat Scan 02/25/22 21:[address] chest wo con [id number] Routine Cat Scan 02/28/22 18:[address] head wo/w con [id number] Stat Cat Scan 02/23/22 09:49 Completed CXRP [XR chest 1V portable [id number]] Urgent Exams 03/01/22 06:46 Completed XR chest 1V portable [id number] Routine Exams 02/28/22 13:18 Completed XR chest 1V portable [id number] Routine Exams 02/28/22 14:01 Completed XR chest 1V portable [id number] Routine Exams 02/28/22 22:00 Completed XR chest 1V portable [id number] Routine Exams 03/01/22 16:12 Completed XR chest 1V portable [id number] Stat Exams 02/25/22 11:28 Completed XR chest 1V portable [id number] Stat Exams 02/28/22 17:31 Completed US thoracentesis [id number] Routine Ultrasound 02/25/22 07:00 Completed Pending at discharge Category Date Time Status Bronch Washing Culture & GS Routine Lab 02/28/22 12:45 Results Complete Blood Count w/Auto AM LABS Lab 03/03/22 04:00 Ordered Comprehensive Metabolic Panel AM LABS Lab 03/03/22 04:00 Ordered Vancomycin Trough Timed Lab 03/02/22 23:30 Ordered Radiology Impressions Head CT 02/23/22 09:49 IMPRESSION: No acute intracranial abnormality. Chest CTA 02/23/22 13:59 IMPRESSION: 1. Negative for pulmonary embolism. 2. Atelectasis of the majority the right well with sparing of the anterior segments of the inferior right upper lobe and right middle lobe. 3. Moderate to large volume right pleural effusion. 4. Chronic appearing moderate compression deformities of T7 and T11. The findings at T7 are new from most recent comparison which along with a couple additional subcentimeter sclerotic lesions at T3 and T4 are suspicious for osseous metastatic disease and pathologic compression fractures. Right lateral 7th rib fracture, which also appears to have a metastatic lesion in this region with pathologic fracture. Thoracentesis Ultrasound 02/25/22 07:00 IMPRESSION: Uncomplicated ultrasound-guided thoracentesis with removal of [address] 02/28/22 18:04 IMPRESSION: 1. Partial re-expansion of the right middle and lower lobes with persistent patchy pneumonia or aspiration. 2. Persistent inhomogenous consolidation of the right upper lobe. This may be infectious but a malignant neoplastic process is not excluded. 3. Right pleural chest tube in place with small anterior pneumothorax. COMMENTS: Consistent with the [employer]'s Incidental Findings Committee white paper (J Am Zev Radiol 2018): Any incidental renal lesion less than 1 cm or classified as too small to characterize, or any incidental cystic renal lesion characterized as simple-appearing, is likely benign. No follow-up imaging is recommended for these lesions per consensus recommendations based on imaging criteria. Chest X-Ray 03/01/22 16:12 IMPRESSION: Dense right upper lobe airspace opacification with right lower lobe patchy airspace opacification, similar to prior exam, concerning for underlying malignancy. Microbiology 02/28/22 12:45 Lung Right Middle Lobe Gram Stain - Final 02/28/22 12:45 Lung Right Middle Lobe Bronchial Washings Culture - Final Methicillin Resis Staph Aureus 02/23/22 19:25 Blood Blood Culture - Final NO GROWTH AFTER 5 DAYS 02/23/22 14:59 Blood Blood Culture - Final NO GROWTH AFTER 5 DAYS 02/25/22 11:30 Thoracic Fluid Gram Stain - Final 02/25/22 11:30 Thoracic Fluid Body Fluid Culture - Final 02/23/22 14:00 Sputum - Expectorated Sputum Gram Stain - Final 02/23/22 14:00 Sputum - Expectorated Sputum Sputum Culture - Final 02/23/22 10:59 Urine,Clean Catch Urine Culture - Final 02/23/22 10:59 Urine,Clean Catch Legionella Urinary Antigen - Final 02/23/22 10:59 Urine,Clean Catch Bacterial Antigens - Final Laboratory Results WBC 11.7 10^3/uL (4.0-10.0) H 03/02/22 04:50 RBC 3.86 10^6/uL (4.1-5.3) L 03/02/22 04:50 Hgb 11.6 g/dL (11.7-16.6) L 03/02/22 04:50 Hct 36.6 % (42.0-52.0) L 03/02/22 04:50 MCV 94.8 fl (80-94) H 03/02/22 04:50 MCH 30.1 pg (28.0-34.0) 03/02/22 04:50 MCHC 31.7 g/dL (30.0-36.0) 03/02/22 04:50 RDW 15.9 % (12.1-15.1) H 03/02/22 04:50 Plt Count 282 10^3/cmm (130-400) 03/02/22 04:50 MPV 9.4 fL (7.4-10.4) 03/02/22 04:50 Neut % (Auto) 88.7 % 03/02/22 04:50 Lymph % (Auto) 2.6 % 03/02/22 04:50 [place] % (Auto) 8.0 % 03/02/22 04:50 Eos % (Auto) 0.1 % 03/02/22 04:50 Baso % (Auto) 0.1 % 03/02/22 04:50 Neut # (Auto) 10.38 10^3/uL (1.8-7.7) H 03/02/22 04:50 Lymph # (Auto) 0.3 10^3/uL (0.8-4.8) L 03/02/22 04:50 [place] # (Auto) 0.9 10^3/uL (0.2-0.9) 03/02/22 04:50 Eos # (Auto) 0.0 10^3/uL (0.0-0.8) 03/02/22 04:50 Baso # (Auto) 0.0 10^3/uL (0.0-0.1) 03/02/22 04:50 Nucleated RBC % (auto) 0 % 03/02/22 04:50 Total Counted Not Reportable 02/25/22 11:30 Nucleated RBCs # 0.0 /100WBC 03/02/22 04:50 PT 15.00 SECONDS (12.1-14.9) H 02/25/22 06:15 INR 1.14 (0.8-1.2) 02/25/22 06:15 Specimen Type Arterial 02/28/22 17:55 Sample Site Brachial, left 02/28/22 17:55 ABG pH 7.45 (7.35-7.45) 02/28/22 17:55 ABG pCO2 44.7 mmHg (35-45) 02/28/22 17:55 ABG pO2 60.1 mmHg (80.0-100.0) L 02/28/22 17:55 ABG HCO3 31.2 mmol/L (22-26) H 02/28/22 17:55 ABG O2 Saturation 92.3 02/28/22 17:55 ABG Base Excess 6.3 mmol/L (-2.0-2.0) H 02/28/22 17:55 Mac Test Pos 02/28/22 17:55 A-a O2 Gradient 77.9 mmHg (5-10) H 02/28/22 17:55 Hematocrit 38.6 % (42-52) L 02/28/22 17:55 Hgb O2 Saturation 91.0 % (95-100) L 02/28/22 17:55 Carboxyhemoglobin 1.2 %THgb (0.4-20.1) 02/28/22 17:55 Methemoglobin 0.2 % (0.4-1.5) L 02/28/22 17:55 Total Hemoglobin 12.6 g/dL (14-18) L 02/28/22 17:55 Sodium 133.0 mmol/L (131-143) 02/28/22 17:55 Potassium 3.9 mmol/L (3.5-5.0) 02/28/22 17:55 Glucose 178.0 mg/dL (70-115) H 02/28/22 17:55 Ionized Calcium 1.2 mmol/L (1.1-1.4) 02/28/22 17:55 O2 Delivery Device Nc 02/28/22 17:55 O2 Liters/Min 60.0 % 02/28/22 17:55 FiO2 100.0 % 02/28/22 17:55 Director Risk ID Bd 02/28/22 17:55 Sodium 140 mmol/L (136-145) 03/02/22 04:50 Potassium 3.3 mmol/L (3.5-5.1) L 03/02/22 04:50 Chloride 98 mmol/L (98-107) 03/02/22 04:50 Carbon Dioxide 32 mmol/L (22-29) H 03/02/22 04:50 Anion Gap 13.3 (5-19) 03/02/22 04:50 BUN 20 mg/dL (8-23) 03/02/22 04:50 Creatinine 0.2 mg/dL (0.7-1.2) L 03/02/22 04:50 GFR Calculation Not Reportable 03/02/22 04:50 Glucose 125 mg/dL (65-115) H 03/02/22 04:50 POC Glucose 143 mg/dL (70-110) H 03/02/22 06:30 Calculated Osmolality 294 mOsm/kg (285-295) 03/02/22 04:50 Calcium 9.1 mg/dL (8.5-10.5) 03/02/22 04:50 Magnesium 1.7 mg/dL (1.7-2.3) 02/26/22 02:53 Total Bilirubin 0.6 mg/dL (0.15-1.2) 03/02/22 04:50 AST 26 U/L (0-40) 03/02/22 04:50 ALT 17 U/L (0-41) 03/02/22 04:50 Alkaline Phosphatase 154 IU/L (40-130) H 03/02/22 04:50 Troponin T Baseline 15 ng/L (0-15) 02/23/22 10:46 Troponin T 120 Minute 12.62 ng/L (0-15) 02/23/22 12:40 Delta Troponin T -2.38 ABS# (0-10) L 02/23/22 12:40 Troponin T Hi Sens 6Hr 16.21 ng/L (0-15) H 02/23/22 17:00 Troponin T Hi Sens 6Hr Delta 1.21 ng/L (0-12) 02/23/22 17:00 Total Protein 5.5 g/dL (6.6-8.7) L 03/02/22 04:50 Albumin 2.3 g/dL (3.5-5.2) L 03/02/22 04:50 Globulin 3.2 g/dL (1.3-4.6) 03/02/22 04:50 Procalcitonin 0.14 ng/mL (0-0.5) 02/24/22 04:40 Urine Color Yellow (Yellow) 02/23/22 10:59 Urine Appearance Clear (CLEAR) 02/23/22 10:59 Urine pH 6.5 (5-7) 02/23/22 10:59 Ur Specific [place] 1.015 (1.005-1.030) 02/23/22 10:59 Urine Protein Neg (Negative) 02/23/22 10:59 Urine Glucose (UA) Norm (Normal) 02/23/22 10:59 Urine Ketones 1+ (Negative) H 02/23/22 10:59 Urine Blood 2+ (Negative) H 02/23/22 10:59 Urine Nitrate Negative (Negative) 02/23/22 10:59 Urine Bilirubin Neg (Negative) 02/23/22 10:59 Urine Urobilinogen 4 mg/dL (Negative) H 02/23/22 10:59 Ur Leukocyte Esterase Negative (Negative) 02/23/22 10:59 Urine RBC 15-25 /hpf (0-2) H 02/23/22 10:59 Urine WBC 0-4 /hpf (0-5) H 02/23/22 10:59 Ur Squamous Epith Cells 0-4 /hpf (0-5) H 02/23/22 10:59 Amorphous Sediment Not Reportable 02/23/22 10:59 Urine Bacteria Trace /hpf (NONE) 02/23/22 10:59 Hyaline Casts 10-15 /lpf H 02/23/22 10:59 Urine Mucus 2+ /hpf 02/23/22 10:59 Pleural Color Pale yellow (Pale Yellow) 02/25/22 11:30 Pleural Appearance Cloudy (CLEAR) 02/25/22 11:30 Pleural pH 8.00 (6.5-7.5) H 02/25/22 11:30 Pleural WBC 1158.000 /uL (0-1000) H 02/25/22 11:30 Pleural RBC 4.000 10^3/uL 02/25/22 11:30 Pleural Other Cells Not Reportable 02/25/22 11:30 Pleural Polynuclear % 7 % 02/25/22 11:30 Pleural Mononuclear % 93 % 02/25/22 11:30 Pleural Total Protein 3.6 g/dL 02/25/22 11:30 Pleural Albumin 1.2 g/dL 02/25/22 11:30 Pleural LDH 386 U/L 02/25/22 11:30 Pleural Glucose 161.0 mg/dL 02/25/22 11:30 Path Cons w/Slide Yes 02/25/22 11:30 Vitals Last Vital Signs Temp 97.9 F 03/02/22 07:54 Pulse 89 03/02/22 11:14 Resp 19 H 03/02/22 11:14 BP 107/60 03/02/22 11:14 Pulse Ox 91 03/02/22 11:14 O2 Del Method 03/02/22 11:14 O2 Flow Rate 5 03/02/22 11:14 FiO2 0 03/02/22 08:00 Discharge Plan Discharge Patient Disposition: Home Health Service Condition: Stable Prescriptions: New linezolid 600 mg tablet 600 mg PO BID 10 Days Qty: 20 0RF midodrine 5 mg Tablet 10 mg PO TID 30 Days Qty: 180 0RF prednisone 20 mg Tablet 40 mg PO DAILY 10 Days Qty: 20 0RF metoprolol tartrate 50 mg tablet 50 mg PO BID Qty: 75 0RF Rx Instructions: Take 1 tablet in morning and 1-1/2 tablet in the evening Continued ibuprofen 800 mg tablet 800 mg PO Q8H PRN (Reason: Pain) metformin 500 mg tablet 500 mg PO BID tizanidine 4 mg tablet 4 mg PO Q8H PRN (Reason: Spasms) simvastatin 20 mg tablet 40 mg PO DAILY omeprazole 20 mg capsule,delayed release(DR/EC) 20 mg PO BID fluoxetine [Prozac] 20 mg capsule 20 mg PO BID nitroglycerin 2.5 mg capsule, extended release 2.5 mg PO DAILY Rx Instructions: allow nitrate-free interval of approx. 10-12 hrs per 24-hour period levetiracetam [Keppra] 500 mg tablet 500 mg PO BID 90 Days Qty: 180 4RF Rx Instructions: Please give regular Keppra until XR is available. Rybelsus 3 mg tablet 3 mg PO DAILY finasteride 5 mg tablet 5 mg PO DAILY fluticasone propionate 50 mcg/actuation spray,suspension 1 spray intranasal DAILY PRN (Reason: Nasal Congestion) Rx Instructions: administer into each nostril tamsulosin 0.4 mg capsule 0.4 mg PO BID Spiriva Respimat 1.25 mcg/actuation mist 2 puff inhalation DAILY morphine 15 mg tablet extended release 15 mg PO Q12H 30 Days Qty: 60 0RF Eliquis 5 mg tablet 5 mg PO BID Qty: 180 3RF Hold Instructions: Resume on 01/17/22. (DME) Wheelchair See Rx Instructions .Route .MEDSUPPLY Qty: 1 0RF Rx Instructions: As directed albuterol sulfate 90 mcg/actuation HFA aerosol inhaler 2 puff INHALATION Q6H PRN (Reason: Shortness Of Breath) budesonide-formoterol 160-4.5 mcg/actuation HFA aerosol inhaler 1 puff INHALATION BID fluticasone furoate-vilanterol [Breo Ellipta] 200-25 mcg/dose blister with device 1 inh INHALATION DAILY aspirin 81 mg tablet,delayed release (DR/EC) 81 mg PO DAILY Changed furosemide 20 mg tablet 20 mg PO QAM PRN (Reason: edema) Qty: 10 0RF Discontinued amlodipine 10 mg tablet 10 mg PO DAILY metoprolol succinate 25 mg tablet extended release 24 hr 25 mg PO BID Qty: 180 3RF No Action Percocet 5-325 mg tablet 1 - 2 tab PO Q4H PRN (Reason: pain) Discharge Orders: Discharge Order (Routine); Ordered 03/02/22 Ordered By: Yinka Hernandez Referrals: [facility] [Outside] Fox Alston DO [Primary Care Provider] - 4-7 days You Mirza MD [Physician] - 4-7 days Discharge Diet: Cardiac and Diabetic Discharge Activity: Resume usual activity and Increase activity as tolerated Patient Instructions: COPD, Pleural Effusion (IP), How to Care for Your Chest or Abdominal Catheter (GEN), Thoracentesis (GEN), COPD Stoplight, Opioid Safety, Pneumonia Stoplight, Pneumonia - Viral Discharge Attestations Time Spent in Discharge Care*: greater than 30 min Specific Discharge Activities: educating patient, educating and/or supporting family/caregiver, discussing with pillowcase maker/social workers/dc planners, documenting/other paperwork and evaluating patient/reviewing data Status at Discharge: Cognitive status at discharge: cognitively intact, Behavioral status at discharge: cooperative, Functional status at discharge: other assisted ambulation, Overall status at discharge: patient is back to baseline Quality Metrics Clinical Quality Measures [ No reported AMI, CVA or VTE this stay] Coding Level of Care Code Acute Chg FW DC note Diagnoses Non-small cell lung cancer metastatic to bone C34.90; C79.51 Malignant pleural effusion J91.0 COPD (chronic obstructive pulmonary disease) J44.9 Acute and chronic respiratory failure with hypoxia J96.21 Postobstructive pneumonia J18.9 Mucus plugging of bronchi T17.500A Physical deconditioning R53.81
[2022-03-02] MEDS: vancomycin 1,500 MG/300 ML PIGGYBACK 150 MG IV (12:38)
--- NOTE | 2022-03-02 12:56 | PC.NURSE ---
patient sat in chair from 1100 to 1230
[2022-03-02 16:08] LABS: Glucose Point of Care 156 mg/dL (70-110)
[2022-03-02 16:22] LABS: Glucose Point of Care 145 mg/dL (70-110)
--- NOTE | 2022-03-02 17:35 | PC.NURSE ---
left chest port-a-cath flushed with 500 units heparin,then decannulated using aseptic technique.bandaid applied.discharge instructions given and explained to pt and cg.both verb understanding.discharged via w/c to exit at this time.pt's friend to drive pt home.
== END 2022-03-02 17:38 | disposition home health service (06) | DRG 180 ==
LOC: ER 14:56 → MEDSURG 15:42
PROVIDERS: Internal Medicine Critical Care Medicine; Admitting Provider Internal Medicine; Emergency Provider Family Medicine; PCP Family Medicine; Visit Provider Student in an Organized Health Care Education/Training Program
PROC: 0BJ08ZZ Inspection of Tracheobronchial Tree, Via Natural or Artificial Opening Endoscopic (ICD-10-PCS; CPT 31622; principal; 2022-02-28 12:00)
DX: C34.11 Malignant neoplasm of upper lobe, right bronchus or lung (principal); J15.211 Pneumonia due to Methicillin susceptible Staphylococcus aureus; J96.21 Acute and chronic respiratory failure with hypoxia; C79.51 Secondary malignant neoplasm of bone; J44.1 Chronic obstructive pulmonary disease with (acute) exacerbation; J44.0 Chronic obstructive pulmonary disease with (acute) lower respiratory infection; N13.8 Other obstructive and reflux uropathy; E87.1 Hypo-osmolality and hyponatremia; J91.0 Malignant pleural effusion; T17.890A Other foreign object in other parts of respiratory tract causing asphyxiation, initial encounter; J93.9 Pneumothorax, unspecified; I50.32 Chronic diastolic (congestive) heart failure; I48.0 Paroxysmal atrial fibrillation; Z99.81 Dependence on supplemental oxygen; I25.10 Atherosclerotic heart disease of native coronary artery without angina pectoris; N40.1 Benign prostatic hyperplasia with lower urinary tract symptoms; E11.9 Type 2 diabetes mellitus without complications; M48.062 Spinal stenosis, lumbar region with neurogenic claudication; Z85.828 Personal history of other malignant neoplasm of skin; F17.210 Nicotine dependence, cigarettes, uncomplicated; G40.909 Epilepsy, unspecified, not intractable, without status epilepticus; Z79.82 Long term (current) use of aspirin; Z79.51 Long term (current) use of inhaled steroids; Z79.01 Long term (current) use of anticoagulants; Z79.899 Other long term (current) drug therapy; Z79.84 Long term (current) use of oral hypoglycemic drugs; W18.30XA Fall on same level, unspecified, initial encounter; I95.1 Orthostatic hypotension
CPT/HCPCS: 31624; 32550; 32551; 32555; 36415; 36416; 36591; 36600; 70470; 71045; 71250; 71275; 77336; 77412; 80051; 80053; 80503; 81001; 82042; 82330; 82805; 82945; 82962; 83615; 83630; 83735; 83986; 84145; 84157; 84484; 85025; 85610; 86403; 87040; 87070; 87075; 87077; 87086; 87186; 87205; 87449; 87493; 88108; 89050; 93005; 94640; 94669; 94760; 96365; 96367; 96372; 97110; 97161; 97530; 99285; C1729; G0378; J0696; J1160; J1815; J1940; J1956; J2543; J2704; J2920; J3370; J3490; J7030; J7512; J7608; J7614; J7626; J7644; Q9967